=== PATIENT | male | born 1965 | race Caucasian/White ===

== ENCOUNTER 2018-12-22 04:43 | Inpatient (IN) | payer BC ==
[~2018-12-22] VITALS: Ht 185.4 cm; Wt 78.7 kg
[2018-12-22 05:58] LABS: Basophils # (auto) 0 uL; Basophils % (auto) 0.3 % (0.0-2.0); Eosinophils # (auto) 0 uL; Eosinophils % (auto) 0.2 % (0.0-7.0); Hematocrit 45.4 % (41.0-53.0); Hemoglobin 15.4 g/dL (13.5-17.5); Lymphocytes # (auto) 0.8 uL; Lymphocytes % (auto) 11.8 % (10.0-50.0); Mean Corpuscular Hemoglobin 32.5 pg (28.0-32.0); Mean Corpuscular Volume 95.7 fL (80.0-100.0); Monocytes # (auto) 0.5 uL; Monocytes % (auto) 7.8 % (0.0-12.0); Neutrophils # (auto) 5.2 uL; Neutrophils % (auto) 79.9 % (37.0-80.0); Nucleated Red Blood Cells % 0.2 %; Platelet Count (auto) 228 10^3/uL (140-450); Red Blood Cells 4.75 10^6/uL (4.5-5.90); White Blood Cell 6.5 10^3/uL (4.4-10.8)
[2018-12-22 06:20] LABS: Albumin 3.5 g/dL (3.4-5.0); Anion Gap 11 (5-15); Blood Urea Nitrogen 18 mg/dL (7-18); Calcium 8.6 mg/dL (8.5-10.1); Carbon Dioxide 24 mmol/L (21-32); Chloride 101 mmol/L (98-107); Glucose 144 mg/dL (74-106); Lipase 244 U/L (73-393); Potassium 3.3 mmol/L (3.5-5.1); Sodium 136 mmol/L (136-145)
[2018-12-22 06:27] LABS: Alanine Aminotransferase 108 U/L (16-61); Alkaline Phosphatase 110 U/L (45-117); Amylase 44 U/L (25-115); Aspartate Aminotransferase 80 U/L (15-37); BUN/Creatinine Ratio 20.2; Bilirubin, Total 1.1 mg/dL (0.2-1.0); GFR African American 114 mL/min; GFR Non-African American 94 mL/min; Total Protein 7.7 g/dL (6.4-8.2)
[2018-12-22] MEDS ORDERED: hydrALAZINE HCL 20 MG/ML VL IV ONE (06:30)
[2018-12-22] MEDS ORDERED: PANTOPRAZOLE 40 MG/10 ML VIAL INJ IV STA (06:39)
[2018-12-22] MEDS ORDERED: SODIUM CHLORIDE 0.9% 1,000 ML IVB ONE (06:39)
[2018-12-22] MEDS ORDERED: MORPHINE SULFATE 4 MG/ML SYR/VIAL IV ONE (06:45)
[2018-12-22] MEDS ORDERED: ONDANSETRON HCL 4 MG/2 ML VIAL IV ONE ×2 (06:45→11:15)
[2018-12-22 06:57] LABS: Urine Bacteria NONE SEEN /hpf (None Seen); Urine Blood Negative /uL (Negative); Urine Hyaline Cast FEW /lpf (0 - 2); Urine Specific Gravity 1.026 (1.001-1.035); Urine WBC 2 /hpf (0 - 3)
[2018-12-22] MEDS ORDERED: PIPERACILLIN-TAZOB 3.375GM 100 ML IV ONE (07:45)
[2018-12-22 08:48] LABS: INR 0.92 (0.9-1.15); Partial Thromboplastin Time 23.1 sec (23.78-33.04)
[2018-12-22] MEDS ORDERED: MIDAZOLAM HCL 1MG/1ML-2 ML VIAL ONE (09:01)
[2018-12-22] MEDS ORDERED: ROCURONIUM 10MG/ML 10ML VIAL IV ONE (09:01)
[2018-12-22] MEDS ORDERED: PROPOFOL 10 MG/ML 20 ML IV ONE (09:01)
[2018-12-22] MEDS ORDERED: fentaNYL CITRATE 100 MCG/2 ML VL ONE (09:01)
[2018-12-22] MEDS ORDERED: metroNIDAZOLE 500MG/100ML 100 ML IV ONE (09:09)
[2018-12-22] MEDS ORDERED: HYDROmorphone HCL 2 MG/ML VL ONE (09:58)
[2018-12-22] MEDS ORDERED: fentaNYL CITRATE 5 ML ONE (10:28)
[2018-12-22] MEDS ORDERED: HYDROmorphone HCL 2 MG/ML VL IV PRN ×2 (11:15)
[2018-12-22] MEDS ORDERED: hydrALAZINE HCL 20 MG/ML VL IV PRN (11:15)
[2018-12-22] MEDS ORDERED: ePHEDrine SULFATE 50 MG/ML AMP IV PRN (11:15)
[2018-12-22] MEDS: SODIUM CHLORIDE 0.9% 1,000 ML IV SCH ×2 (14:00→22:09)
[2018-12-22] MEDS ORDERED: NITROGLYCERIN 0.4 MG SL TAB SL PRN (14:00)
[2018-12-22] MEDS ORDERED: NICOTINE 21MG/24 HR TOPICAL PATCH TD ONE (14:00)
[2018-12-22] MEDS ORDERED: ONDANSETRON HCL 4 MG/2 ML VIAL IV PRN (14:00)
[2018-12-22] MEDS ORDERED: MORPHINE SULF INJ 2 MG/ML SYRINGE 1ML IV PRN ×2 (14:00)
[2018-12-22] MEDS ORDERED: THIAMINE 100mg/ml INJ (200mg/2ml VIAL) IV ONE (14:00)
[2018-12-22] MEDS ORDERED: FOLIC ACID 1 MG in D5W 5% 50 ML IV ONE (14:00)
[2018-12-22] MEDS ORDERED: PANTOPRAZOLE 40 MG/10 ML VIAL INJ IV ONE (14:00)
[2018-12-22] MEDS ORDERED: POTASSIUM CHL 20MEQ/100ML 100 ML IV ONE (14:00)
--- NOTE | 2018-12-22 15:00 | NUR ---
Telemetry admit from RADHA BEATRIZ KABA admitted to Telemetry unit after SBAR received. Patient oriented to BARBARA ASHRAF RN primary RN, unit, room, bed, and unit policies regarding patient care and visiting hours. Patient now on continuous telemetry monitoring, tele box # 23 and telemetry reading on arrival to unit is NORMAL SINUS RHYTHM 100 bpm. Patient placed on bedside oxygen, weighed by bed scale and encouraged to call if they need something. All questions and concerns addressed, patient verbalized understanding.
[2018-12-22 17:00] VITALS: BP 111/76
[2018-12-22] MEDS: HYDROmorphone HCL 2 MG/ML VL IV PRN ×2 (17:54→21:55)
[2018-12-22] MEDS: PIPERACILLIN-TAZOB 3.375GM 100 ML IV SCH (18:00)
--- NOTE | 2018-12-22 19:00 | NUR ---
Endorsed care to slot shift manager RNBrandie. No distress noted at this time.
--- NOTE | 2018-12-22 20:00 | NUR ---
Opening Shift Note Assumed care of patient, patient awake lying in bed. Patient is s/p bowel resction. Alert and oriented x 4. On oygen at 2L via NC with even and unlabored respirations. Patient has NGT to right nare. Colostomy to LLQ intact with minimal amount of liquid BM. Hypoactive bowel sounds present throughout. Mid abd incision with dressing CDI. Abd binder on. SCD's on to bilateral legs with machine on. No S/S of distress or SOB. Patient reports abd pain 5/10, patient reports pain is tolerable at this, educated patient on pain management, patient verbalized understanding. Patient remains NPO. Instructed on POC and to call for assist PRN, will continue to monitor for changes Q1hr and PRN.
[2018-12-22 21:27] VITALS: BP 131/87
[2018-12-23] MEDS: PIPERACILLIN-TAZOB 3.375GM 100 ML IV SCH ×4 (00:53→19:02)
[2018-12-23] MEDS: HYDROmorphone HCL 2 MG/ML VL IV PRN ×5 (03:51→23:04)
[2018-12-23 05:00] VITALS: BP 147/81
[2018-12-23 05:59] LABS: Basophils # (auto) 0 uL; Basophils % (auto) 0.2 % (0.0-2.0); Eosinophils # (auto) 0 uL; Lymphocytes # (auto) 0.5 uL; Lymphocytes % (auto) 8.4 % (10.0-50.0); Mean Corpuscular Hemoglobin 32.6 pg (28.0-32.0); Mean Corpuscular Hgb Conc. 34.2 g/dL (32.0-36.0); Mean Corpuscular Volume 95.4 fL (80.0-100.0); Monocytes # (auto) 0.6 uL; Monocytes % (auto) 9.9 % (0.0-12.0); Neutrophils # (auto) 4.7 uL; Neutrophils % (auto) 81.5 % (37.0-80.0); Platelet Count (auto) 151 10^3/uL (140-450); Red Blood Cells 3.98 10^6/uL (4.5-5.90); Red Cell Distribution Width 12.8 % (11.8-14.3); White Blood Cell 5.8 10^3/uL (4.4-10.8)
[2018-12-23 06:14] LABS: Albumin 2.2 g/dL (3.4-5.0); Calcium 6.9 mg/dL (8.5-10.1); Potassium 3.5 mmol/L (3.5-5.1)
[2018-12-23 06:19] LABS: BUN/Creatinine Ratio 12.1; Bilirubin, Total 1.4 mg/dL (0.2-1.0); Total Protein 5.3 g/dL (6.4-8.2)
[2018-12-23] MEDS: SODIUM CHLORIDE 0.9% 1,000 ML IV SCH ×3 (06:26→21:41)
--- NOTE | 2018-12-23 06:59 | NUR ---
Closing Note Patient resting in bed, on oxygen at 2L via NC with even and unlabored respirations. NGT to right nare secured and intact with 40ml dark green drainage. Colostomy to LLQ intact. Mid abd incision with dressing CDI. Abd binder on. SCD's on to bilateral legs with machine on. No S/S of distress or SOB. Patient remains NPO. Endorsed care to day shift RN.
--- NOTE | 2018-12-23 07:00 | NUR ---
Opening Shift Note Assumed care of patient, awake, alert, and oriented x4. No S/S of distress/SOB, but patient reports medial abdominal pain of 8/10. IV in right hand 20 gauge asymptomatic, intact, patent, and infusing normal saline at 125 mL/hour. NG tube patent, set to LIS, and draining dark green output. Valdez catheter patent and draining dark orange urine to gravity. Bed locked and in lowest position and call light is within reach. Instructed on POC and to call for assist PRN, and patient verbalized understanding. Will continue to monitor for changes Q1hr and PRN.
[2018-12-23] MEDS: NICOTINE 21MG/24 HR TOPICAL PATCH TD SCH (09:00)
[2018-12-23 09:03] VITALS: BP 148/83
[2018-12-23] MEDS: PANTOPRAZOLE 40 MG/10 ML VIAL INJ IV SCH (10:30)
[2018-12-23] MEDS: THIAMINE 100mg/ml INJ (200mg/2ml VIAL) IV SCH (10:30)
[2018-12-23] MEDS: FOLIC ACID 1 MG in D5W 5% 50 ML IV SCH (11:00)
[2018-12-23 12:58] VITALS: BP 147/90
--- NOTE | 2018-12-23 16:30 | NUR ---
Dr. Wilder at bedside. New orders received.
[2018-12-23 17:27] VITALS: BP 154/87
--- NOTE | 2018-12-23 19:01 | NUR ---
Miller catheter dc'd Order to discontinue miller catheter. Miller dc'd with clean technique following deflation of balloon. Patient tolerated well with no complaints of pain. Continue care.
[2018-12-23] MEDS: ALBUTEROL SULF 2.5 MG/0.5ML(0.5%) NEB SOLN NEB SCH ×2 (19:05→22:35)
[2018-12-23] MEDS: IPRATROPIUM BROM 0.5 MG/2.5ML INH SOL NEB SCH ×2 (19:05→22:35)
--- NOTE | 2018-12-23 19:56 | NUR ---
RECEIVED PATIENT FROM DAY SHIFT RN. PATIENT RESTING IN BED. NO S/S OF DISTRESS NOTED. C/O PAIN @ 5/10 AFTER PAIN MEDICATION GIVEN EARLIER. PATIENT UNDERSTOOD THE SCHEDULE OF PAIN MANAGEMENT. WILL COME BACK FOR PAIN MEDICATION WHEN THE TIME IS DUE AND PER PATIENT REQUEST. NG TUBE IN PLACE WITH LITTLE GREENISH FLUID OUT. SCD IN PLACE. POC INSTRUCTED AND ENCOURAGED PATIENT TO CALL FOR TECHNOLOGY RECRUITER IF NEEDED. BED IN LOWEST POSITION WITH SIDE RAILS UP X 2. CALL WILHELM WITHIN REACH. ALARM ON. CONTINUE TO MONITOR FOR CHANGES Q1H AND PRN.
[2018-12-23 20:44] VITALS: BP 154/87
[2018-12-23 21:00] VITALS: BP 142/96
--- NOTE | 2018-12-23 21:00 | NUR ---
IV removal PER PATIENT REQUESTED IV DC'd with clean sterile technique, catheter fully intact. Pressure dressing applied to site. Patient tolerated well. NOTE:
--- NOTE | 2018-12-23 21:01 | NUR ---
IV insertion IV access obtained, via clean sterile technique by inserting [22] gauge catheter at [RFA] after [1] attempt(s). IV secured properly. No trauma to site. Patient tolerated well. NOTE: []
--- NOTE | 2018-12-23 22:00 | NUR ---
ROUNDING CHECKED PATIENT, NO S/S OF DISTRESS NOTED. IV RUNNING WELL WITH NO C/O NOW. CONTINUE TO MONITOR.
--- NOTE | 2018-12-23 22:55 | NUR ---
PATIENT URINATED CLEAR AND LIGHT NATALIIA URINE ABOUT 100ML. NO S/S OF PAIN AND DIFFICULTY NOTED. CONTINUE TO MONITOR.
--- NOTE | 2018-12-23 23:04 | NUR ---
PATIENT C/O PAIN @ 04/22. MEDICATED PATIENT ORDERED. CONTINUE TO MONITOR.
--- NOTE | 2018-12-23 23:15 | NUR ---
RT AT BEDSIDE FOR BREATHING TREATMENT. PATIENT STATED NG TUBE WAS OUT. DOUBLE CHECKED, NG TUBE WAS AT THE SAME PLACE IT WAS AT THE BEGINNING OF THE SHIFT. TAPES SECURED. CONTINUE TO MONITOR.
[2018-12-24] MEDS: PIPERACILLIN-TAZOB 3.375GM 100 ML IV SCH ×5 (00:30→23:21)
--- NOTE | 2018-12-24 01:05 | NUR ---
ROUNDING CHECKED PATIENT. NO S/S OF DISTRESS NOTED. PATIENT REFUSED TO ROUND HIM LATER. RESPECTED PATIENT'S WISH AND ENCOURAGED PATIENT TO CALL FOR APPEALS REVIEWER VETERAN IF NEEDED. CONTINUE TO MONITOR.
--- NOTE | 2018-12-24 01:30 | NUR ---
PATIENT CALLED FOR IV PUMP BEEPING. THERE WAS PRESSURE. IV TUBE UNDER PATIENT'S BODY. FIXED IV TUBE. CONTINUE TO MONITOR.
--- NOTE | 2018-12-24 01:45 | NUR ---
SAW PATIENT WALKING ON THE HALLWAY, PATIENT UPSET AND LOOKING FOR ELEVATOR TO ER WITH NO NG TUBE. ASSISTED PATIENT BACK TO BED. CHARGE NURSE VIJAYA AWARE AND TALKED TO PATIENT IN THE ROOM. THE NG TUBE WAS ON THE FLOOR. PATIENT INSISTED TO TALK TO DOCTOR. WILL PAGE DOCTOR MENDIOLA FOR FURTHER INSTRUCTION. CONTINUE TO MONITOR.
--- NOTE | 2018-12-24 01:55 | NUR ---
Called/paged Dr. MENDIOLA called re:PATIENT'S CURRENT SITUATION AND PATIENT WOULD LIKE TO TALK TO MD. Waiting for call back. Continue care.
[2018-12-24] MEDS: ALBUTEROL SULF 2.5 MG/0.5ML(0.5%) NEB SOLN NEB SCH ×4 (02:00→14:00)
[2018-12-24] MEDS: IPRATROPIUM BROM 0.5 MG/2.5ML INH SOL NEB SCH ×4 (02:00→14:00)
--- NOTE | 2018-12-24 02:00 | NUR ---
returned call Dr. KELLY COVERED FOR DR MENDIOLA AND returned call, updated on patient status and reason for call, DR KELLY WANTED DR PALAFOX TO MAKE DECISION FOR NG TUBE AND TALK TO PATIENT. Continue care.
--- NOTE | 2018-12-24 02:04 | NUR ---
Called/paged Dr. PALAFOX called re: PATIENT DID NOT ON NG TUBE AND WOULD LIKE TO TALK TO DOCTOR. Waiting for call back. Continue care.
--- NOTE | 2018-12-24 02:22 | NUR ---
PATIENT WALKED OUT TO ELEVATOR AND STATED WOULD LIKE TO LEAVE FOR AMA, AND COME BACK TOMORROW. INSTRUCTED PATIENT NOT TO LEAVE FOR FURTHER TREATMENT. PATIENT INSISTED TO GO. CHARGE NURSE VIJAYA REPORTED. IV ACCESS REMOVED WELL PATIENT'S ID BAND. NO S/S OF DISTRESS NOTED AT THE TIME OF LEAVING.
--- NOTE | 2018-12-24 02:23 | NUR ---
PT LEFT, [place] TX NOT GIVEN
--- NOTE | 2018-12-24 02:58 | NUR ---
PER CHARGE NURSE VIJAYA, PATIENT IS SMOKING AND SECURITY WITH HIM NOW.
--- NOTE | 2018-12-24 03:30 | NUR ---
Patient transferred to my care. Patient is now in his new room with all belongings. Patient is very upset and agitated but alert and oriented x 4. Patient does not want to wear tele box or ID wristband. Per Gymnastic Teacher, Dr. Foster will be coming to see him shortly. Patient does not want anyone in his room that does not need to be here including CNAs. This RN will take scheduled vitals.
--- NOTE | 2018-12-24 03:50 | NUR ---
REPORTED GIVEN TO ANGELICA MURRAY.
[2018-12-24 04:00] VITALS: BP 149/89
--- NOTE | 2018-12-24 04:24 | NUR ---
Patient signed AMA form specifying that he does not want to wear wristband, tele box, and have an NG tube placed. AMA placed in chart.
--- NOTE | 2018-12-24 04:56 | NUR ---
MD Foster has seen the patient and has agreed that patient does not need NG tube at this time. MD Foster wanted to ensure that patient can receive Ativan q 6 hrs and to ensure patient does get the medication when available.
--- NOTE | 2018-12-24 05:12 | NUR ---
IV insertion IV access obtained, via clean technique by inserting a 22 gauge catheter into a vein in the left forearm after 1 attempts. IV secured properly. No trauma to site. Patient tolerated well.
[2018-12-24] MEDS: SODIUM CHLORIDE 0.9% 1,000 ML IV SCH ×3 (05:25→22:00)
[2018-12-24] MEDS: HYDROmorphone HCL 2 MG/ML VL IV PRN ×4 (05:25→20:35)
--- NOTE | 2018-12-24 06:05 | NUR ---
Patient agreed to allow laborer pipelines to take blood for lab tests.
--- NOTE | 2018-12-24 06:12 | NUR ---
Patient does not want breathing treatment at this time and his oxygen saturation is 94% on RA at this time with no SOB.
[2018-12-24] MEDS: LORazepam 2MG/ML-1ML VIAL IV PRN ×2 (06:14→12:34)
[2018-12-24 06:31] LABS: Basophils # (auto) 0 uL; Basophils % (auto) 0.5 % (0.0-2.0); Eosinophils # (auto) 0 uL; Eosinophils % (auto) 0.1 % (0.0-7.0); Hematocrit 36.6 % (41.0-53.0); Hemoglobin 12.5 g/dL (13.5-17.5); Lymphocytes # (auto) 0.4 uL; Lymphocytes % (auto) 6.4 % (10.0-50.0); Mean Corpuscular Hgb Conc. 34.2 g/dL (32.0-36.0); Mean Corpuscular Volume 96.3 fL (80.0-100.0); Monocytes # (auto) 0.5 uL; Monocytes % (auto) 8.2 % (0.0-12.0); Neutrophils % (auto) 84.8 % (37.0-80.0); Platelet Count (auto) 176 10^3/uL (140-450); Red Cell Distribution Width 12.6 % (11.8-14.3); White Blood Cell 5.9 10^3/uL (4.4-10.8)
[2018-12-24 06:46] LABS: BUN/Creatinine Ratio 12.3; Calcium 7.5 mg/dL (8.5-10.1); Magnesium 1.9 mg/dL (1.6-2.6); Phosphorus 2.3 mg/dL (2.5-4.90)
[2018-12-24 06:47] LABS: Potassium 2.9 mmol/L (3.5-5.1)
--- NOTE | 2018-12-24 07:00 | NUR ---
Respiratory note: SCHEDULED MED NEB TX NOT GIVEN. DOOR ON NOTE TO CHECK WITH RN BEFORE ENTERING ROOM, TERRI ROBERTS STATED PT DID NOT WANT MED NEB TX AT THIS TIME. TERRI ROBERTS, STATED NO DISTRESS NOTED WITH PT, PT IS ON 2L NC. WILL FOLLOW UP WITH PT FOR NEXT SCHEDULED TX.
--- NOTE | 2018-12-24 07:30 | NUR ---
Opening Shift Note Assumed care of patient, awake and alert. No S/S of distress/SOB. Pain reported to abdomen. Pain management options discussed with the patient. Instructed on POC and to call for assist PRN, will continue to monitor for changes Q1hr and PRN.
--- NOTE | 2018-12-24 07:41 | NUR ---
Endorsed low potassium critical value of 2.9 mEq to day shift RNArvind.
[2018-12-24 08:00] VITALS: BP 165/87
[2018-12-24 09:00] VITALS: BP 165/87
--- NOTE | 2018-12-24 10:57 | NUR ---
Respiratory note: SCHEDULED MED NEB TX NOT GIVEN. PATIENT WAS AWAKE AND ALERT NO DISTRESS NOTED PER TERRI FRENCH. TERRI FRENCH WAS IN ROOM WITH PATIENT.
[2018-12-24] MEDS: THIAMINE 100mg/ml INJ (200mg/2ml VIAL) IV SCH (11:12)
[2018-12-24] MEDS: NICOTINE 21MG/24 HR TOPICAL PATCH TD SCH (11:13)
[2018-12-24] MEDS: PANTOPRAZOLE 40 MG/10 ML VIAL INJ IV SCH (11:13)
[2018-12-24] MEDS: FOLIC ACID 1 MG in D5W 5% 50 ML IV SCH (11:13)
--- NOTE | 2018-12-24 13:00 | NUR ---
Patient reports that his son has sent him some stuff in the mail. The patient reports that the package is no where to be found in the hospital. i called PBX to ask if they have received a package today. They report that no package has been delivered today. PBX will notify security that the patient has not received a package.
--- NOTE | 2018-12-24 13:35 | NUR ---
Respiratory note: SCHEDULED MED NEB TX NOT GIVEN. PT IS STILL REFUSING ALL MED NEB TX'S PER RN MICKY. PATIENT DOES NOT WANT TO BE BOTHERED AND HAS A SIGN ON DOOR STILL FOR ALL STAFF.
[2018-12-24] MEDS ORDERED: POTASSIUM CHL 20 Meq TABLET PO ONE (16:15)
--- NOTE | 2018-12-24 16:50 | NUR ---
IV insertion IV access obtained, via clean sterile technique by inserting 22 gauge catheter at left forearm after 1 attempt. IV secured properly. No trauma to site. Patient tolerated well. NOTE:
--- NOTE | 2018-12-24 17:56 | NUR ---
PATIENT BLOOD PRESSURE ELEVATED. SYSTOLIC IN THE 180s. OBTAINED ORDERS FROM DOCTOR MAURY.
[2018-12-24 17:58] VITALS: BP 184/102
--- NOTE | 2018-12-24 18:25 | NUR ---
Respiratory note: NOTIFIED BY TERRI WEEKS, RESPIRATORY MED HAVE BEEN DISCONTINUED.
[2018-12-24] MEDS: hydrALAZINE HCL 20 MG/ML VL IV PRN ×2 (18:33→21:43)
[2018-12-24 18:55] LABS: Basophils # (auto) 0 uL; Basophils % (auto) 0.4 % (0.0-2.0); Eosinophils # (auto) 0 uL; Eosinophils % (auto) 0.3 % (0.0-7.0); Hematocrit 39.5 % (41.0-53.0); Hemoglobin 13.3 g/dL (13.5-17.5); Lymphocytes # (auto) 0.9 uL; Lymphocytes % (auto) 9.9 % (10.0-50.0); Mean Corpuscular Hemoglobin 32.4 pg (28.0-32.0); Mean Corpuscular Hgb Conc. 33.7 g/dL (32.0-36.0); Mean Corpuscular Volume 96.2 fL (80.0-100.0); Monocytes # (auto) 0.9 uL; Neutrophils # (auto) 7.2 uL; Neutrophils % (auto) 79.4 % (37.0-80.0); Platelet Count (auto) 246 10^3/uL (140-450); Red Cell Distribution Width 12.6 % (11.8-14.3)
[2018-12-24 19:16] LABS: BUN/Creatinine Ratio 12.7; Calcium 8.2 mg/dL (8.5-10.1); Potassium 3.5 mmol/L (3.5-5.1)
[2018-12-24 19:30] LABS: Phosphorus 2.3 mg/dL (2.5-4.90)
[2018-12-24 21:54] VITALS: BP 159/107
--- NOTE | 2018-12-24 22:00 | NUR ---
Opening Shift Note Assumed care of patient, awake and alert. No S/S of distress/SOB or pain. Instructed on POC and to call for assist PRN, will continue to monitor for changes Q1hr and PRN.
[2018-12-25] MEDS: HYDROmorphone HCL 2 MG/ML VL IV PRN ×5 (01:15→18:19)
[2018-12-25] MEDS: PIPERACILLIN-TAZOB 3.375GM 100 ML IV SCH ×4 (05:20→23:52)
[2018-12-25] MEDS: hydrALAZINE HCL 20 MG/ML VL IV PRN ×4 (05:20→22:02)
[2018-12-25 05:31] VITALS: BP 183/106
[2018-12-25] MEDS: SODIUM CHLORIDE 0.9% 1,000 ML IV SCH (06:00)
--- NOTE | 2018-12-25 07:14 | NUR ---
Report given to Kim Marrufo to assume care, patient is resting no distress.
--- NOTE | 2018-12-25 07:30 | NUR ---
Pt went outside AMA to smoke, pt made aware he is getting antibiotic at this time and needs to finish it before going outside but he is determined to go outside and finish his antibiotic when he come back.
--- NOTE | 2018-12-25 08:05 | NUR ---
pt is back in the room and re-connected to the IV antibiotic.
[2018-12-25 09:00] VITALS: BP 177/98
--- NOTE | 2018-12-25 09:30 | NUR ---
PAGED SECURITY PT REQUESTED TO TALK TO SECURITY PERSON REGARDING HIS PACKAGE, PER PT HIS SON SENT HIM 2 A PACKAGES FROM [employer] AND [employer] DELIVERED IT IN THE CATEGORY DEVELOPMENT ANALYST YESTERDAY BUT HE DID NOT RECEIVE THE PACKAGE, PER PT HE GOT CONFIRMATION THAT IT WAS DELIVERED YESTERDAY AT [facility] AND SIGNED BY 2 PERSON. PAGED SECURITY TO TALK TO THE PT.
[2018-12-25] MEDS: THIAMINE 100mg/ml INJ (200mg/2ml VIAL) IV SCH (09:31)
[2018-12-25] MEDS: PANTOPRAZOLE 40 MG/10 ML VIAL INJ IV SCH (09:31)
[2018-12-25] MEDS: NICOTINE 21MG/24 HR TOPICAL PATCH TD SCH (09:33)
[2018-12-25] MEDS: FOLIC ACID 1 MG in D5W 5% 50 ML IV SCH (10:51)
--- NOTE | 2018-12-25 10:59 | NUR ---
PT SEEN BY DR. CHINCHILLA HE SAID HE WILL CALL DR. PALAFOX REGARDING DIET ORDER. Addendum: 12/25/18 at 1223 by Niru Gil RN [id number] DR. MENDIOLA ORDERED TO CHANGE IV TO D5 1/2 NS AT 125 MLS /HR.
--- NOTE | 2018-12-25 11:51 | NUR ---
DR. MENDIOLA AT BEDSIDE, AWARE OF HIGH BLOOD PRESSURE BUT PT REFUSED BLOOD PRESSURE MEDICATION, PT EDUCATED REGARDING RISK OF STOKE BUT PT STILL REFUSED.
[2018-12-25 12:29] LABS: BUN/Creatinine Ratio 20.4; Calcium 7.8 mg/dL (8.5-10.1); Potassium 3.5 mmol/L (3.5-5.1)
[2018-12-25] MEDS: D5W/SOD CHL 0.45% 1,000 ML IV SCH ×2 (13:57→20:15)
--- NOTE | 2018-12-25 14:41 | NUR ---
NUTRITION ASSESSMENT NOTES Please refer to link notes of nutrition screen form filed under the intervention section of the plan of care for further details. Est. Needs: 2000 kcal to 2400 kcal (25-30 kcal/kgBW), 81 gms to 97 gms pro (1.0-1.2 gms/kgBW). Will continue to monitor pertinent labs and reassess nutrient need prn Thank you. Addendum: 12/25/18 at [address] Amended: Links added.
--- NOTE | 2018-12-25 15:30 | NUR ---
SPOKE WITH DR. PALAFOX HE ORDERED CLEAR LIQUID DIET.
--- NOTE | 2018-12-25 15:37 | NUR ---
PT GIVEN JELO AND JUICE, WILL CONTINUE TO MONITOR.
[2018-12-25 17:00] VITALS: BP 164/98
--- NOTE | 2018-12-25 20:20 | NUR ---
Opening Shift Note Assumed care of patient, awake and alert. No S/S of distress/SOB or pain. Instructed on POC and to call for assist PRN, will continue to monitor for changes Q1hr and PRN.Patient is complaining that his i.v.pump is always beeping, so inserted another new i.v.line in the left forearm 22gauge x one attempt ,secured it properly in aseptic technique.
[2018-12-25 22:00] VITALS: BP 181/95
[2018-12-25] MEDS: LORazepam 2MG/ML-1ML VIAL IV PRN (22:02)
[2018-12-26] MEDS: HYDROmorphone HCL 2 MG/ML VL IV PRN ×3 (04:34→23:57)
[2018-12-26] MEDS: hydrALAZINE HCL 20 MG/ML VL IV PRN (04:34)
[2018-12-26 04:50] VITALS: BP 169/91
[2018-12-26] MEDS: PIPERACILLIN-TAZOB 3.375GM 100 ML IV SCH ×4 (05:29→23:56)
--- NOTE | 2018-12-26 06:00 | NUR ---
Dressing done in the post operative site, with povidone swab ,patient removed the old dressing. Addendum: 12/26/18 at 0623 by Jacqueline Chan RN Post op. site cleansed with povidone swab, dry with dry gauze and covered with mepore dressing, operative site is very clean ,no signs of infection noted.
--- NOTE | 2018-12-26 06:00 | NUR ---
Colostomy bag emptied and rinsed , with moderate amount of yellow liquid stool output.
[2018-12-26] MEDS: D5W/SOD CHL 0.45% 1,000 ML IV SCH ×3 (06:04→20:15)
[2018-12-26 06:14] LABS: Basophils # (auto) 0 uL; Basophils % (auto) 0.3 % (0.0-2.0); Eosinophils # (auto) 0 uL; Eosinophils % (auto) 0.5 % (0.0-7.0); Hematocrit 43.4 % (41.0-53.0); Hemoglobin 14.8 g/dL (13.5-17.5); Lymphocytes # (auto) 0.7 uL; Mean Corpuscular Hemoglobin 32.2 pg (28.0-32.0); Mean Corpuscular Volume 94.7 fL (80.0-100.0); Monocytes # (auto) 1.1 uL; Monocytes % (auto) 13.7 % (0.0-12.0); Neutrophils % (auto) 76.5 % (37.0-80.0); Nucleated Red Blood Cells % 0.1 %; Platelet Count (auto) 298 10^3/uL (140-450); Red Blood Cells 4.59 10^6/uL (4.5-5.90); Red Cell Distribution Width 12.9 % (11.8-14.3); White Blood Cell 7.8 10^3/uL (4.4-10.8)
[2018-12-26 06:39] LABS: BUN/Creatinine Ratio 9.7; Calcium 8.6 mg/dL (8.5-10.1); Potassium 3.5 mmol/L (3.5-5.1)
--- NOTE | 2018-12-26 07:27 | NUR ---
Report given to Kim Mays to assume care, patient is resting no distress noted.
--- NOTE | 2018-12-26 08:00 | NUR ---
Opening Shift Note Assumed care of patient, awake and alert. No S/S of distress/SOB or pain. With midline abdominal incision with rasta intact, colostomy on ther left side of abdomen intact draining to liquid stools in moderate amount. Patient verbalized desire to be discharge today if OK with the doctors. Instructed on POC and to call for assist PRN, will continue to monitor for changes Q1hr and PRN.
[2018-12-26] MEDS: NICOTINE 21MG/24 HR TOPICAL PATCH TD SCH (08:39)
[2018-12-26] MEDS: THIAMINE 100mg/ml INJ (200mg/2ml VIAL) IV SCH (08:39)
[2018-12-26] MEDS: PANTOPRAZOLE 40 MG/10 ML VIAL INJ IV SCH (08:39)
[2018-12-26 09:00] VITALS: BP_SYST 141; BP_SYST 157; BP_DIAS 91; BP_DIAS 98
[2018-12-26] MEDS: FOLIC ACID 1 MG in D5W 5% 50 ML IV SCH (09:34)
[2018-12-26] MEDS: LORazepam 2MG/ML-1ML VIAL IV PRN (12:37)
[2018-12-26 13:00] VITALS: BP 139/89
[2018-12-26 21:30] VITALS: BP 137/98
--- NOTE | 2018-12-26 21:50 | NUR ---
Pt is asking for changing his colostomy bag because he thinks is leaking. Colostomy bag changed. Pt tolerated well Also changed the abdominal dressing
--- NOTE | 2018-12-26 22:00 | NUR ---
Dressing wet and dirty again. while changing dressing observed coming out of the abdominal incision a serous yellow liquid making the new dressing wet. Paged doctor Cristian.
--- NOTE | 2018-12-26 22:15 | NUR ---
Doctor Foster on bedside removing a rasta and suction yellow fluid from the incision with Yankauer catheter. After suction incision was dressed with 4x4 gauze and new colostomy bag was applied. Pt tolerated well. Received order for wound vac via Wound Care from doctor Foster.
[2018-12-27] MEDS: LORazepam 2MG/ML-1ML VIAL IV PRN (00:44)
[2018-12-27] MEDS: D5W/SOD CHL 0.45% 1,000 ML IV SCH ×3 (04:15→20:15)
[2018-12-27 04:53] VITALS: BP 151/110
--- NOTE | 2018-12-27 05:30 | NUR ---
Pt woke up disoriented pulled his IV out, his dressing and wearing a blanket came out of his room. Not alert and oriented to place, time and situation.
--- NOTE | 2018-12-27 05:40 | NUR ---
Reoriented patient . Wants to go out to smoke. Disagreed and pt asked me to go outside with security. Called charge nurse . Charge nurse indicated to allow pt to go to smoke together with a PERSONNEL RESEARCH PSYCHOLOGIST. PERSONNEL RESEARCH PSYCHOLOGIST not available due to shift change . Pt left alone outside to smoke.
--- NOTE | 2018-12-27 06:00 | NUR ---
Pt on floor again.
[2018-12-27 06:13] LABS: Basophils # (auto) 0 uL; Basophils % (auto) 0.5 % (0.0-2.0); Eosinophils # (auto) 0.1 uL; Eosinophils % (auto) 1.2 % (0.0-7.0); Hematocrit 44.7 % (41.0-53.0); Hemoglobin 15.1 g/dL (13.5-17.5); Lymphocytes # (auto) 0.9 uL; Lymphocytes % (auto) 12.8 % (10.0-50.0); Mean Corpuscular Hemoglobin 32.2 pg (28.0-32.0); Mean Corpuscular Hgb Conc. 33.8 g/dL (32.0-36.0); Mean Corpuscular Volume 95.1 fL (80.0-100.0); Monocytes % (auto) 14.2 % (0.0-12.0); Neutrophils # (auto) 5.1 uL; Neutrophils % (auto) 71.3 % (37.0-80.0); Platelet Count (auto) 302 10^3/uL (140-450); Red Cell Distribution Width 12.9 % (11.8-14.3); White Blood Cell 7.1 10^3/uL (4.4-10.8)
[2018-12-27 06:33] LABS: Calcium 8.2 mg/dL (8.5-10.1); Potassium 3.5 mmol/L (3.5-5.1)
[2018-12-27 06:35] LABS: BUN/Creatinine Ratio 9.2
[2018-12-27] MEDS: PIPERACILLIN-TAZOB 3.375GM 100 ML IV SCH ×3 (07:25→17:44)
[2018-12-27] MEDS: HYDROmorphone HCL 2 MG/ML VL IV PRN ×3 (07:26→22:01)
--- NOTE | 2018-12-27 08:00 | NUR ---
Opening Shift Note Assumed care of patient, awake and alert. No S/S of distress/SOB or pain. With abdominal dressing intact soaked with serous output in moderate amount. Colostomy on left side draining to greenish liquid output in moderate. Instructed to call for assist PRN, will continue to monitor for changes Q1hr and PRN.
--- NOTE | 2018-12-27 08:52 | NUR ---
SS ORDER: faxed to [facility] per Michael at [facility] they will arrange wd vac, HH for pt as well as follow up appts
[2018-12-27] MEDS: PANTOPRAZOLE 40 MG/10 ML VIAL INJ IV SCH (09:12)
[2018-12-27] MEDS: THIAMINE 100mg/ml INJ (200mg/2ml VIAL) IV SCH (09:12)
[2018-12-27] MEDS: NICOTINE 21MG/24 HR TOPICAL PATCH TD SCH (09:13)
[2018-12-27 09:28] VITALS: BP 153/92
--- NOTE | 2018-12-27 10:30 | NUR ---
cover assembler at bedside. Application of wound Vac abdominal area incision site done. Will continue care.
[2018-12-27] MEDS: FOLIC ACID 1 MG in D5W 5% 50 ML IV SCH (10:33)
--- NOTE | 2018-12-27 11:00 | NUR ---
WOUND CARE NOTE: Wound care consult received from nursing to place wound vac to abdominal incision. Patient is a 53yo male s/p exploratory laparotomy with colostomy creation by Dr Edith Foster on 12/22/18. Per notes and bedside RNDavon, patient's incision has been leaking serous fluid and requiring frequent dressing changes throughout the shift. Patient with a midline incision, measuring ~15cm with [address] Patient also with a colostomy to LLQ. Old dressing removed, site cleansed with NS and no-sting skin barrier applied to periwound skin. Periwound skin then draped with transparent film. One piece black sponge place over incision line and covered with transparent film. Tract pad place and suction at 125mm Hg achieved and no leak detect. Patient tolerated well. Next dressing change due for 12/30/18. Addendum: 12/27/18 at 1643 by LORRAINE GABRIEL RN Amended: Links added.
[2018-12-27 12:11] VITALS: BP 143/80
--- NOTE | 2018-12-27 15:20 | NUR ---
Spoke with Yu MURRAYcare connector regarding forms needed to be faxed to [facility], patient needed home health wound vac prior to discharge that was ordered by Dr. Abe Preciado. Instructions received for clarification of the order with Dr. Lisette Foster if he wanted patient home health services for wound vac. Called Dr. Lisette Foster's office, spoke to one of the education courses sales representative and left a message for clarification. Waiting for call back.
--- NOTE | 2018-12-27 15:50 | NUR ---
Received a call from Dr. Lisette Foster, orders received. Patient will be discharged with wound vac and follow up with him as outpatient. May arranged home health services for wound vac.
--- NOTE | 2018-12-27 15:55 | NUR ---
Spoke with Yu MURRAYlivestock caretaker, clarification of home health services for wound vac ordered by Dr. Lisette Foster. Per Yu she will work on the paper works.
[2018-12-27 17:28] VITALS: BP 144/87
--- NOTE | 2018-12-27 20:20 | NUR ---
RECEIVED PT IN BED, A/O X4, IN NO ACUTE DISTRESS. DENIES PAIN/DISCOMFORT. ABDL MIDLINE INCISION INTACT CONNECTED TO WOUND VAC, COLOSTOMY ON LEFT SIDE PRESENT. POC REVIEWED WITH PT, VERBALIZED UNDERSTANDING. CALL LIGHT WITHIN REACH, ENCOURAGED TO CALL IF HELP IS NEEDED. SIDE RAILS UP X2, BED IN LOWEST LOCKED POSITION. PT CAME BACK FROM SMOKING, PER PT, HE ACCIDENTALLY FELL OUTSIDE, HE TRIPPED, DENIED HITTING HIS HEAD, NO PAIN AT THIS TIME. PT OBTAINED R WRIST SKIN TEAR, WOUND CLEANSED WITH NS, PATTED DRY AND COVERED WITH BANDAID. CONTINUE CARE. Addendum: 12/27/18 at 2300 by Gerardo Harper RN [id number]-DR Irene KELLY INFORMED OF INCIDENT.
[2018-12-27 21:30] VITALS: BP 154/90
--- NOTE | 2018-12-27 23:00 | NUR ---
DR Irene KELLY AT BEDSIDE. POC REVIEWED WITH PT. RADHA DC IN AM. PT AGREED. CONTINUE CARE.
[2018-12-28 04:30] VITALS: BP 159/101
[2018-12-28] MEDS: HYDROcodone-ACET 5/325MG TAB PO PRN ×2 (06:33→20:26)
--- NOTE | 2018-12-28 08:00 | NUR ---
Opening Shift Note Assumed care of patient, awake, alert and oriented X4. No S/S of distress/SOB, complains of left, lower quadrant pain, 5/10. IV to right forearm, 22 gauge, patent and saline locked. Left, lower quadrant colostomy draining greenish brow, soft stool into colostomy bag, seal intact, stoma beefy red. Midline abdominal incision with wound vac in place, dressing clean, dry and intact. Instructed on POC and to call for assist PRN, verbalized understanding. Bed locked, in lowest position, call light within reach, will continue to monitor for changes Q1hr and PRN.
[2018-12-28 08:30] VITALS: BP 156/92
[2018-12-28] MEDS ORDERED: THIAMINE HCL 100 MG TAB PO SCH (10:00)
[2018-12-28] MEDS ORDERED: SULFAMETHOX W/TRIMETH(800/160MG) DS TAB PO SCH (10:00)
[2018-12-28] MEDS ORDERED: FOLIC ACID 1 MG TAB PO SCH (10:00)
--- NOTE | 2018-12-28 10:15 | NUR ---
WOUND CARE NOTE: IN TO CHECK FUNCTION OF WOUND VAC AT THIS TIME. PATIENT HAS WOUND VAC TO ABDOMINAL INCISION. THERE IS APPROXIMATELY 50 CC OF SEROUS DRAINAGE WITHIN VACUTAINER. VAC SET AT 125 MM/HG CONTINUOUS. GOOD SUCTION, NO LEAKS DETECTED. THERE IS ORDER FOR WOUND VAC FOR HOME. CASE MANAGEMENT IS WORKING ON THIS. DR. PALAFOX HAS BEEN ADVISED TO SIGN HOME VAC REQUEST FORM IN FRONT OF PATIENT'S CHART. WOUND CARE TEAM WILL CONTINUE TO MONITOR.
[2018-12-28] MEDS: PANTOPRAZOLE 40 MG/10 ML VIAL INJ IV SCH (10:42)
--- NOTE | 2018-12-28 12:49 | NUR ---
Nutrition Follow-up Notes Wt.: 78.7 kg Pt was sleeping with no family by bedside. per pt records pt s/p sx for perforated viscus and colostomy. pt with no distress noted and advanced to regular diet with adequate PO of 100% x 4 per RN doc Est. Needs: 2000 kcal to 2400 kcal (25-30 kcal/kgBW), 81 gms to 97 gms pro (1.0-1.2 gms/kgBW). Will continue to monitor pertinent labs and reassess nutrient need prn Labs: CA 8.2 L. rest labs wnl for today Skin: Brenton scale 21, low risk, incision at site of sx per RN doc GI: Pt had 200 ml BM on 12/27 per clinical documentation improvement specialist. PES: Resolved: Increased nutrient needs r/t acute/chronic medical condition aeb s/p surgery, severe hypoalbuminemia, NPO. Altered nutrition related lab values r/t current/chronic medical condition aeb hypokalemia, hyperbilirubinemia, hypocalcemia and severe hypoalbuminemia Will continue to monitor PO intake skin status, pertinent labs and weight trend. F/u in 3-5 days. Rec.: 1.) If Albumin level continues trending down, consider Prostat 1 pkt BID. 2.) Refer to RD for further nutrition education and weight monitoring upon discharged. 3.) Continue current plan of care.
[2018-12-28 13:28] VITALS: BP 117/70
--- NOTE | 2018-12-28 14:57 | NUR ---
SURGEON Paged Dr Lisette Foster for a second time to follow up if patient needs to go home with a wound vac and if so, wound vac order needs to be signed by him. Awaiting return call.
--- NOTE | 2018-12-28 16:13 | NUR ---
auth for wound vac from Kailey at [facility] is [id number]
[2018-12-28 17:26] VITALS: BP 147/90
--- NOTE | 2018-12-28 18:24 | NUR ---
SURGEON Third message left for Dr Lisette Foster to return call regarding the need for wound vac for home and to have wound vac order signed.
--- NOTE | 2018-12-28 19:18 | NUR ---
Care endorsed to TERRI Cook, night nurse.
--- NOTE | 2018-12-28 19:20 | NUR ---
Opening Shift Note Assumed care of patient from day shift RN Sonia. Patient is awake and alert with no S/S of distress. Wound vac is intact at 125 MMHG continuous. Bed is in lowest position, locked, and call light is in place. Instructed on POC and to call for assist PRN, will continue to monitor for changes Q1hr and PRN.
[2018-12-28] MEDS ORDERED: SULF400T11 PO (20:20)
[2018-12-28] MEDS ORDERED: THIA100T10 PO (20:20)
[2018-12-28] MEDS ORDERED: FOLI1TAB6 PO (20:20)
[2018-12-28 20:23] VITALS: BP 153/95
[2018-12-28] MEDS ORDERED: ACET650T12 PO (20:53)
[2018-12-28] MEDS ORDERED: HYDR-4683 PO (20:53)
--- NOTE | 2018-12-28 21:30 | NUR ---
MS Discharge Discharge instructions given as ordered. Encourage to follow up with PMD as instructed. All questions and concerns addressed. Education given on wound vac and colostomy care. Patient verbalized understanding. Medication reconciliation form completed and copy given to patient. No home medications at Pharmacy. Patient taken to vehicle via wheelchair with all personal belongings, accompanied by staff. No distress noted at time of departure.
--- NOTE | 2018-12-29 10:47 | NUR ---
ss order: Ostomy order faxed to [facility]. Yesterday I faxed [facility] to let them know that pt would need ostomy supplies for home
--- NOTE | 2018-12-29 14:00 | NUR ---
I faxed [employer] form to [facility] approx 30 min ago and tried to talk with rep but he was not available and to call me back. [facility] form updated with [place] and pt's address. I also called pt and informed him of sequence of events and that either myself or Miguelangel RONDON RN for [facility] would call pt with updated information. I attempted to call Kailey at [facility] however she was not available and is to call me back.
--- NOTE | 2018-12-29 15:51 | NUR ---
CALLED [facility] AND WAS TOLD BY REKHA THAT THEY ARE PROCESSING ORDER. WD VAC TO BE DELIVERED VIA UPS TOMORROW. I CALLED [facility] TO LET THEM KNOW ABOUT WD VAC AND TO CALL US ONCE THE SWAP OUT [facility] WD VAC FOR OURS. I CALLED PT TO LET HIM KNOW ABOUT DELIVERY OF WD VAC AND HH TO SEE HIM TOMORROW
--- NOTE | 2018-12-30 08:46 | NUR ---
I called Miguelangel López RN to have him f/u on delivery of wd vac to pt and to call [facility]'s (abraham) [phone] to arrange switch of our wd vac to [facility] wd vac. Miguelangel to arrange nuclear engineering technician to supply analyst our wd vac from pt. Pt's address is [address], [place]
--- NOTE | 2018-12-30 09:20 | NUR ---
Per patient, the wound vac will be delivered to his house tomorrow instead of today. He knows hospital will send someone to pickle cutter the old wound vac after the new one is delivered. Home health nurse has already seen patient today. consumer insight manager, Ines is informed the arrangement.
--- NOTE | 2018-12-30 14:01 | NUR ---
Per [facility]'s HH, wd vac to be delivered between 9-1700 hrs at pt's home tomorrow. If wd vac is at pt's house when HH arrives they will swap out, if not, will have to be done Wednesday
== END 2018-12-28 21:52 | disposition home health service (06) | DRG 329 ==
LOC: ER 04:43 → TELE-WESTW 14:35 → TELE-EAST 12-24 03:48 → EAST 12-24 18:28
PROVIDERS: ADMIT Internal Medicine; ATTEND Internal Medicine
PROC: 0DBN0ZZ Excision of Sigmoid Colon, Open Approach (ICD-10-PCS; 2018-12-22)
PROC: 0D1N0Z4 Bypass Sigmoid Colon to Cutaneous, Open Approach (ICD-10-PCS; principal; 2018-12-22 09:20)
DX: K57.32 Diverticulitis of large intestine without perforation or abscess without bleeding (principal); A41.9 Sepsis, unspecified organism; J44.1 Chronic obstructive pulmonary disease with (acute) exacerbation; E87.6 Hypokalemia; E88.09 Other disorders of plasma-protein metabolism, not elsewhere classified; F17.210 Nicotine dependence, cigarettes, uncomplicated; I10 Essential (primary) hypertension; Z91.19 Patient's noncompliance with other medical treatment and regimen; Z93.3 Colostomy status
CPT/HCPCS: 36415; 71045; 74176; 80048; 80053; 81001; 82150; 83690; 83735; 84100; 84484; 85025; 85610; 85730; 86850; 86900; 86901; 87070; 87075; 87077; 87186; 87205; 93005; 94640; C9113; G0378; J2250; J2405; J2543; J2704; J3480; J3490; J7060

== ENCOUNTER 2019-02-16 12:16 | Emergency (ER) | payer BC ==
[~2019-02-16] VITALS: Ht 172.7 cm; Wt 77.1 kg
[~2019-02-16 12:16] MED LIST: ACET650T12 PO; FOLI1TAB6 PO; HYDR-4683 PO; SULF400T11 PO; THIA100T10 PO
[2019-02-16 13:05] LABS: Basophils # (auto) 0 uL; Basophils % (auto) 0.5 % (0.0-2.0); Eosinophils # (auto) 0 uL; Eosinophils % (auto) 0.1 % (0.0-7.0); Hematocrit 39.2 % (41.0-53.0); Hemoglobin 13.5 g/dL (13.5-17.5); Lymphocytes # (auto) 0.8 uL; Lymphocytes % (auto) 20.5 % (10.0-50.0); Mean Corpuscular Hemoglobin 31.6 pg (28.0-32.0); Mean Corpuscular Hgb Conc. 34.6 g/dL (32.0-36.0); Mean Corpuscular Volume 91.2 fL (80.0-100.0); Monocytes # (auto) 0.4 uL; Neutrophils # (auto) 2.8 uL; Neutrophils % (auto) 68.9 % (37.0-80.0); Nucleated Red Blood Cells % 0.1 %; Platelet Count (auto) 107 10^3/uL (140-450); Red Blood Cells 4.29 10^6/uL (4.5-5.90); Red Cell Distribution Width 14.3 % (11.8-14.3); White Blood Cell 4.1 10^3/uL (4.4-10.8)
[2019-02-16 13:17] LABS: Albumin 3.3 g/dL (3.4-5.0); Anion Gap 17 (5-15); Blood Urea Nitrogen 13 mg/dL (7-18); Carbon Dioxide 22 mmol/L (21-32); Chloride 98 mmol/L (98-107); Glucose 108 mg/dL (74-106); Sodium 137 mmol/L (136-145)
[2019-02-16 13:22] LABS: Alanine Aminotransferase 109 U/L (16-61); Alkaline Phosphatase 105 U/L (45-117); Aspartate Aminotransferase 247 U/L (15-37); BUN/Creatinine Ratio 19.1; Bilirubin, Total 1.3 mg/dL (0.2-1.0); GFR African American 156 mL/min; GFR Non-African American 129 mL/min; Total Protein 7.1 g/dL (6.4-8.2)
[2019-02-16] MEDS ORDERED: SODIUM CHLORIDE 0.9% 1,000 ML IV ONE (15:29)
[2019-02-16] MEDS ORDERED: POTASSIUM EFFERVESENT TAB 25 MEQ PO ONE (15:30)
[2019-02-16 18:36] VITALS: BP 158/83
== END 2019-02-16 18:55 | disposition home or self-care (01) ==
LOC: EDBD 12:16 → ER 12:22
DX: R53.1 Weakness (principal); I10 Essential (primary) hypertension; F17.210 Nicotine dependence, cigarettes, uncomplicated; F12.10 Cannabis abuse, uncomplicated
CPT/HCPCS: 36415; 74176; 80053; 84484; 85025

== ENCOUNTER 2019-03-17 06:52 | Inpatient (IN) | payer SELFPAY ==
[~2019-03-17] VITALS: Ht 180.3 cm; Wt 77.9 kg
[~2019-03-17 06:52] MED LIST changes: -HYDR-4683 PO; +HYDR-4833 PO
[2019-03-17 07:43] LABS: Basophils # (auto) 0 uL; Eosinophils # (auto) 0 uL; Eosinophils % (auto) 0.1 % (0.0-7.0); Lymphocytes # (auto) 0.4 uL; Monocytes # (auto) 0.3 uL; Nucleated Red Blood Cells % 0.1 %
[2019-03-17 07:47] LABS: Basophils % (auto) 0.2 % (0.0-2.0); Hemoglobin 10.1 g/dL (13.5-17.5); Lymphocytes % (auto) 12.8 % (10.0-50.0); Mean Corpuscular Hgb Conc. 34.7 g/dL (32.0-36.0); Mean Corpuscular Volume 95.2 fL (80.0-100.0); Monocytes % (auto) 8.4 % (0.0-12.0); Neutrophils # (auto) 2.7 uL; Neutrophils % (auto) 78.5 % (37.0-80.0); Red Blood Cells 3.05 10^6/uL (4.5-5.90); Red Cell Distribution Width 16.7 % (11.8-14.3); White Blood Cell 3.5 10^3/uL (4.4-10.8)
[2019-03-17 07:58] LABS: Alanine Aminotransferase 117 U/L (16-61); Albumin 3.2 g/dL (3.4-5.0); Anion Gap 19 (5-15); Blood Urea Nitrogen 14 mg/dL (7-18); Calcium 8.3 mg/dL (8.5-10.1); Carbon Dioxide 22 mmol/L (21-32); Chloride 93 mmol/L (98-107); Glucose 77 mg/dL (74-106); Sodium 134 mmol/L (136-145)
[2019-03-17 08:03] LABS: Alkaline Phosphatase 162 U/L (45-117); Aspartate Aminotransferase 295 U/L (15-37); BUN/Creatinine Ratio 14.7; Bilirubin, Total 6.9 mg/dL (0.2-1.0); GFR African American 106 mL/min; GFR Non-African American 87 mL/min; Total Protein 6.3 g/dL (6.4-8.2)
[2019-03-17 08:11] LABS: Potassium 2.7 mmol/L (3.5-5.1)
[2019-03-17] MEDS ORDERED: POTASSIUM EFFERVESENT TAB 25 MEQ GT ONE (09:00)
[2019-03-17] MEDS ORDERED: SODIUM CHLORIDE 0.9% 1,000 ML IV ONE (09:07)
[2019-03-17 09:44] LABS: Platelet Count (auto) 63 10^3/uL (140-450)
[2019-03-17] MEDS: POTASSIUM CHL 20MEQ/100ML 100 ML IV SCH ×4 (09:50→17:53)
[2019-03-17 10:45] LABS: Alanine Aminotransferase 116 U/L (16-61); Albumin 3.2 g/dL (3.4-5.0); Anion Gap 12 (5-15); Blood Urea Nitrogen 14 mg/dL (7-18); Calcium 8.1 mg/dL (8.5-10.1); Carbon Dioxide 28 mmol/L (21-32); Chloride 95 mmol/L (98-107); Glucose 70 mg/dL (74-106); Sodium 135 mmol/L (136-145)
[2019-03-17 10:48] LABS: INR 1.07 (0.9-1.15); Partial Thromboplastin Time 24.4 sec (23.64-32.05)
[2019-03-17 10:50] LABS: Alkaline Phosphatase 168 U/L (45-117); Aspartate Aminotransferase 296 U/L (15-37); BUN/Creatinine Ratio 19.7; Bilirubin, Total 7.5 mg/dL (0.2-1.0); GFR African American 148 mL/min; GFR Non-African American 122 mL/min; Total Protein 6.4 g/dL (6.4-8.2)
[2019-03-17 11:14] LABS: Potassium 2.8 mmol/L (3.5-5.1)
[2019-03-17] MEDS ORDERED: chlordiazePOXIDE HCL 25 MG CAP PO ONE ×2 (12:15→20:00)
[2019-03-17] MEDS ORDERED: LORazepam 2MG/ML-1ML VIAL ONE ×2 (12:55→19:27)
[2019-03-17] MEDS: SODIUM CHLORIDE 0.9% 1,000 ML IV SCH ×2 (13:21→23:34)
[2019-03-17] MEDS ORDERED: LORazepam 2MG/ML-1ML VIAL IV ONE (13:30)
[2019-03-17] MEDS ORDERED: NITROGLYCERIN 0.4 MG SL TAB SL PRN (13:30)
[2019-03-17] MEDS ORDERED: chlordiazePOXIDE HCL 25 MG CAP PO PRN (13:30)
[2019-03-17] MEDS ORDERED: MORPHINE SULF INJ 2 MG/ML SYRINGE 1ML IV PRN (13:30)
[2019-03-17] MEDS ORDERED: THIAMINE 100mg/ml INJ (200mg/2ml VIAL) IV ONE (13:30)
[2019-03-17 13:54] LABS: Amylase 32 U/L (25-115); Lipase 252 U/L (73-393)
[2019-03-17] MEDS: FAMOTIDINE (10MG/ML) 2ML VL IV SCH (15:47)
[2019-03-17] MEDS: SOD CHL 0.9%/ KCL 40MEQ 1,000 ML IV SCH ×2 (15:47→20:35)
[2019-03-17] MEDS ORDERED: chlordiazePOXIDE HCL 25 MG CAP PO SCH (18:00)
[2019-03-17] MEDS: LORazepam 2MG/ML-1ML VIAL IV PRN (19:30)
[2019-03-18] MEDS: chlordiazePOXIDE HCL 25 MG CAP PO SCH ×5 (01:00→23:33)
[2019-03-18] MEDS: LORazepam 2MG/ML-1ML VIAL IV PRN ×3 (01:00→23:34)
[2019-03-18] MEDS: FAMOTIDINE (10MG/ML) 2ML VL IV SCH ×2 (01:49→13:30)
[2019-03-18] MEDS: SOD CHL 0.9%/ KCL 40MEQ 1,000 ML IV SCH ×3 (04:55→21:35)
[2019-03-18 07:20] LABS: Albumin 2.5 g/dL (3.4-5.0); Calcium 7.5 mg/dL (8.5-10.1); Potassium 4.1 mmol/L (3.5-5.1)
[2019-03-18 07:21] LABS: Basophils # (auto) 0 uL; Basophils % (auto) 1.3 % (0.0-2.0); Eosinophils # (auto) 0 uL; Eosinophils % (auto) 0.6 % (0.0-7.0); Hematocrit 28.2 % (41.0-53.0); Hemoglobin 9.5 g/dL (13.5-17.5); Lymphocytes # (auto) 0.7 uL; Lymphocytes % (auto) 24.2 % (10.0-50.0); Mean Corpuscular Hemoglobin 32.6 pg (28.0-32.0); Mean Corpuscular Hgb Conc. 33.7 g/dL (32.0-36.0); Mean Corpuscular Volume 96.5 fL (80.0-100.0); Monocytes # (auto) 0.2 uL; Neutrophils # (auto) 1.8 uL; Neutrophils % (auto) 64.9 % (37.0-80.0); Nucleated Red Blood Cells % 0.2 %; Platelet Count (auto) 79 10^3/uL (140-450); Red Blood Cells 2.92 10^6/uL (4.5-5.90); Red Cell Distribution Width 17.1 % (11.8-14.3); White Blood Cell 2.8 10^3/uL (4.4-10.8)
[2019-03-18 07:25] LABS: BUN/Creatinine Ratio 26.8; Bilirubin, Total 4.7 mg/dL (0.2-1.0); Total Protein 5.3 g/dL (6.4-8.2)
[2019-03-18] MEDS: SODIUM CHLORIDE 0.9% 1,000 ML IV SCH ×2 (09:37→21:40)
[2019-03-18] MEDS: THIAMINE 100mg/ml INJ (200mg/2ml VIAL) IV SCH (09:37)
--- NOTE | 2019-03-18 20:00 | NUR ---
Opening Shift Note Assumed care of patient, awake and alert. No S/S of distress/SOB or pain. Instructed on POC and to call for assist PRN, will continue to monitor for changes Q1hr and PRN.Sitter at bedside.
[2019-03-18 22:00] VITALS: BP 135/83
[2019-03-19] MEDS: FAMOTIDINE (10MG/ML) 2ML VL IV SCH ×2 (01:04→12:36)
[2019-03-19] MEDS: SODIUM CHLORIDE 0.9% 1,000 ML IV SCH ×2 (04:25→13:12)
[2019-03-19 04:59] VITALS: BP 157/92
[2019-03-19] MEDS: chlordiazePOXIDE HCL 25 MG CAP PO SCH ×4 (05:47→23:33)
[2019-03-19] MEDS: SOD CHL 0.9%/ KCL 40MEQ 1,000 ML IV SCH ×2 (05:55→12:36)
--- NOTE | 2019-03-19 07:27 | NUR ---
Report given to Kim Ayala , patient is resting no distress.
--- NOTE | 2019-03-19 07:31 | NUR ---
Told R.n to follow-up to hospitalist about the i.v.fluid with kcl if need to continue, dus to patient has latest order of i.v.f plain N.S.
--- NOTE | 2019-03-19 08:39 | NUR ---
Opening Shift Note Assumed care of patient from Zulma RN, awake and alert. No S/S of distress/SOB or pain. Insructed on POC and to call for assist PRN, will continue to monitor for changes Q1hr and PRN.
[2019-03-19 09:30] VITALS: BP 139/89
[2019-03-19] MEDS: THIAMINE 100mg/ml INJ (200mg/2ml VIAL) IV SCH (10:20)
--- NOTE | 2019-03-19 12:55 | NUR ---
Called/paged to clarify IV fluid order . Waiting for call back. Continue care.
[2019-03-19 13:00] VITALS: BP 138/84
--- NOTE | 2019-03-19 13:02 | NUR ---
returned call Dr. Hunt returned call, updated on patient status and reason for call, orders received to dicontinue the NS 40meq k @120ml/hr continue NS @100ML/HR. Continue care.
--- NOTE | 2019-03-19 13:38 | NUR ---
ROUNDS PATIENT IS RESTING IN BED WITH EYES CLOSED, NO DISTRESS NOTED AND PATIENT DENIES PAIN. OXYGEN SATURATION OF 97% ON ROOM AIR SITTER AT BEDSIDE REPOSITIONED PATIENT EVERY 2 HOURS, PATIENT TOLERATED WELL. BED IN LOWEST POSITION CALL LIGHT WITHIN REACH WILL CONTINUE TO MONITOR
[2019-03-19 18:45] LABS: Alcohol, Urine < 3.0 mg/dL (0-5); Amphetamine Screen, Urine NEGATIVE (NEGATIVE); Barbiturate Scree,Urine NEGATIVE (NEGATIVE); Benzodiazephine Screen, Urine POSITIVE (NEGATIVE); Cannabinoid Screen, Urine POSITIVE (NEGATIVE); Cocaine Screen, Urine NEGATIVE (NEGATIVE); Opiate Scree,Urine NEGATIVE (NEGATIVE); Phencyclidine Screen, Urine NEGATIVE (NEGATIVE)
[2019-03-19 18:55] LABS: Urine Bacteria NONE SEEN /hpf (None Seen); Urine Blood 2+ /uL (Negative); Urine Mucus FEW (None Seen); Urine Specific Gravity 1.022 (1.001-1.035); Urine WBC 8 /hpf (0 - 3)
--- NOTE | 2019-03-19 18:56 | NUR ---
gave report to SERA MURRAY
--- NOTE | 2019-03-19 19:20 | NUR ---
RECEIVED PATIENT LYING IN BED, AWAKE BUT NO VERBAL RESPONSE, WITH SITTER AT BEDSIDE. NO S/S OF RESPIRATORY DISTRESS. ORIENTED ON PLAN OF CARE. BED IS LOCKED AND IN LOWEST LEVEL, SIDE RAILS UP X2, CALL LIGHT WITHIN REACH. WILL CONTINUE TO MONITOR.
[2019-03-19 22:00] VITALS: BP 140/79
[2019-03-20] MEDS: SODIUM CHLORIDE 0.9% 1,000 ML IV SCH ×3 (01:36→21:21)
[2019-03-20] MEDS: FAMOTIDINE (10MG/ML) 2ML VL IV SCH ×2 (01:36→12:34)
[2019-03-20 05:37] VITALS: BP 129/80
[2019-03-20] MEDS: chlordiazePOXIDE HCL 25 MG CAP PO SCH ×4 (05:40→23:56)
[2019-03-20 07:09] LABS: Basophils # (auto) 0 uL; Basophils % (auto) 0.9 % (0.0-2.0); Eosinophils # (auto) 0 uL; Hematocrit 29.6 % (41.0-53.0); Hemoglobin 10.3 g/dL (13.5-17.5); Lymphocytes # (auto) 0.7 uL; Lymphocytes % (auto) 23.4 % (10.0-50.0); Mean Corpuscular Hemoglobin 33.7 pg (28.0-32.0); Mean Corpuscular Volume 96.5 fL (80.0-100.0); Monocytes # (auto) 0.3 uL; Neutrophils # (auto) 1.8 uL; Neutrophils % (auto) 63.7 % (37.0-80.0); Nucleated Red Blood Cells % 0.1 %; Platelet Count (auto) 106 10^3/uL (140-450); Red Blood Cells 3.07 10^6/uL (4.5-5.90); Red Cell Distribution Width 17.5 % (11.8-14.3); White Blood Cell 2.8 10^3/uL (4.4-10.8)
[2019-03-20 07:22] LABS: Albumin 2.3 g/dL (3.4-5.0); Potassium 3.4 mmol/L (3.5-5.1)
[2019-03-20 07:25] LABS: BUN/Creatinine Ratio 15.6; Bilirubin, Total 4.5 mg/dL (0.2-1.0); Calcium 7.7 mg/dL (8.5-10.1); Total Protein 5.2 g/dL (6.4-8.2)
--- NOTE | 2019-03-20 07:29 | NUR ---
CARE ENDORSED TO AM SHIFT RN
--- NOTE | 2019-03-20 07:35 | NUR ---
RECEIVED REPORT AND ASSUMED CARE OF PT. PT RESTING IN BED. NO S/S ACUTE DISTRESS NOTED, SAFETY ATTENDANCE AT BEDSIDE. BED AT LOWEST POSITION. CALL LIGHT AND BELONGINGS WITHIN REACH. WILL CONT TO MONITOR.
[2019-03-20 08:42] VITALS: BP 144/90
[2019-03-20] MEDS: THIAMINE 100mg/ml INJ (200mg/2ml VIAL) IV SCH (10:31)
--- NOTE | 2019-03-20 11:58 | NUR ---
NUTRITION ASSESSMENT NOTES Please refer to link notes of nutrition screen form filed under the intervention section of the plan of care for further details. Est. Needs: 1950 kcal to 2350 kcal (25-30 kcal/kgBW), 78 gms to 91 gms pro (1.0-1.3 gms/kgBW d/t severe hypoalbuminemia). Will continue to monitor pertinent labs and reassess nutrient need prn Thank you. Addendum: 03/20/19 at [address] Amended: Links added.
[2019-03-20] MEDS ORDERED: POTASSIUM CHL 20 Meq TABLET PO ONE (12:45)
[2019-03-20 13:30] VITALS: BP 132/80
[2019-03-20 17:36] VITALS: BP 146/90
[2019-03-20 17:43] LABS: Hepatitis B Surface Antigen Negative (Negative)
[2019-03-20 17:44] LABS: Hepatitis B Core IgM Negative; Hepatitis C Antibody Negative (Negative)
[2019-03-20 17:45] LABS: Hepatitis A Ab IgM Negative
[2019-03-20 22:53] VITALS: BP 147/86
[2019-03-21] MEDS: FAMOTIDINE (10MG/ML) 2ML VL IV SCH ×2 (02:04→14:40)
[2019-03-21 04:41] VITALS: BP 158/94
[2019-03-21] MEDS: chlordiazePOXIDE HCL 25 MG CAP PO SCH ×4 (06:12→23:44)
[2019-03-21] MEDS: SODIUM CHLORIDE 0.9% 1,000 ML IV SCH (06:30)
--- NOTE | 2019-03-21 07:19 | NUR ---
CARE ENDORSED TO AM SHIFT RN
[2019-03-21] MEDS: Ensure Enlive Strawberry 8oz Bottle PO SCH ×2 (08:00→18:00)
[2019-03-21 09:00] VITALS: BP 143/81
[2019-03-21] MEDS ORDERED: FUROSEMIDE 20 MG/2 ML VIAL IV ONE (10:15)
[2019-03-21] MEDS: THIAMINE 100mg/ml INJ (200mg/2ml VIAL) IV SCH (10:33)
--- NOTE | 2019-03-21 13:13 | NUR ---
CALLED FAMILY [phone] AND LEFT A VOICEMAIL . WAITING FOR A CALL BACK.
--- NOTE | 2019-03-21 15:05 | NUR ---
PT COUGHING/CHOKING WHILE EATING. CALLED DR GEE AND NEW ORDERS RECEIVED FOR SWALLOW EVAL.
--- NOTE | 2019-03-21 17:30 | NUR ---
SWALLOW EVALUATED. PATIENT HAS TEETH, ALOC. PATIENT COUGHING BEFORE AND DURING AND AFTER TRIAL. PATIENT UNABLE TO INITIATE SWALLOW OF PUREE OR PUDDING THICK LIQUID. MUST RECOMMEND ALTERNATIVE MEANS OF NUTRITION. UNSAFE FOR PO INTAKE.
[2019-03-21 18:00] VITALS: BP 141/47
--- NOTE | 2019-03-21 19:17 | NUR ---
PT RESTING IN BED. NO S/S ACUTE DISTRESS NOTED.ENDORSED CARE TO NIGHT RN.
[2019-03-21 22:00] VITALS: BP 143/75
[2019-03-22] MEDS: FAMOTIDINE (10MG/ML) 2ML VL IV SCH ×2 (01:38→14:35)
[2019-03-22 06:00] VITALS: BP 137/73
[2019-03-22] MEDS: chlordiazePOXIDE HCL 25 MG CAP PO SCH (06:00)
--- NOTE | 2019-03-22 07:24 | NUR ---
CARE ENDORSED TO AM SHIFT RN
--- NOTE | 2019-03-22 07:30 | NUR ---
Opening Note Received report from night shift manager RN. Patient is resting in bed with eyes closed, shaking and calling name to wake patient. Patient is alert to srlf only, patient whispers name only. Patient is on 2L NC. Respirations labored and uneven, suction performed. Patient has a Valdez catheter in place, patent and draining dark barbie urine. Patient has bruising on neck, bilateral upper and lower extremities. Patient is NPO per failed swallow evaluation. Sitter at bedside for safety. Bed in low and locked position, call light within reach. Will continue to monitor Q1 hour and PRN.
[2019-03-22 07:47] LABS: Basophils # (auto) 0 uL; Basophils % (auto) 0.7 % (0.0-2.0); Eosinophils # (auto) 0 uL; Eosinophils % (auto) 0.5 % (0.0-7.0); Hematocrit 32.5 % (41.0-53.0); Lymphocytes # (auto) 0.8 uL; Lymphocytes % (auto) 20.6 % (10.0-50.0); Mean Corpuscular Hemoglobin 32.9 pg (28.0-32.0); Mean Corpuscular Hgb Conc. 33.8 g/dL (32.0-36.0); Mean Corpuscular Volume 97.4 fL (80.0-100.0); Monocytes # (auto) 0.7 uL; Monocytes % (auto) 18.1 % (0.0-12.0); Neutrophils # (auto) 2.2 uL; Neutrophils % (auto) 60.1 % (37.0-80.0); Platelet Count (auto) 193 10^3/uL (140-450); Red Blood Cells 3.34 10^6/uL (4.5-5.90); White Blood Cell 3.7 10^3/uL (4.4-10.8)
[2019-03-22] MEDS: Ensure Enlive Strawberry 8oz Bottle PO SCH ×2 (08:00→18:00)
[2019-03-22 08:03] LABS: Chloride 104 mmol/L (98-107); Potassium 3.1 mmol/L (3.5-5.1); Sodium 143 mmol/L (136-145)
[2019-03-22 08:07] LABS: Alanine Aminotransferase 93 U/L (16-61); Albumin 2.2 g/dL (3.4-5.0); Anion Gap 13 (5-15); Aspartate Aminotransferase 132 U/L (15-37); BUN/Creatinine Ratio 16.7; Blood Urea Nitrogen 7 mg/dL (7-18); Calcium 7.6 mg/dL (8.5-10.1); Carbon Dioxide 26 mmol/L (21-32); GFR African American 272 mL/min; GFR Non-African American 224 mL/min; Glucose 87 mg/dL (74-106)
[2019-03-22 08:09] LABS: Alkaline Phosphatase 182 U/L (45-117); Total Protein 5.6 g/dL (6.4-8.2)
[2019-03-22 09:00] VITALS: BP 139/80
[2019-03-22] MEDS: THIAMINE 100mg/ml INJ (200mg/2ml VIAL) IV SCH (09:23)
--- NOTE | 2019-03-22 10:00 | NUR ---
Dr. Armida Law at bedside
[2019-03-22 13:00] VITALS: BP 143/87
--- NOTE | 2019-03-22 16:50 | NUR ---
Report given to Ana MURRAY
[2019-03-22 16:54] VITALS: BP 147/78
--- NOTE | 2019-03-22 17:05 | NUR ---
Patient transferred to room 298B. Patient taken with all personal belongings. No signs or symptoms of distress noted at this time.
--- NOTE | 2019-03-22 17:10 | NUR ---
ASSUMED CARE OF PATIENT, RECEIVED SBAR FROM TERRI ACOSTA. NO SIGNS OF SOB/DISTRESS NOTED. HOB HIGH FOWLERS. BED SET TO LOWEST POSITION/LOCKED, BEDSIDE RAILS UP X2, ASPIRATION PRECAUTIONS IN PLACE. SITTER AT BEDSIDE. WILL CONTINUE TO MONITOR Q 1HR AND PRN.
--- NOTE | 2019-03-22 19:28 | NUR ---
MD Powell in to see patient.
--- NOTE | 2019-03-22 19:58 | NUR ---
Called and spoke to Joel, patient's son, to notify him that patient has been hospitalized. Nobody in patient's family was aware that patient had been hospitalized, per son. Son agreed to be NOK. MD Powell had spoken to him just before I did and had given him an update. Son now has our contact information and will be notified with any change in patient status. Addendum: 03/23/19 at 0417 by ARMANDO SON RN Per Joel, patient was living "with his brother Lakhwinder." I do not have any contact information for this man.
[2019-03-22 20:24] LABS: Folate (Folic Acid) 4.74 ng/mL (5.38-24)
[2019-03-22 21:30] VITALS: BP 147/77
--- NOTE | 2019-03-22 22:50 | NUR ---
Spoke to MASOUD Olsen regarding patient's elevated D-Dimer test (1.89) and the patient's low potassium level of 3.1. Orders: 1) 20 mEq of Potassium Chloride IV once, 2) BMP for 0400 on 03/23/19. Orders repeated, verified, and placed.
[2019-03-22] MEDS ORDERED: POTASSIUM CHL 20MEQ/100ML 100 ML IV ONE (23:00)
[2019-03-23] MEDS: FAMOTIDINE (10MG/ML) 2ML VL IV SCH ×2 (01:24→13:35)
--- NOTE | 2019-03-23 01:38 | NUR ---
IV Changed after it began leaking. No infiltration or excoriation noted at site. Same for infiltration. Removed IV with catheter intact and covered site with sterile gauze then wrapped site with Coban. New IV catheter, 20 gauge, inserted into a vein in the left forearm after 1 attempt. IV site secured and covered with tegaderm. Patient tolerated well.
[2019-03-23 05:00] VITALS: BP 145/75
[2019-03-23 06:46] LABS: Anion Gap 12 (5-15); BUN/Creatinine Ratio 21.2; Blood Urea Nitrogen 7 mg/dL (7-18); Calcium 7.7 mg/dL (8.5-10.1); Carbon Dioxide 27 mmol/L (21-32); Chloride 106 mmol/L (98-107); GFR African American 359 mL/min; GFR Non-African American 296 mL/min; Glucose 80 mg/dL (74-106); Potassium 3.6 mmol/L (3.5-5.1); Sodium 145 mmol/L (136-145)
--- NOTE | 2019-03-23 07:45 | NUR ---
OPENING NOTE ASSUMED CARE OF PATIENT. NO SIGNS OF SOB/DISTRESS NOTED. BED SET TO LOWEST POSITION/LOCKED. BEDSIDE RAILS UP X2. CALL LIGHT WITHIN REACH. SITTER AT BEDSIDE. WILL CONTINUE TO MONITOR Q1HR AND PRN.
[2019-03-23 08:00] VITALS: BP 157/85
[2019-03-23] MEDS: Ensure Enlive Strawberry 8oz Bottle PO SCH ×2 (08:00→18:00)
[2019-03-23] MEDS: FOLIC ACID 1 MG in D5W 5% 50 ML IV SCH (10:24)
[2019-03-23] MEDS: THIAMINE 100mg/ml INJ (200mg/2ml VIAL) IV SCH (10:24)
[2019-03-23 12:00] VITALS: BP 132/74
--- NOTE | 2019-03-23 16:38 | NUR ---
assessment Patient is a 53 year old male. It is very hard to hear patient due to his SOB. Patient informed me prior to admission he lived home alone and was independent. Patient informed me he has a fww for home use. Patient has no insurance. I will follow up with Danny Guillermo of [facility] for Medi-jhon status. Patient has 2 ss consults regarding SNF placement. Patient has no payer source for SNF placement. I will try to find family to discuss discharge plan. Addendum: 03/23/19 at 1643 by Marisol Abebe Amended: Links added.
[2019-03-23 17:31] VITALS: BP 135/71
--- NOTE | 2019-03-23 19:19 | NUR ---
ENDORSED CARE TO TERRI ROBERTS.
--- NOTE | 2019-03-23 19:24 | NUR ---
Opening Shift Note Assumed care of patient, awake but alert only to self and only slightly responsive.. No S/S of distress/SOB or pain. Patient on 2 l/min NC. Patient has some audible crackles. Suction performed. Bed is in lowest position and locked. Call light within reach. Board updated. Instructed on POC and to call for assist PRN, will continue to monitor for changes Q1hr and PRN.
[2019-03-24] VITALS (76 sets, daily range): BP systolic 87–185; BP diastolic 51–104
[2019-03-24] MEDS: FAMOTIDINE (10MG/ML) 2ML VL IV SCH ×2 (02:14→12:40)
[2019-03-24] MEDS ORDERED: SUCCINYLCHOLINE CHLORIDE 20 MG/ML 10ML VIAL IV ONE (02:49)
[2019-03-24] MEDS ORDERED: ETOMIDATE (2MG/ML) 20ML VIAL IV ONE (02:49)
[2019-03-24] MEDS ORDERED: MIDAZOLAM DRIP 50 mg/50mL 50 ML IV ONE (03:02)
--- NOTE | 2019-03-24 03:18 | NUR ---
Patient Intubated and is being transferred to ICU. PEGGY called and notified me shortly after 0230 that patient's heart rate was sinus tachycardia in the 130s, previously in 110s. Patient found to have increased audible crackles and was pale compared to previous assessment. Patient was unresponsive to noxious stimuli. Vitals: BP: 168/99 with MAP of 121, HR: 137, RR: 22, O2 saturation 78% on 2 l/min NC, temp 100.2. Patient placed on simple face mask at 8 l/min but O2 sat manolo only to 83%. Charge Nurse notified and agreed to call RT STAT while I stayed with patient. RT paged STAT. I paged MASOUD Marc shortly afterwards who requested RT be called STAT which they already had. RT had already arrived and were assessing patient when I got off the phone with him. RT assessed and recommended patient be intubated. MASOUD Marc arrived shortly thereafter, while RT were taking an ABG sample, and ordered Etomidate 10 mg IV Push and Succinylcholine 50 mg IV Push for sedation. Bar Machine Operator Multiple Spindle notified Charge Nurse Steele that patient would be moved to ICU, room 109 with Madisyn as RN. ICU charge nurse arrived shortly after order was given for sedation by MASOUD Marc. Both medications were given at 0248. Patient intubated at approximately 0251. Stat Chest XR order placed at 0301. MASOUD Marc ordered 0.9% sodium chloride infusion at 75 ml/hr, Versed titrate per protocol. Orders repeated, verified, and placed. Copious thick creamy sputum suctioned from patient's throat. Current vitals after intubation: BP 163/81 with MAP of 115, heart rate 133, O2 saturation: 96%. Versed infusion started by charge nurse TERRI. Patient transferred to room 109.
--- NOTE | 2019-03-24 03:20 | NUR ---
Respiratory note: pt intubated by shamir cruz on first attempt, placed on vent v17, vent connected to red outlet and o2 source, alarms are set and audible, ambu bag and mask at bedside. bs are course crackles t/o, sxd large amount of thick dark green and koch secretions, sputum sample obtained and sent to lab at this time. sxd x2 via ett for same return. electrical discharge machine operator daniel lopez and zeynep ontiveros at bedside. will transfer to ICU soon.
--- NOTE | 2019-03-24 03:28 | NUR ---
Report given to TERRI Mars. Patient transferred to ICU, room 109.
--- NOTE | 2019-03-24 03:30 | NUR ---
ARRIVAL NOTE RECEIVED PT FROM FLOOR ON MECHANICAL VENTILATOR WITH FENTANYL AND VERSED STARTED. FACIAL GRIMACING TO STIMULATION. PUPILS ARE 3 AND SLUGGISH. HR 130. SINUS TACHYCARDIA. TEMPERATURE OF 102.4 AXILLARY. 20 G TO L FA. NGT PLACED TO LEFT NARE CLAMPED AND PLACEMENT VERIFIED. LOTS OF THIN/WHITE ORAL SECRETIONS. COLOSTOMY TO LEFT UPPER QUADRANT, WITH DARK GREEN MUCOID STOOL. CLEANED AND CHANGED. STOMA PINK/RED. SITE BENIGN. ABDOMEN FLAT AND SOFT. DUARTE CATHETER DRAINING ORANGE URINE WITH SEDIMENT, HUNG BELOW BLADDER AND FREE OF KINKS. BRUISE TO UPPER MIDDLE CHEST. SACRUM WITH OPTIFOAM AND BLANCHABLE REDNESS TO COCCYX. BED LOCKED IN LOWEST POSITION SIDE RAILS UP XF FOR PT SAFETY. ALL ALARMS ON AND AUDIBLE. PT IN FULL VIEW OF RN. CONTINUE CARE
--- NOTE | 2019-03-24 04:00 | NUR ---
TEMPERATURE RECTAL PROBE PLACED FOR CLOSE TEMPERATURE MONITORING. TEMP 104 RECTALLY. COOLING BLANKETS AND ICE PACKS PLACED. HOSPITALIST PAGED FOR ORDERS.
--- NOTE | 2019-03-24 04:05 | NUR ---
Called and left a brief voicemail message for Joel Shah, patient's son and NOK, that there was a change in the patient's status but did not go into more detail over voicemail. Requested Joel call ICU for more information and left call back number with ICU extension.
[2019-03-24 04:17] LABS: Basophils # (auto) 0 uL; Basophils % (auto) 0.7 % (0.0-2.0); Eosinophils # (auto) 0 uL; Hematocrit 40.3 % (41.0-53.0); Lymphocytes # (auto) 0.4 uL; Lymphocytes % (auto) 7.7 % (10.0-50.0); Mean Corpuscular Hemoglobin 32.5 pg (28.0-32.0); Mean Corpuscular Hgb Conc. 32.2 g/dL (32.0-36.0); Monocytes # (auto) 0.5 uL; Monocytes % (auto) 9.3 % (0.0-12.0); Neutrophils # (auto) 4.6 uL; Neutrophils % (auto) 82.3 % (37.0-80.0); Nucleated Red Blood Cells % 0.1 %; Platelet Count (auto) 374 10^3/uL (140-450); Red Blood Cells 3.99 10^6/uL (4.5-5.90); Red Cell Distribution Width 17.4 % (11.8-14.3); White Blood Cell 5.6 10^3/uL (4.4-10.8)
--- NOTE | 2019-03-24 04:25 | NUR ---
Respiratory note: at bedside for routine vent check no changes made at this time. will have day shift continue plan of care. current temp is 103.9f.
[2019-03-24] MEDS: fentaNYL Drip 2500mCg/250mlNS 250 ML IV SCH (04:26)
[2019-03-24 04:27] LABS: Anion Gap 9 (5-15); Blood Urea Nitrogen 7 mg/dL (7-18); Calcium 7.9 mg/dL (8.5-10.1); Carbon Dioxide 30 mmol/L (21-32); Chloride 106 mmol/L (98-107); GFR African American 222 mL/min; GFR Non-African American 183 mL/min; Glucose 94 mg/dL (74-106); Potassium 3.8 mmol/L (3.5-5.1); Sodium 145 mmol/L (136-145)
--- NOTE | 2019-03-24 04:50 | NUR ---
Respiratory note: UNABLE TO OBTAIN ABG DUE TO LOW BP, TERRI FREGOSO MADE AWARE. WILL ENDORSE TO DAY SHIFT RT.
--- NOTE | 2019-03-24 06:22 | NUR ---
HOSPITALIST MASOUD NUNEZ CALLED BACK TO GIVE ORDERS ON HIGH TEMPERATURE. WILL CARRY OUT IN EMAR.
--- NOTE | 2019-03-24 06:23 | NUR ---
TEMP REASSESS TEMP 101.0 AT THIS TIME. WILL CONTINUE TO MONITOR
[2019-03-24] MEDS ORDERED: ACETAMINOPHEN 650 mg PER 20 mL UD GT PRN (06:30)
[2019-03-24] MEDS: MIDAZOLAM DRIP 50 mg/50mL 50 ML IV SCH (07:31)
[2019-03-24] MEDS: Ensure Enlive Strawberry 8oz Bottle PO SCH ×2 (07:32→16:56)
[2019-03-24] MEDS: SODIUM CHLORIDE 0.9% 1,000 ML IV SCH ×2 (07:32→12:41)
--- NOTE | 2019-03-24 08:02 | NUR ---
DR. IVEY HERE TO SEE PATIENT. SEE MD NOTES AND EMR FOR ANY NEW POSSIBLE ORDERS.
[2019-03-24] MEDS ORDERED: VANCOMYCIN 1GM/250ML 250 ML IV ONE (09:30)
[2019-03-24] MEDS ORDERED: VANCOMYCIN PER PHARMACY 0 MG IV SCH (09:30)
--- NOTE | 2019-03-24 09:45 | NUR ---
DR. GEE HERE TO SEE PATIENT. SEE MD NOTES AND EMR FOR ANY NEW POSSIBLE ORDERS.
[2019-03-24] MEDS: PIPERACILLIN-TAZOB 3.375GM 100 ML IV SCH ×3 (10:30→22:00)
[2019-03-24] MEDS: THIAMINE 100mg/ml INJ (200mg/2ml VIAL) IV SCH (10:30)
--- NOTE | 2019-03-24 10:40 | NUR ---
BLOOD PRESSURE DECREASING, DR. Magalys GEE CALLED AND INFORMED. NEW ORDER FOR LEVOPHED. SEE EMR AND IV SPREAD SHEET.
[2019-03-24] MEDS: NOREPINEPHRINE 8 MG/250ML KIT 250 ML IV SCH (11:10)
[2019-03-24] MEDS: FOLIC ACID 1 MG in D5W 5% 50 ML IV SCH (11:11)
[2019-03-24 11:29] LABS: Lactic Acid w/Reflex 2.9 mmol/L (0.4-2.0)
--- NOTE | 2019-03-24 11:29 | NUR ---
NURSE PRACTITIONER TRIP HERE TO SEE PATIENT. SEE MD NOTES AND EMR FOR ANY NEW POSSIBLE ORDERS.
--- NOTE | 2019-03-24 12:17 | NUR ---
Nutrition Follow-up Notes Wt.: 74.5 kg Pt`s intubated sedated with no family by bedside. per pt records pt with PNA and resp failure. pt is currently NPO with no new diet orders Est. Needs: 1950 kcal to 2350 kcal (25-30 kcal/kgBW), 78 gms to 91 gms pro (1.0-1.3 gms/kgBW d/t severe hypoalbuminemia). Will continue to monitor pertinent labs and reassess nutrient need prn Labs: CA 7.9 L, ALB 2.2 L Skin: Brenton scale 14, mod risk, pt's with multiple bruises per RN doc. GI: Pt had 3 BM 03/23 per fabric coating supervisor. PES: Altered nutrition related lab values r/t current/chronic medical condition aeb hypokalemia, low renal labs, hyperbilirubinemia, elev. LFTs, hypocalcemia and severe hypoalbuminemia Increased nutrient needs r/t chronic current medical condition aeb severe hypoalbuminemia, <75% consumed meals. Will continue to monitor NPO status, skin status, pertinent labs and weight trend. F/u in 2 to 3 days. Rec.: 1.) Consider alternate nutrition support if pt continues to be NPO > 48 hrs. If EN is choice of route consider Jevity 1.2 @ 70 ml.hr per MD approval. 2) If Albumin level continues trending down, consider Prostat 1 pkt BID. 3.) Refer to RD for further nutrition education and weight monitoring upon discharged. 4.) Continue current plan of care.
[2019-03-24] MEDS: VANCOMYCIN 1GM/250ML 250 ML IV SCH ×2 (12:40→20:14)
--- NOTE | 2019-03-24 13:15 | NUR ---
DR. BLEVINS HERE TO SEE PATIENT. SEE MD NOTES AND EMR FOR ANY NEW POSSIBLE ORDERS.
--- NOTE | 2019-03-24 14:20 | NUR ---
PICC line placement Patient/Patient significant other educated on need for PICC line placement. All risks and benefits explained and all questions and concerns addressed prior to procedure. Noted past medical history and allergies with no contraindications. INR and Plt counts within acceptable range. 5 fr PICC line inserted via right basilic vein using [employer] US and Tip Location System. Sterile technique with maximum barrier precautions utilized. Blood return obtained from each of 3 lumens and each flushed easily with NS using proper technique. PICC secured with Stat-lock; biodisc and occlusive dressing applied. Stat portable chest x-ray obtained for PICC tip placement. *Baseline Arm Circumference 27cm. Internal length 43cm. External length 0cm. PICC lot # [id number]. Note: Placed easily x1 attempt
[2019-03-24] MEDS ORDERED: LIDOCAINE 1% (LOCAL ANESTH.) PF 5ml SDV ID ONE (14:30)
--- NOTE | 2019-03-24 15:39 | NUR ---
OK to use PICC line Xray completed. OK to use PICC line by Radiologist.
--- NOTE | 2019-03-24 16:34 | NUR ---
DR. MOLINA HERE TO SEE PATIENT. SEE MD NOTES AND EMR FOR ANY POSSIBLE NEW ORDERS.
--- NOTE | 2019-03-24 18:06 | NUR ---
PATIENT TAKEN TO CT FOR CT OF ABDOMEN AND PELVIS.
--- NOTE | 2019-03-24 19:30 | NUR ---
Opening shift note Received pt on mechanical ventilator. Sedated on versed and fentanyl. Pt does open eyes to verbal stimuli. Does not track or follow commands. Movement of upper extremities seen. Sinus rhythm on bedside monitor. Levophed gtt on. Lungs sound clear and diminished at bases. Neck bruising and B/L upper extremity bruising seen with scabs to knees. NGT to left nare clamped and positive placement verified. Colostomy in place to left upper abdomen with dark mucoid stool. PICC line to AMELIA. site benign and all ports patent. Valdez catheter in place draining bright orange urine with sediment. Hung below bladder and free of kinks. Bed locked in lowest position. all alarms on and audible. Pt in full view of RN. Pt does not seem in any pain or distress noted. Will continue care.
[2019-03-24] MEDS: SODIUM CHLOR 0.9% PF (SALINE LOCK) 10ML VIAL/SYR IV SCH (22:00)
[2019-03-25] VITALS (104 sets, daily range): BP systolic 103–139; BP diastolic 54–104
[2019-03-25] MEDS: FAMOTIDINE (10MG/ML) 2ML VL IV SCH ×2 (01:30→14:10)
[2019-03-25] MEDS: MIDAZOLAM DRIP 50 mg/50mL 50 ML IV SCH (03:00)
[2019-03-25 03:53] LABS: Basophils # (auto) 0.1 uL; Eosinophils # (auto) 0 uL; Eosinophils % (auto) 0.2 % (0.0-7.0); Hemoglobin 10.3 g/dL (13.5-17.5); Lymphocytes # (auto) 0.8 uL; Lymphocytes % (auto) 8.3 % (10.0-50.0); Mean Corpuscular Hemoglobin 32.9 pg (28.0-32.0); Mean Corpuscular Hgb Conc. 33.3 g/dL (32.0-36.0); Mean Corpuscular Volume 98.8 fL (80.0-100.0); Monocytes # (auto) 0.8 uL; Monocytes % (auto) 9.2 % (0.0-12.0); Neutrophils # (auto) 7.4 uL; Neutrophils % (auto) 81.3 % (37.0-80.0); Platelet Count (auto) 260 10^3/uL (140-450); Red Blood Cells 3.14 10^6/uL (4.5-5.90); White Blood Cell 9.1 10^3/uL (4.4-10.8)
--- NOTE | 2019-03-25 04:00 | NUR ---
CARES CHG WIPE BATH GIVEN AND PARTIAL LINEN CHANGE. PT FACIAL GRIMACES TO STIMULI AND MOVES UPPER EXTREMITIES WITH RESISTANCE. ORAL AND REECE CARE DONE.
[2019-03-25 04:11] LABS: Albumin 1.6 g/dL (3.4-5.0); BUN/Creatinine Ratio 26.8; Bilirubin, Total 3.9 mg/dL (0.2-1.0); Calcium 7.6 mg/dL (8.5-10.1)
[2019-03-25] MEDS: PIPERACILLIN-TAZOB 3.375GM 100 ML IV SCH ×4 (05:05→22:00)
[2019-03-25] MEDS: VANCOMYCIN 1GM/250ML 250 ML IV SCH ×2 (05:05→13:45)
--- NOTE | 2019-03-25 05:31 | NUR ---
SPOKE WITH HOSPITALIST, MAYRA HAND SPLITTER, ABOUT POTASSIUM LEVEL OF 3.0. NEW ORDERS FOR 40 MEQ OF POTASSIUM IVPB.
[2019-03-25] MEDS: POTASSIUM CHL 20MEQ/100ML 100 ML IV SCH ×3 (06:18→22:42)
[2019-03-25] MEDS: fentaNYL Drip 2500mCg/250mlNS 250 ML IV SCH ×2 (07:21→18:15)
[2019-03-25] MEDS: SODIUM CHLORIDE 0.9% 1,000 ML IV SCH (07:22)
[2019-03-25] MEDS: Ensure Enlive Strawberry 8oz Bottle PO SCH (07:22)
--- NOTE | 2019-03-25 07:44 | NUR ---
MD AT BEDSIDE: ORDERS MD UPDATED ON PT'S STATUS, LABS AND POC FOR TODAY. ORDERS GIVEN AND TO BE CARRIED OUT. WILL CONTINUE TO MONITOR.
--- NOTE | 2019-03-25 08:00 | NUR ---
OPEN RECEIVED REPORT FROM NIGHT RNZENOBIA. ASSUMED CARE OF ICU PATIENT, FULL CODE STATUS. PATIENT SEDATED ON VENT. #8.0 ETT, 26 CM AT LIP. AC 14, 500VT, 30%FIO2, PEEP +5. NGT TO LEFT FIELD, CLAMPED, PLACEMENT VERIFIED. COLOSTOMY TO LUQ. DUARTE TO GRAVITY. RIGHT UPPER ARM PICC LINE PATENT AND FLUSHED AT THIS TIME. PATIENT HAS MULTIPLE BRUISING TO BODY, IN DIFFERENT STAGES OF HEALING. WILL CONTINUE TO TURN PATIENT Q2HRS AND PRN. OFF LOADING PRESSURE AREAS WITH PILLOWS. SEE SIMULATION TECH AND IV FLOW SHEET FOR FURTHER PATIENT INFORMATION. CONTINUE CARE.
[2019-03-25] MEDS: NOREPINEPHRINE 8 MG/250ML KIT 250 ML IV SCH (08:40)
[2019-03-25] MEDS: SODIUM CHLOR 0.9% PF (SALINE LOCK) 10ML VIAL/SYR IV SCH ×2 (09:20→22:00)
--- NOTE | 2019-03-25 10:00 | NUR ---
TUBE FEEDINGS STARTED AT THIS TIME JEVITY 1.2 STARTED AT A RATE OF 20 ML/HR VIA FEEDING PUMP. LEFT FIELD NGT PLACEMENT VERIFIED, NO RESIDUALS AT THIS TIME. WILL INCREASE TOLERATED. WILL CONTINUE TO MONITOR.
[2019-03-25] MEDS: FOLIC ACID 1 MG in D5W 5% 50 ML IV SCH (10:28)
[2019-03-25] MEDS: THIAMINE 100mg/ml INJ (200mg/2ml VIAL) IV SCH (10:28)
[2019-03-25] MEDS: Jevity 1.2 Cal/Fiber 1 Liter GT SCH (10:57)
--- NOTE | 2019-03-25 11:30 | NUR ---
DR. BRIGHT AT BEDSIDE: UPDATE MD UPDATED ON PT'S STATUS, LABS AND POC. WILL CONTINUE WITH CURRENT TREATMENT PLAN. WILL CONTINUE TO MONITOR.
--- NOTE | 2019-03-25 12:30 | NUR ---
TEMP 99.9 : COOLING MEASURES APPLIED RECTAL TEMP. ICE PACKS PLACED AT THIS TIME. DECREASING TEMP IN ROOM AT THIS TIME. COOL TOWEL PLACED ON PT'S FOREHEAD. WILL CONTINUE TO MONITOR.
--- NOTE | 2019-03-25 14:02 | NUR ---
WOUND CARE NOTE: Wound care in to see patient due to low Brenton score of 11 and intubation status , putting patient to high risk for skin breakdown. Patient is 53 y/o male with admitting diagnosis of Delirium Tremens, Liver Failure. Patient is resting in ICU bed in Rm 109. He's intubated, sedated and mechanically ventilated. Patient appears to be in no pain using Cardona Marsh Faces Pain Scale. Skin assessment done with the assistance of patient's nurse, TERRI Morley. Patient noted with multi intact ecchymosis to extremities and L lateral abdomen. He has intact, dry, scabbed abrasion to Rt forearm and Rt knee. His left upper arm has old resolving skin tear measuring 2x2cm. Cleansed with NS, patted dry with gauze, applied Thera honey gel and covered with Opti foam gentle dressing. His sacrum has intact skin with blanchable redness. Laisa care given, applied Barrier cream and covered upper sacrum with preventative Opti foam sacral dressing. Intact skin with blanchable redness noted to arch, plantar aspect of patient's L foot. Redness does not appear to be pressure related. Repositioned patient for comfort facing his Lt. side, redistributed pressure points with pillows and elevated heels on pillows. Patient tolerated well. RECOMMENDATION: BID/PRN cleaning and application of Barrier cream to sacral/buttocks as preventative, Q3days/PRN dressing change to MUMTAZ skin tear per MD order, Dietary consult for low Brenton score, frequent turning and repositioning schedule as condition permits, redistribute pressure points with pillows, elevate heels on pillows, continue monitoring by wound care while patient is mechanically ventilated. Addendum: 03/25/19 at 1703 by Imelda Briggs RN Amended: Links added.
--- NOTE | 2019-03-25 15:30 | NUR ---
RECEIVED REPORT FROM ONELIA, ASSUMED CARE OF PATIENT. ASSESSMENT COMPLETED - SEE SPREADSHEET.
--- NOTE | 2019-03-25 16:00 | NUR ---
TF RESIDUAL 20 ML - WILL CONTINUE TO MONITOR.
--- NOTE | 2019-03-25 18:15 | NUR ---
DR IVEY VISITS ET EXAMINES PATIENT - ORDERS RECEIVED.
[2019-03-25] MEDS: VANCOMYCIN 1,250 MG in D5W 5% 250 ML IV SCH (20:06)
[2019-03-26] VITALS (101 sets, daily range): BP systolic 90–167; BP diastolic 39–82
--- NOTE | 2019-03-26 | NUR ---
RESIDUALS TUBE FEEDING TURNED OFF AT THIS TIME DUE TO HIGH RESIDUALS. PT NOT TOLERATING WELL.
--- NOTE | 2019-03-26 01:15 | NUR ---
BRADYCARDIA PT'S HR WENT DOWN TO 40 AND LOWEST SEEN WAS 39. WENT INTO JUNCTIONAL ARRHYTHMIA. TURNED OFF SEDATION AT THIS TIME AND STIMULATED PT. HR WENT TO 50 AND BACK TO SINUS RHYTHM. WILL CONTINUE TO MONITOR CLOSELY. BILATERAL MITTENS APPLIED FOR [place] SAFETY.
[2019-03-26] MEDS: POTASSIUM CHL 20MEQ/100ML 100 ML IV SCH (01:19)
[2019-03-26] MEDS: FAMOTIDINE (10MG/ML) 2ML VL IV SCH ×2 (01:30→15:14)
[2019-03-26] MEDS ORDERED: DOPamine 1600MCG/ML D5W 250 ML IV ONE (01:54)
--- NOTE | 2019-03-26 02:00 | NUR ---
HOSPITALIST PAGED HOSPITALIST, MASOUD NUNEZ, AND INFORMED OF BRADYCARDIA; LOWEST HR 32. NEW ORDERS RECEIVED.
[2019-03-26] MEDS: DOPamine 1600MCG/ML D5W 250 ML IV SCH ×2 (02:15→19:54)
[2019-03-26] MEDS: MIDAZOLAM DRIP 50 mg/50mL 50 ML IV SCH ×2 (03:00→20:28)
[2019-03-26] MEDS: VANCOMYCIN 1,250 MG in D5W 5% 250 ML IV SCH ×2 (04:00→12:00)
--- NOTE | 2019-03-26 04:00 | NUR ---
CARES FULL BED BATH GIVEN AND FULL LINEN CHANGE. PT REPOSITIONED FOR COMFORT AND BONY PROMINENCES OFFLOADED. SKIN INTEGRITY ASSESSED FOR ANY CHANGES; NONE NOTED. PT TOLERATED WELL.
[2019-03-26 04:06] LABS: Basophils # (auto) 0 uL; Basophils % (auto) 0.6 % (0.0-2.0); Eosinophils # (auto) 0 uL; Eosinophils % (auto) 0.5 % (0.0-7.0); Hematocrit 32.8 % (41.0-53.0); Hemoglobin 10.8 g/dL (13.5-17.5); Lymphocytes # (auto) 0.6 uL; Lymphocytes % (auto) 8.7 % (10.0-50.0); Mean Corpuscular Hemoglobin 32.9 pg (28.0-32.0); Mean Corpuscular Hgb Conc. 33.1 g/dL (32.0-36.0); Mean Corpuscular Volume 99.6 fL (80.0-100.0); Monocytes # (auto) 0.5 uL; Monocytes % (auto) 7.6 % (0.0-12.0); Neutrophils # (auto) 5.9 uL; Neutrophils % (auto) 82.6 % (37.0-80.0); Platelet Count (auto) 253 10^3/uL (140-450); Red Blood Cells 3.29 10^6/uL (4.5-5.90); Red Cell Distribution Width 16.4 % (11.8-14.3); White Blood Cell 7.2 10^3/uL (4.4-10.8)
[2019-03-26 04:22] LABS: Potassium 3.8 mmol/L (3.5-5.1)
[2019-03-26 04:28] LABS: Albumin 1.6 g/dL (3.4-5.0); BUN/Creatinine Ratio 25.8; Bilirubin, Total 3.5 mg/dL (0.2-1.0); Calcium 7.7 mg/dL (8.5-10.1); Total Protein 5.4 g/dL (6.4-8.2)
[2019-03-26] MEDS: PIPERACILLIN-TAZOB 3.375GM 100 ML IV SCH ×4 (05:56→22:16)
--- NOTE | 2019-03-26 07:15 | NUR ---
REPORT RECEIVED FROM DIRECTOR OF MARKET ANALYSIS NURSE. PATIENT RESTING IN BED AT AT THIS TIME. RESPIRATIONS EVEN AND UNLABORED, INTUBATED AND SEDATED. NO SIGNS OF ACUTE DISTRESS NOTED. BED IN LOW POSITION. WILL CONTINUE TO MONITOR.
--- NOTE | 2019-03-26 08:00 | NUR ---
UPON ASSESSMENT OF PATIENT THERE WAS NOTED TO HAVE HIGH RESIDUALS. CONNECTED NGT TO SUCTION AND 700ML OF TUBE FEEDINGS WAS REMOVED. HELD TUBE FEEDINGS AT THIS TIME AND WILL INFORM MD. CONTINUED NGT TO LIS AT THIS TIME, WILL CONTINUE TO MONITOR.
--- NOTE | 2019-03-26 08:40 | NUR ---
DR GEE AT BEDSIDE TO ASSESS PATIENT AND DISCUSS PLAN OF CARE. MD AWARE THAT PATIENT HAS HIGH RESIDUALS THROUGH NGT OF TUBE FEEDINGS AND THEY ARE HELD AT THIS TIME. ORDERS NOTED IN CHART.
[2019-03-26] MEDS: SODIUM CHLORIDE 0.9% 1,000 ML IV SCH ×2 (09:10→21:40)
[2019-03-26] MEDS: FOLIC ACID 1 MG in D5W 5% 50 ML IV SCH (09:18)
[2019-03-26] MEDS: THIAMINE 100mg/ml INJ (200mg/2ml VIAL) IV SCH (09:18)
[2019-03-26] MEDS: SODIUM CHLOR 0.9% PF (SALINE LOCK) 10ML VIAL/SYR IV SCH ×2 (09:19→22:16)
[2019-03-26] MEDS: NOREPINEPHRINE 8 MG/250ML KIT 250 ML IV SCH (10:38)
--- NOTE | 2019-03-26 12:15 | NUR ---
Nutrition Follow-up Notes Wt.: 69.0 kg Pt`s intubated sedated with no family by bedside. per pt records pt with PNA and resp failure. pt is currently NPO off EN support as per RN pt with very high residuals of around 700 ml noted. pt was on Jevity 1.2 @ 20 ml.hr providing 576 kcals and 26 gm proteins Est. Needs: 1950 kcal to 2350 kcal (25-30 kcal/kgBW), 78 gms to 91 gms pro (1.0-1.3 gms/kgBW d/t severe hypoalbuminemia). Will continue to monitor pertinent labs and reassess nutrient need prn Labs: CA 7.7 L, ALB 1.6 L, TRENT 3.5 H Skin: Brenton scale 11, high risk, pt's with multiple bruises per RN doc. GI: Pt had 3 BM 03/23 per medical claims analyst. PES: Altered nutrition related lab values r/t current/chronic medical condition aeb hypokalemia, low renal labs, hyperbilirubinemia, elev. LFTs, hypocalcemia and severe hypoalbuminemia Increased nutrient needs r/t chronic current medical condition aeb severe hypoalbuminemia, <75% consumed meals. Will continue to monitor NPO status, skin status, pertinent labs and weight trend. F/u in 2 to 3 days. Rec.: 1.) Resume EN support with Jevity 1.2 @ 70 ml.hr as medically feasible. 2) consider PN support to meet > 75% of needs if pt continues to be NPO and GI is not accessible. 3) If Albumin level continues trending down, consider Prostat 1 pkt BID. 3.) Refer to RD for further nutrition education and weight monitoring upon discharged. 4.) Continue current plan of care.
[2019-03-26] MEDS ORDERED: IPRATROPIUM BROM 0.5 MG/2.5ML INH SOL NEB ONE (13:00)
[2019-03-26] MEDS ORDERED: ALBUTEROL SULF 2.5 MG/0.5ML(0.5%) NEB SOLN NEB ONE (13:00)
--- NOTE | 2019-03-26 15:30 | NUR ---
ADMINISTERED PEPCID ORDERED AND PATIENT HAD NOTED BRADYCARDIA LOW 43. STOPPED GIVING MEDICATION AND ADJUSTED DOPAMINE DRIP PER PROTOCOL.WILL CALL MD AND MONITOR PATIENT.
--- NOTE | 2019-03-26 16:06 | NUR ---
SPOKE TO DR Armida GEE ABOUT PATIENT GOING BRADYCARDIC DURING ADMINISTRATION OF PEPCID IV. PER MD DISCONTINUE AND START PATIENT ON PROTONIX IV DAILY.
[2019-03-26] MEDS: IPRATROPIUM BROM 0.5 MG/2.5ML INH SOL NEB SCH ×2 (17:48→23:17)
[2019-03-26] MEDS: ALBUTEROL SULF 2.5 MG/0.5ML(0.5%) NEB SOLN NEB SCH ×2 (17:48→23:17)
--- NOTE | 2019-03-26 19:00 | NUR ---
OPENING NOTE ASSUMED CARE OF PATIENT AT THIS TIME. REPORT RECEIVED FROM DAY SHIFT RN. POC REVIEWED. HEAD TO TOE ASSESSMENT COMPLETE, SEE INTERVENTION SPREADSHEET FOR COMPLETE DETAILS. RECEIVED PT ON VENTILATOR AND SEDATED. VSS AT THIS TIME. RECEIVED PT ON DOPAMINE GTT FOR HEART RATE. IV SITE BENIGN. RECEIVED PT WITH COLOSTOMY BAG. F/C DRAINING TO GRAVITY. BED LOCKED AND IN LOWEST POSITION, SAFETY PRECAUTIONS IN PLACE. WILL MONITOR PT CAREFULLY. Addendum: 03/27/19 at 0303 by DENISE DE JESUS RN RECEIVED PT WITH NGT TO LIS.
[2019-03-26] MEDS: VANCOMYCIN 1GM/250ML 250 ML IV SCH (21:03)
[2019-03-27] VITALS (104 sets, daily range): BP systolic 90–150; BP diastolic 43–103
[2019-03-27] MEDS: fentaNYL Drip 2500mCg/250mlNS 250 ML IV SCH ×2 (03:00→20:27)
[2019-03-27] MEDS: PIPERACILLIN-TAZOB 3.375GM 100 ML IV SCH ×3 (04:00→16:28)
[2019-03-27 04:08] LABS: Basophils # (auto) 0 uL; Basophils % (auto) 0.5 % (0.0-2.0); Eosinophils # (auto) 0 uL; Eosinophils % (auto) 0.7 % (0.0-7.0); Hematocrit 31.4 % (41.0-53.0); Hemoglobin 10.6 g/dL (13.5-17.5); Lymphocytes # (auto) 0.6 uL; Lymphocytes % (auto) 10.4 % (10.0-50.0); Mean Corpuscular Hemoglobin 32.9 pg (28.0-32.0); Mean Corpuscular Hgb Conc. 33.8 g/dL (32.0-36.0); Mean Corpuscular Volume 97.5 fL (80.0-100.0); Monocytes # (auto) 0.7 uL; Monocytes % (auto) 10.9 % (0.0-12.0); Neutrophils # (auto) 4.7 uL; Neutrophils % (auto) 77.5 % (37.0-80.0); Platelet Count (auto) 232 10^3/uL (140-450); Red Blood Cells 3.22 10^6/uL (4.5-5.90); Red Cell Distribution Width 16.1 % (11.8-14.3); White Blood Cell 6.1 10^3/uL (4.4-10.8)
[2019-03-27 04:23] LABS: Albumin 1.5 g/dL (3.4-5.0); Potassium 3.7 mmol/L (3.5-5.1)
[2019-03-27 04:27] LABS: BUN/Creatinine Ratio 16.5; Bilirubin, Total 3.4 mg/dL (0.2-1.0); Total Protein 5.1 g/dL (6.4-8.2)
[2019-03-27 04:33] LABS: Calcium 5.9 mg/dL (8.5-10.1)
--- NOTE | 2019-03-27 04:39 | NUR ---
CA 5.9 HOSPITALIST PAGED AT THIS TIME.
--- NOTE | 2019-03-27 05:21 | NUR ---
HOSPITALIST RETURNED PAGE, NO ORDERS GIVEN AT THIS TIME.
--- NOTE | 2019-03-27 05:21 | NUR ---
LINEN CHANGE CHG BATH GIVEN. PT TOLERATED WELL. SKIN INTEGRITY ASSESSED AT THIS TIME, NO CHANGES NOTED. PT REPOSITIONED FOR SAFETY AND COMFORT. WILL CONTINUE WITH CARE.
[2019-03-27] MEDS ORDERED: CALCIUM GLUC 4.65meq/50ml D5AE 50 ML IV ONE ×2 (06:00→07:00)
[2019-03-27] MEDS: IPRATROPIUM BROM 0.5 MG/2.5ML INH SOL NEB SCH ×4 (06:16→23:38)
[2019-03-27] MEDS: ALBUTEROL SULF 2.5 MG/0.5ML(0.5%) NEB SOLN NEB SCH ×4 (06:16→23:38)
--- NOTE | 2019-03-27 08:15 | NUR ---
DR GEE AT BEDSIDE UPDATED ON CURRENT STATUS. NEW ORDERS RECEIVED
[2019-03-27] MEDS: FOLIC ACID 1 MG in D5W 5% 50 ML IV SCH (10:00)
[2019-03-27] MEDS ORDERED: PANTOPRAZOLE 40 MG/10 ML VIAL INJ IV SCH (10:00)
[2019-03-27] MEDS: SODIUM CHLOR 0.9% PF (SALINE LOCK) 10ML VIAL/SYR IV SCH ×2 (10:00→22:10)
[2019-03-27] MEDS: NOREPINEPHRINE 8 MG/250ML KIT 250 ML IV SCH (10:38)
[2019-03-27] MEDS: THIAMINE 100mg/ml INJ (200mg/2ml VIAL) IV SCH (10:48)
[2019-03-27] MEDS: METOCLOPRAMIDE HCL 5MG/ml INJ 2ml VIAL IV SCH ×2 (10:50→22:10)
[2019-03-27] MEDS: SODIUM CHLORIDE 0.9% 1,000 ML IV SCH (11:03)
[2019-03-27] MEDS ORDERED: GASTROGRAFIN 120 ML SOL ONE (13:30)
[2019-03-27] MEDS: DOPamine 1600MCG/ML D5W 250 ML IV SCH (13:48)
[2019-03-27] MEDS: VANCOMYCIN 1GM/250ML 250 ML IV SCH (15:00)
[2019-03-27] MEDS: MIDAZOLAM DRIP 50 mg/50mL 50 ML IV SCH (15:27)
--- NOTE | 2019-03-27 19:30 | NUR ---
OPEN NOTES Assumed care of patient. Patient is intubated and sedated. Patient open eyes to call. Obeys simple commands. Pupils both reactive to light. Patient is jaundice. VS stable. Full assessment done - refer interventions. Sedation : IV Versed and IV Fentanyl - will wean off for CPAP trial in AM ECG SR, HR 60-70/min, BP 110-120 mmHg systolic. IV Dopamine at 0.5mcg/kg/min - will wean off. Patient has NGT left nares- clamped, Colostomy at left lower abdomen with light brownish green watery output about 450mls. Valdez catheter - with light barbie urine. Repositioned. Head up 30 degrees. Suctioned and Oral care done. SCD at both legs.
--- NOTE | 2019-03-27 20:00 | NUR ---
DOPAMINE OFF Patient's HR 65 -70/min , BP stable IV Dopamine turned off will continue to monitor
--- NOTE | 2019-03-27 20:00 | NUR ---
RADIOLOGY Radiology staff did a Xray of the abdomen to check if the contrast is cleared out. He said its cleared out He said that he will send it to the radiologist to be read.
[2019-03-27] MEDS ORDERED: VANCOMYCIN 1GM/250ML 250 ML IV SCH (22:00)
[2019-03-28] VITALS (95 sets, daily range): BP systolic 100–166; BP diastolic 55–99
--- NOTE | 2019-03-28 | NUR ---
SEDATION Patient has order for CPAP trial in AM. IV Versed turned off IV Fentanyl at 25mcg/hr - will titrate
[2019-03-28] MEDS: PIPERACILLIN-TAZOB 3.375GM 100 ML IV SCH ×2 (00:01→06:00)
[2019-03-28] MEDS: SODIUM CHLORIDE 0.9% 1,000 ML IV SCH ×2 (00:20→13:44)
--- NOTE | 2019-03-28 03:00 | NUR ---
RADIOLOGY Talked to psychiatric tech and follow up the result of the small bowel xray He said he will let the Radiologist know and put the order stat
--- NOTE | 2019-03-28 04:00 | NUR ---
Patient bathe/linen change Patient cleaned with CHG wipes. Skin integrity assessed for any changes. Linens changed. Patient repositioned for comfort.
[2019-03-28 04:09] LABS: Basophils # (auto) 0.1 uL; Basophils % (auto) 1.9 % (0.0-2.0); Eosinophils # (auto) 0 uL; Eosinophils % (auto) 0.5 % (0.0-7.0); Hematocrit 29.2 % (41.0-53.0); Lymphocytes # (auto) 0.4 uL; Lymphocytes % (auto) 5.9 % (10.0-50.0); Mean Corpuscular Hemoglobin 33.3 pg (28.0-32.0); Mean Corpuscular Hgb Conc. 34.3 g/dL (32.0-36.0); Mean Corpuscular Volume 97.2 fL (80.0-100.0); Monocytes # (auto) 0.6 uL; Monocytes % (auto) 9.1 % (0.0-12.0); Neutrophils # (auto) 5.5 uL; Neutrophils % (auto) 82.6 % (37.0-80.0); Platelet Count (auto) 224 10^3/uL (140-450); White Blood Cell 6.7 10^3/uL (4.4-10.8)
[2019-03-28 04:22] LABS: Albumin 1.5 g/dL (3.4-5.0); Calcium 7.6 mg/dL (8.5-10.1); Potassium 3.6 mmol/L (3.5-5.1)
[2019-03-28 04:29] LABS: Bilirubin, Total 3.6 mg/dL (0.2-1.0)
[2019-03-28] MEDS: ALBUTEROL SULF 2.5 MG/0.5ML(0.5%) NEB SOLN NEB SCH ×3 (06:08→18:33)
[2019-03-28] MEDS: IPRATROPIUM BROM 0.5 MG/2.5ML INH SOL NEB SCH ×3 (06:08→18:33)
[2019-03-28] MEDS: DOPamine 1600MCG/ML D5W 250 ML IV SCH (07:42)
--- NOTE | 2019-03-28 08:00 | NUR ---
Neuro status Patient opening eyes to voice, answering simple questions, following simple commands. All sedation off at this time. Plans for cpap today.
--- NOTE | 2019-03-28 08:46 | NUR ---
CARES/DESATURATION While a.m assessment completed patient alarming high peak pressures, patient having large amount of thick/thin creamy et secretions breathing in the 30's and labored. Some gurgling audible. R.T at bedside, cuff adjusted and patient noted to desaturate as low as 50's. Patient bagged, HME changed as it is noted to be saturated. Patient reassessed, hr 94 rr 23-25, pox 94-96% bp 157/80. Patient on low dose fent at 10mcg, Will continue to monitor closely at this time.
--- NOTE | 2019-03-28 09:30 | NUR ---
Patient tolerating ventilator well. Fent gtt off. Patient only opens eyes to voice or light shaking, Awaiting patient to become more alert to start cpap trial.
[2019-03-28] MEDS ORDERED: cefTRIAXone 1GM/50ML D5W 50 ML IV SCH (10:00)
--- NOTE | 2019-03-28 10:00 | NUR ---
Retail Support Specialist PHYSICS PROFESSOR at bedside. Updated on patients status. Informed patient has been off Dopamine gtt as reported. No new orders.
[2019-03-28] MEDS: NOREPINEPHRINE 8 MG/250ML KIT 250 ML IV SCH (10:38)
[2019-03-28] MEDS: FOLIC ACID 1 MG in D5W 5% 50 ML IV SCH (10:43)
[2019-03-28] MEDS: METOCLOPRAMIDE HCL 5MG/ml INJ 2ml VIAL IV SCH ×2 (10:43→22:00)
[2019-03-28] MEDS: SODIUM CHLOR 0.9% PF (SALINE LOCK) 10ML VIAL/SYR IV SCH ×2 (10:49→22:00)
--- NOTE | 2019-03-28 11:40 | NUR ---
Nutrition Follow-up Notes Wt.: 75.3 kg as of yesterday. Pt's intubated, off from sedation, no immediate family at bedside during rounds earlier. Pt's currently NPO, with EN support temporarily held for CPAP trial today, per nursing. Pt's previously n Jevity 1.2 @ 20 ml.hr providing 576 kcal and 26 gm proteins Est. Needs: 1950 kcal to 2350 kcal (25-30 kcal/kgBW), 78 gms to 91 gms pro (1.0-1.3 gms/kgBW d/t severe hypoalbuminemia). Will continue to monitor pertinent labs and reassess nutrient need prn Labs: Na 146 H, Cl 109 H, BUN 19 H, Cr 1.46 H, Ca 7.6 L, Tot patricia 3.6 H, AST 121 H, ALP 159 H, Tpro 5.0 L, Alb 1.5 L Skin: Brenton scale 13, mod risk, pt's with left arm skin tear and multiple bruises per RN doc. Pls refer to relief salesperson's notes 03/25/19 for further details re: tx plans. GI: Pt had 3x BM 03/23/19 per small parts shaper operator. PES: Altered nutrition related lab values r/t current/chronic medical condition aeb hypokalemia, low renal labs, hyperbilirubinemia, elev. LFTs, hypocalcemia and severe hypoalbuminemia Increased nutrient needs r/t chronic current medical condition aeb severe hypoalbuminemia, <75% consumed meals. Will continue to monitor NPO status, skin status, pertinent labs and weight trend. F/u in 2 to 3 days. Rec.: 1.) Advance gradually to oral diet when medically appropriate. 2.) If Albumin level continues trending down with improved renal labs, consider Prostat 1 pkt BID. 3.) If still NPO, consider to resume EN support with Jevity 1.2 @ 70 ml/hr as medically feasible. 4.) Refer to RD for further nutrition education and weight monitoring upon discharged. 5.) Continue current plan of care.
[2019-03-28] MEDS ORDERED: OMEPRAZOLE 20MG/10ML ORAL SUSP GT ONE (13:15)
--- NOTE | 2019-03-28 13:18 | NUR ---
GI AT BEDSIDE DR. BLEVINS UPDATED ON PLAN OF CARE. AWARE OF COLOSTOMY OUTPUT REPORTED WITH NO NG DRAINAGE NOTED. ABD SOFT. NO NEW ORDERS. SEE MD NOTES. Addendum: 03/28/19 at 1339 by Myra Angeles RN PER MD AGUIAR TO START ON KYLIE ANTONY.
--- NOTE | 2019-03-28 13:37 | NUR ---
HOSPITALIST PAGED DR. GEE UPDATED ON PATIENTS STATUS. MD AWARE OF COLOSTOMY OUTPUT REPORT BY NOC SHIFT. MD ALSO MADE AWARE PATIENT HAS REMAINED GROGGY AND NOT APPROPRIATE FOR CPAP TILL THIS POINT. MD STATED HOLD CPAP UNTIL A.M. PT TOLERATING REMAINING OFF SEDATION AT THIS TIME HE IS TOLERATING VENTILATOR WELL. NEW ORDER TO CHANGED PROTONIX ORDER IS IN "BACKORDER" PER RX TO PRILOSEC VIA NG STARTED TOMORROW.
[2019-03-28] MEDS: CLINDAMYCIN 600MG IV 50 ML IV SCH ×2 (13:44→22:00)
[2019-03-28] MEDS ORDERED: PANTOPRAZOLE 40 MG/10 ML VIAL INJ IV ONE (13:45)
--- NOTE | 2019-03-28 13:55 | NUR ---
Respiratory note: PT PLACED ON HEATED CIRCUIT WITHOUT INCIDENT.
[2019-03-28] MEDS ORDERED: CLINDAMYCIN 600 MG/4 ML VL IM SCH (14:00)
[2019-03-28] MEDS: Jevity 1.2 Cal/Fiber 1 Liter GT SCH (14:08)
[2019-03-28] MEDS: THIAMINE 100mg/ml INJ (200mg/2ml VIAL) IV SCH (14:08)
--- NOTE | 2019-03-28 14:14 | NUR ---
TUBE FEEDINGS STARTED PATIENT NOTED TO HAVE STOOL IN COLOSTOMY. NO GASTRIC CONTENTS FROM NG. TUBE FEEDINGS STARTED CPAP IS ON HOLD HE IS NOT WAKING UP APPROPRIATELY. FEEDINGS STARTED AFTER PLACEMENT VERIFICATION VIA AUSCULTATION. FEEDING AT 10ML/HR IN PLACE. ASPIRATION PRECAUTIONS IN PLACE.
--- NOTE | 2019-03-28 14:38 | NUR ---
DRESSING CHANGED 03/28 0400 . CDI. Addendum: 03/28/19 at 1439 by Myra Angeles RN Amended: Links added.
--- NOTE | 2019-03-28 15:39 | NUR ---
FORGEMAN HELPER AT BEDSIDE MD UPDATED ON PATIENTS STATUS. POSSIBLE CPAP IN A.M. IF PATIENT AWAKE. PRN VERSED ORDERED IF PATIENT DOES NOT TOLERATE BEING OFF SEDATION DURING NIGHT. SEE MD NOTES/ ORDERS.
[2019-03-28] MEDS ORDERED: MIDAZOLAM HCL 1MG/1ML-2 ML VIAL IV PRN (17:00)
--- NOTE | 2019-03-28 18:00 | NUR ---
TUBE FEEDINGS TOLERATED NO GASTRIC RESIDUAL. TF INCREASED TO 20ML/HR. ASPIRATION PRECAUTIONS IN PLACE.
[2019-03-28] MEDS: ceFAZolin 1GM/50ML 50 ML IV SCH (18:10)
--- NOTE | 2019-03-28 19:10 | NUR ---
PATIENT TOLERATING VENTILATOR WELL. REMAINS OFF SEDATION. POSSIBLE CPAP IN A.M. REPORT TO BE GIVEN TO NOC NURSE.
[2019-03-29] VITALS (76 sets, daily range): BP systolic 104–170; BP diastolic 55–97
[2019-03-29] MEDS: ALBUTEROL SULF 2.5 MG/0.5ML(0.5%) NEB SOLN NEB SCH ×5 (00:18→23:38)
[2019-03-29] MEDS: IPRATROPIUM BROM 0.5 MG/2.5ML INH SOL NEB SCH ×5 (00:18→23:38)
[2019-03-29] MEDS: DOPamine 1600MCG/ML D5W 250 ML IV SCH (01:36)
[2019-03-29] MEDS: fentaNYL Drip 2500mCg/250mlNS 250 ML IV SCH (03:00)
[2019-03-29] MEDS: MIDAZOLAM DRIP 50 mg/50mL 50 ML IV SCH (03:00)
[2019-03-29 03:58] LABS: Basophils # (auto) 0 uL; Basophils % (auto) 0.8 % (0.0-2.0); Eosinophils # (auto) 0 uL; Eosinophils % (auto) 0.7 % (0.0-7.0); Hematocrit 27.2 % (41.0-53.0); Hemoglobin 9.2 g/dL (13.5-17.5); Lymphocytes # (auto) 0.6 uL; Lymphocytes % (auto) 9.5 % (10.0-50.0); Mean Corpuscular Hemoglobin 33.2 pg (28.0-32.0); Mean Corpuscular Volume 97.5 fL (80.0-100.0); Monocytes # (auto) 0.7 uL; Monocytes % (auto) 12.1 % (0.0-12.0); Neutrophils # (auto) 4.7 uL; Neutrophils % (auto) 76.9 % (37.0-80.0); Nucleated Red Blood Cells % 0.1 %; Platelet Count (auto) 234 10^3/uL (140-450); Red Blood Cells 2.79 10^6/uL (4.5-5.90); Red Cell Distribution Width 16.5 % (11.8-14.3); White Blood Cell 6.1 10^3/uL (4.4-10.8)
[2019-03-29 04:24] LABS: Albumin 1.5 g/dL (3.4-5.0); Calcium 7.3 mg/dL (8.5-10.1); Potassium 3.2 mmol/L (3.5-5.1)
[2019-03-29 04:27] LABS: BUN/Creatinine Ratio 12.9
[2019-03-29 04:28] LABS: Bilirubin, Total 2.3 mg/dL (0.2-1.0)
[2019-03-29] MEDS: ceFAZolin 1GM/50ML 50 ML IV SCH ×5 (06:00→23:35)
[2019-03-29] MEDS: CLINDAMYCIN 600MG IV 50 ML IV SCH ×3 (06:00→23:14)
--- NOTE | 2019-03-29 06:50 | NUR ---
RT AT BEDSIDE TO START CPAP TRIAL; WILL CONT. TO MONITOR.
--- NOTE | 2019-03-29 07:00 | NUR ---
OPEN SHIFT RECEIVED REPORT FROM KATJA SERRA RN. PATIENT ON CPAP TRIAL AT THIS MOMENT. PATIENT FOLLOWING COMMANDS. NAKLU RT AT BEDSIDE. DUARTE IN PLACE FREE OF KINKS DRAINING TO GRAVITY HANGING BELOW BLADDER. HOB AT 45 DEGREES. BED LOCKED W/ 2X BED RAILS UP. SEE PX ASSESSMENT FOR MORE INFORMATION.
[2019-03-29] MEDS: SODIUM CHLORIDE 0.9% 1,000 ML IV SCH ×2 (07:49→16:20)
--- NOTE | 2019-03-29 08:00 | NUR ---
Dr. Powell at bedside: Updated Dr. Powell on patients status. Awake, lethargy-w/moments of confusion. Patient knows name and place.
--- NOTE | 2019-03-29 08:15 | NUR ---
CALLED MD KELLEY RECEIVED OKAY TO EXTUBATE.
[2019-03-29] MEDS ORDERED: POTASSIUM CHL 20MEQ/100ML 100 ML IV ONE (08:45)
--- NOTE | 2019-03-29 09:00 | NUR ---
MD Magalys GEE AT [facility]. UPDATING ON PLAN OF CARE FOR PATIENT. INFORMED ABOUT EXTUBATION AND OKAY WITH IT. NEW ORDERS RECEIVED.
--- NOTE | 2019-03-29 09:05 | NUR ---
EXTUBATION PT EXTUBATED. IN NO SIGNS OF DISTRESS AT THIS MOMENT. ON COOL MIST FACE MASK. NO STRIDER. PATIENT SITTING AT 80 DEGREES. SUCTION AT BEDSIDE.
[2019-03-29] MEDS: METOCLOPRAMIDE HCL 5MG/ml INJ 2ml VIAL IV SCH ×2 (09:45→23:14)
[2019-03-29] MEDS: THIAMINE 100mg/ml INJ (200mg/2ml VIAL) IV SCH (09:45)
[2019-03-29] MEDS: ACETAMINOPHEN 650 mg PER 20 mL UD PO PRN (09:45)
[2019-03-29] MEDS: FOLIC ACID 1 MG in D5W 5% 50 ML IV SCH (09:46)
[2019-03-29] MEDS: OMEPRAZOLE 20MG/10ML ORAL SUSP NG SCH (09:46)
[2019-03-29] MEDS: SODIUM CHLOR 0.9% PF (SALINE LOCK) 10ML VIAL/SYR IV SCH ×2 (09:46→23:14)
[2019-03-29] MEDS: NOREPINEPHRINE 8 MG/250ML KIT 250 ML IV SCH (10:38)
--- NOTE | 2019-03-29 17:56 | NUR ---
CUSTOMS INVESTIGATOR MAGDALENO CONTACTED PATIENT BLOOD PRESSURE 170/66 HR 78. CUSTOMS INVESTIGATOR MAGDALENO UPDATED ON THIS. NEW ORDERS RECEIVED.
[2019-03-29] MEDS ORDERED: hydrALAZINE HCL 20 MG/ML VL ONE (17:58)
[2019-03-29] MEDS ORDERED: hydrALAZINE HCL 20 MG/ML VL IV PRN (18:00)
--- NOTE | 2019-03-29 19:18 | NUR ---
ENDORSED CARE TO TERRI HIGHTOWER.
--- NOTE | 2019-03-29 20:45 | NUR ---
Received Pt from ICU 109, assumed care of patient, Pt lying on bed with eyes closed, arousal by voice, able to answer with slowly/ very softly voice, followed command, asked for easy need. Breathing even and nonlabored, on O2NC 2LPM, No S/S of distress/SOB or pain, occasional cough. NG to right nare in place, positive placement, clamped, will resume TF when ready. PICC line at right upper arm infusing NS, CDI site. Valdez's catheter hung to gravity with clear light barbie urine. Bed in low position, call light within reach, all alarms are audible, fall and safety precaution in place. SCD to both legs. Instructed on POC and to call for assist PRN, will continue to monitor for changes Q1hr and PRN.
--- NOTE | 2019-03-29 20:45 | NUR ---
PT. OFF UNIT TO PEGGY [id number].; REPORT GIVEN TO TERRI TAO.
[2019-03-29] MEDS: POTASSIUM CHL 20MEQ/100ML 100 ML IV SCH ×2 (21:03→23:14)
[2019-03-29] MEDS: Jevity 1.2 Cal/Fiber 1 Liter GT SCH (23:35)
[2019-03-30] VITALS (7 sets, daily range): BP systolic 142–152; BP diastolic 65–85
--- NOTE | 2019-03-30 00:30 | NUR ---
Condition update/ resume TF Pt's condition stable, no sleeping, asked for water, will do mouth care for moisture, pending swallowing eval. SBP slightly high 150's, other v/s stable. Occasionally cough, thick creamy sputum from oropharyngeal suction. NG in place, no residual, started TF at 20ml/hr, and will monitor residual, aspiration precaution in place. Continue care.
[2019-03-30] MEDS: SODIUM CHLORIDE 0.9% 1,000 ML IV SCH ×2 (01:28→18:00)
--- NOTE | 2019-03-30 04:30 | NUR ---
Patient bathe/linen change Patient given complete bath with CHG wipes. Valdez's cath care done, Valdez's slip box changer attached to thigh to secure. Skin integrity assessed for any changes. Optifoam at sacrum had minimal drainage, sacrum checked, found circular open wound, will endorsed care to d/s and change Optifoam. Complete linens changed. Mouth care done. Patient repositioned to prevent pressure ulcer.
[2019-03-30] MEDS: ceFAZolin 1GM/50ML 50 ML IV SCH ×4 (06:07→23:57)
[2019-03-30] MEDS: CLINDAMYCIN 600MG IV 50 ML IV SCH ×3 (06:07→22:01)
[2019-03-30] MEDS: ALBUTEROL SULF 2.5 MG/0.5ML(0.5%) NEB SOLN NEB SCH ×4 (06:47→23:30)
[2019-03-30] MEDS: IPRATROPIUM BROM 0.5 MG/2.5ML INH SOL NEB SCH ×4 (06:47→23:30)
--- NOTE | 2019-03-30 08:00 | NUR ---
Opening Shift Note Assumed care of patient, patient sleeping, woke up by touching and calling his name, patient able to tell me his name and he made aware that he is in the hospital, able to follow direction when testing his arms and legs power, no restless or agitation noted. No S/S of distress/SOB or pain. Instructed on POC and to call for assist PRN, will continue to monitor for changes Q1hr and PRN. Patient sitting up, has feeding running at 30 ml/hr.
--- NOTE | 2019-03-30 09:15 | NUR ---
Mouth care provided, Speech therapist at the bedside, patient sitting up around 90 degree, will continue to monitor and care.
--- NOTE | 2019-03-30 09:26 | NUR ---
SWALLOW EVALUATED. PATIENT ALOC BUT ABLE TO TOLERATE PUREE TEXTURE WITH THIN LIQUIDS WITH NO OVERT SIGNS OR SYMPTOMS OF ASPIRATION. PATIENT HAD DIFFICULTY WITH STRAW. NURSING NOTIFIED.
[2019-03-30] MEDS: METOCLOPRAMIDE HCL 5MG/ml INJ 2ml VIAL IV SCH ×2 (09:57→22:01)
[2019-03-30] MEDS: THIAMINE 100mg/ml INJ (200mg/2ml VIAL) IV SCH (09:57)
[2019-03-30] MEDS: METOPROLOL SUCCINATE XL 50 MG TAB PO SCH (09:58)
[2019-03-30] MEDS: SODIUM CHLOR 0.9% PF (SALINE LOCK) 10ML VIAL/SYR IV SCH ×2 (09:59→22:01)
--- NOTE | 2019-03-30 10:00 | NUR ---
No NG content noted, medication given, increased tube feeding to 40 ml/hr at this time.
[2019-03-30] MEDS: FOLIC ACID 1 MG in D5W 5% 50 ML IV SCH (10:06)
[2019-03-30] MEDS: OMEPRAZOLE 20MG/10ML ORAL SUSP NG SCH (10:06)
--- NOTE | 2019-03-30 10:10 | NUR ---
Dr. Law at the bedside, seen and examined patient, will continue plan of care and monitor.
--- NOTE | 2019-03-30 12:23 | NUR ---
Nutrition Follow-up Notes Wt.: 74.6 kg Pt's successfully extubated 03/29 sleeping with no family by beside. Pt's currently NPO with EN feeds with Jevity 1.2 @ 40 ml.hr providing 1152 kcals and kcal and 52 gm proteins. noted pt active ST eval Est. Needs: 1950 kcal to 2350 kcal (25-30 kcal/kgBW), 78 gms to 91 gms pro (1.0-1.3 gms/kgBW d/t severe hypoalbuminemia). Will continue to monitor pertinent labs and reassess nutrient need prn Labs: BUN 19 H, CREAT 1.47 H, CA 7.3 L, TRENT 2.3 H, ALB 1.5 L. Skin: Brenton scale 12, high risk, pt's with left arm skin tear and multiple bruises per RN doc. Pls refer to credit manager's notes for further details re: tx plans. GI: Pt had 160 ml BM today per route sales trainee. PES: Altered nutrition related lab values r/t current/chronic medical condition aeb hypokalemia, low renal labs, hyperbilirubinemia, elev. LFTs, hypocalcemia and severe hypoalbuminemia Increased nutrient needs r/t chronic current medical condition aeb severe hypoalbuminemia, <75% consumed meals. Will continue to monitor NPO status, EN tolerance, skin status, pertinent labs and weight trend. F/u in 2 to 3 days. Rec.: 1.) Advance gradually to oral diet when medically appropriate per ST eval. 2.) If Albumin level continues trending down with improved renal labs, consider Prostat 1 pkt BID. 3.) Advance EN support with Jevity 1.2 @ 70 ml/hr if pt continues to be NPO. 4.) Refer to RD for further nutrition education and weight monitoring upon discharged. 5.) Continue current plan of care.
--- NOTE | 2019-03-30 13:55 | NUR ---
Position changed, patient sitting up on the bed for eating, max assist, mouth care provided, but patient still sleepy, will hold feeding him by mouth at this time, will continue Jevity via NG tube at this time.
--- NOTE | 2019-03-30 14:00 | NUR ---
PT at the bedside. Patient sitting at the edge of the bed with PT.
--- NOTE | 2019-03-30 15:09 | NUR ---
Patient awake, sitting up on the bed, still has coughing, pharyngeal suctioning provided, try to feed him but he couldn't keep himself sitting up with the head stretch, coughing a little, will hold feeding per mouth at this time.
--- NOTE | 2019-03-30 18:01 | NUR ---
Position changed, mouth care provided, offer feeding pureed food at this time too but patient refused at this time. Patient follow direction but mostly seems sleepy. No NG content noted, increased Jevity to 50 ml/hr at this time, will continue to monitor and care. Colostomy content around 400 ml with brown color, liquid with small solid.
--- NOTE | 2019-03-30 20:00 | NUR ---
Tube feeding NG tube in place, positive placement, residual checked, no residual noted. Increased Jevity to goal rate from 50ml/hr to 60ml/hr, continue to monitor.
--- NOTE | 2019-03-30 20:00 | NUR ---
Opening Shift Note Assumed care of patient, lying on bed with eyes closed, easy arousal by voice, followed simple command, A&O to self, spoke very soft low voice. Breathing on O2NC 1LPM, even and nonlabored, No S/S of distress/SOB or pain. NG to left nare, continuously feeding with Jevity at 50ml/hr. PICC line at right upper arm, CDI site, flushed well, due to d/s tomorrow. SCD on both legs. Bed in low position, aspiration/ fall and safety precaution in place, all alarms are audible. [facility] at [facility], will continue to monitor for changes Q1hr and PRN. Addendum: 03/30/19 at 2315 by Javier Mao RN Neck muscle weak, Pt leans/turns his face to right side most of the time, off load and support right side of the head with rolled wash clothes to prevent pressure ulcer at the ear lobe.
--- NOTE | 2019-03-30 20:35 | NUR ---
Dr Powell at bedside.
--- NOTE | 2019-03-30 21:50 | NUR ---
Condition update/ wound d/s Pt sleeping on bed, arousal by voice, answered with soft low voice, v/s stable. Abrasion wound with scabs at posterior right FA near elbow area cleaned with CHG stick, covered with Optifoam gentle, no drainage. NG position checked, a secure tape changed. Valdez's catheter loom changer changed due to peeling off. Re-positioned Pt. Sacrum wound covered with Optifoam intact, minimum drainage noted, will change Optifoam in am after bed bath. Z-guard applied. Colostomy emptied, brown yellowish loose stool 160ml drained with air. Continue care.
[2019-03-31] VITALS (7 sets, daily range): BP systolic 136–174; BP diastolic 50–93
[2019-03-31] MEDS: Jevity 1.2 Cal/Fiber 1 Liter GT SCH (03:57)
--- NOTE | 2019-03-31 04:30 | NUR ---
Patient bathe/linen change PICC line D/S done. Skin tear at left arm d/s and changed Optifoam done, pictures taken. Patient given complete bath with CHG wipes. Skin integrity assessed for any changes. Linens changed. Patient repositioned to prevent pressure ulcer.
[2019-03-31] MEDS: CLINDAMYCIN 600MG IV 50 ML IV SCH ×3 (06:22→22:29)
[2019-03-31] MEDS: ceFAZolin 1GM/50ML 50 ML IV SCH ×3 (06:22→18:33)
[2019-03-31 06:33] LABS: Basophils # (auto) 0 uL; Basophils % (auto) 0.5 % (0.0-2.0); Eosinophils # (auto) 0.1 uL; Eosinophils % (auto) 0.9 % (0.0-7.0); Hematocrit 27.5 % (41.0-53.0); Hemoglobin 9.2 g/dL (13.5-17.5); Lymphocytes # (auto) 0.5 uL; Lymphocytes % (auto) 5.4 % (10.0-50.0); Mean Corpuscular Hemoglobin 33.2 pg (28.0-32.0); Mean Corpuscular Hgb Conc. 33.6 g/dL (32.0-36.0); Mean Corpuscular Volume 98.8 fL (80.0-100.0); Monocytes # (auto) 0.6 uL; Neutrophils # (auto) 7.8 uL; Neutrophils % (auto) 86.2 % (37.0-80.0); Platelet Count (auto) 257 10^3/uL (140-450); Red Blood Cells 2.78 10^6/uL (4.5-5.90); Red Cell Distribution Width 16.3 % (11.8-14.3)
[2019-03-31 06:37] LABS: Albumin 1.6 g/dL (3.4-5.0); Calcium 7.4 mg/dL (8.5-10.1); Potassium 3.7 mmol/L (3.5-5.1)
[2019-03-31 06:41] LABS: BUN/Creatinine Ratio 13.5; Total Protein 5.3 g/dL (6.4-8.2)
[2019-03-31] MEDS: ALBUTEROL SULF 2.5 MG/0.5ML(0.5%) NEB SOLN NEB SCH ×3 (06:49→19:42)
[2019-03-31] MEDS: IPRATROPIUM BROM 0.5 MG/2.5ML INH SOL NEB SCH ×3 (06:49→19:42)
--- NOTE | 2019-03-31 08:15 | NUR ---
Opening Shift Note Assumed care of patient, laying in bed with eyes closed, arousable to voice, follows simple commands. No S/S of distress/SOB or pain. Patient on 1 LPM oxygen via nasal cannula, saturation 99%. Patient on Pureed diet but not awake enough to eat at this time. Jevity running at 60ml/hr via LT nare NGT, patient tolerating well, no residuals noted. Placement verified. LT lower abdomen colostomy draining brown, liquid stool. Bed locked on lowest position, side rails up x2, bed alarms on at all times, call christine within reach, instructed on POC and to call for assist PRN, will continue to monitor for changes Q1hr and PRN.
--- NOTE | 2019-03-31 10:22 | NUR ---
Dr Law at bedside, updated on patient's status. Informed of sodium level 149 and MRSA in the sputum. Informed patient not waking up enough to eat. Patient seen and examined. Received verbal order for free water every six hours. Orders read back and verified. Will carry out.
[2019-03-31] MEDS: SODIUM CHLORIDE 0.9% 1,000 ML IV SCH (10:47)
[2019-03-31] MEDS: METOCLOPRAMIDE HCL 5MG/ml INJ 2ml VIAL IV SCH ×2 (10:47→22:29)
[2019-03-31] MEDS: THIAMINE 100mg/ml INJ (200mg/2ml VIAL) IV SCH (10:47)
[2019-03-31] MEDS: FOLIC ACID 1 MG in D5W 5% 50 ML IV SCH (10:47)
[2019-03-31] MEDS: OMEPRAZOLE 20MG/10ML ORAL SUSP NG SCH (10:48)
[2019-03-31] MEDS: SODIUM CHLOR 0.9% PF (SALINE LOCK) 10ML VIAL/SYR IV SCH ×2 (10:48→22:30)
[2019-03-31] MEDS: METOPROLOL SUCCINATE XL 50 MG TAB PO SCH (10:49)
--- NOTE | 2019-03-31 12:19 | NUR ---
Nutrition Consult and Follow-up Notes Wt.: 77.4 kg as of yesterday. Pt's in isolation room, on oxgen via nasal cannula, no immediate family member at beside during rounds this morning. Pt's currently on Purred diet, no record of food intake yet at this time r/t pt's not awake enough to eat. Pt's EN support of Jevity 1.2 @ 60 ml/hr providing 1728 kcal, 80 gms proteins and 1162 ml free water, tolerates feeding, no residuals noted by RN this morning. Pt with fair EN support d/t mod initiation rate delivery of concentrated formula aeb current EN infusion meets 74% to 89% of est caloric needs and 88% to 102% of est protein needs. Est. Needs: 1950 kcal to 2350 kcal (25-30 kcal/kgBW), 78 gms to 91 gms pro (1.0-1.3 gms/kgBW d/t severe hypoalbuminemia). Will continue to monitor pertinent labs and reassess nutrient need prn Labs: Na 149 H, Cl 117 H, Cr 1.33 H, Ca 8.1 L Tot patricia 2.0 H, AST 118 H, ALP 161 H, Tpro 5.3 L Alb 1.6 L. Skin: Brenton scale 12, high risk, pt's with left arm skin tear and multiple bruises per RN doc. Pls refer to peace officer's notes (03/25/19) for further details re: tx plans. GI: Pt had 340 ml BM via colostomy this morning per bindery production manager. PES: Altered nutrition related lab values r/t current/chronic medical condition aeb hypokalemia, low renal labs, hyperbilirubinemia, elev. LFTs, hypocalcemia and severe hypoalbuminemia Increased nutrient needs r/t chronic current medical condition aeb severe hypoalbuminemia, <75% consumed meals. Will continue to monitor PO intake, EN tolerance, skin status, pertinent labs and weight trend. F/u in 2 to 3 days. Rec.: 1.) Continue close supervision and feeding assistance prn during meals. 2.) If pt unable to tolerate oral diet, continue on EN support of Jevity 1.2 @ 70 ml/hr goal rate as tolerated. 3.) If Albumin level continues trending down with improved renal labs, consider Prostat 1 pkt BID. 4.) Consider daily MVI with minerals and Asc acid 500 mgs BID prn. 5.) Refer to RD for further nutrition education and weight monitoring upon discharged. 6.) Continue current plan of care. Thank you for this consult.
[2019-03-31] MEDS: FREE WATER NG SCH ×2 (13:15→18:34)
--- NOTE | 2019-03-31 14:00 | NUR ---
WOUND CARE NOTE: Wound care consult received from nursing. Patient has previously been on wound care rounding due to low Brenton score. Patient now with open area to right sacrum measuring 2x2cm, and skin tears to bilateral forearms. Reviewed photos taken by nursing with bedside RN, Kamialh. RECOMMENDATIONS: Nursing to cleanse sacrum with wound cleanser, pat dry, apply ZGUARD and cover with OPTIFOAM GENTLE, change every other day/PRN soiling; Nursing to cleanse skin tears with wound cleanser, pat dry apply THERAHONEY GEL and cover with OPTIFOAM GENTLE dressings, change every other day; specialty bed to be ordered; wound care team to continue to follow. Addendum: 03/31/19 at 1846 by LORRAINE GABRIEL RN Amended: Links added.
--- NOTE | 2019-03-31 20:00 | NUR ---
Opening Shift Note Assumed care of patient, awake and alert and oriented x2, speech is somewhat incomprehensible, able to follow commands and track. No S/S of distress/SOB or pain. Jevity feedings at 60ml/hr . Left nare NGT auscultated for placement, residual checked zero noted. Aspiration and fall precautions in place. Instructed on POC and to call for assist PRN, will continue to monitor for changes frequently.
--- NOTE | 2019-03-31 20:20 | NUR ---
DR. IVEY AT BEDSIDE.
[2019-04-01] VITALS (7 sets, daily range): BP systolic 129–158; BP diastolic 70–90
[2019-04-01] MEDS: FREE WATER NG SCH ×3 (01:21→12:00)
[2019-04-01] MEDS: ceFAZolin 1GM/50ML 50 ML IV SCH ×4 (01:21→17:11)
[2019-04-01] MEDS: CLINDAMYCIN 600MG IV 50 ML IV SCH ×3 (06:00→21:17)
[2019-04-01] MEDS: SODIUM CHLORIDE 0.9% 1,000 ML IV SCH (06:00)
[2019-04-01] MEDS: ALBUTEROL SULF 2.5 MG/0.5ML(0.5%) NEB SOLN NEB SCH ×3 (06:22→18:26)
[2019-04-01] MEDS: IPRATROPIUM BROM 0.5 MG/2.5ML INH SOL NEB SCH ×3 (06:22→18:26)
--- NOTE | 2019-04-01 06:26 | NUR ---
[facility] COMPLETE BED BATH PROVIDED USING CHG WIPES AND WARM WASH CLOTHS. SKIN INTEGRITY REASSESSED: LARGE ECCHYMOSIS NOTED TO LEFT MID BACK. DRESSING CHANGED TO LEFT FA AND RIGHT FA SKIN TEARS PER ORDERS. RIGHT FA SKIN TEAR MOSTLY HEALED WITH SCABBING.SACRUM DTI COVERED WITH OPTIFOAM. ECCHYMOSIS ON ANTERIOR CHEST AND THROUGHOUT PATIENT'S BODY. NEW GOWN PLACED ON PATIENT, PARTIAL LINEN CHANGE DONE.PATIENT TRANSFERRED TO [facility] WITHOUT INCIDENT. REPOSITIONED FOR COMFORT. CONTINUE TO MONITOR.
[2019-04-01 07:04] LABS: Basophils # (auto) 0 uL; Basophils % (auto) 0.4 % (0.0-2.0); Eosinophils # (auto) 0.1 uL; Eosinophils % (auto) 0.7 % (0.0-7.0); Hematocrit 28.5 % (41.0-53.0); Hemoglobin 9.5 g/dL (13.5-17.5); Lymphocytes # (auto) 0.6 uL; Lymphocytes % (auto) 5.5 % (10.0-50.0); Mean Corpuscular Hemoglobin 32.8 pg (28.0-32.0); Mean Corpuscular Hgb Conc. 33.2 g/dL (32.0-36.0); Mean Corpuscular Volume 98.6 fL (80.0-100.0); Monocytes # (auto) 0.7 uL; Monocytes % (auto) 5.9 % (0.0-12.0); Neutrophils # (auto) 10.2 uL; Neutrophils % (auto) 87.5 % (37.0-80.0); Platelet Count (auto) 277 10^3/uL (140-450); Red Blood Cells 2.89 10^6/uL (4.5-5.90); Red Cell Distribution Width 16.3 % (11.8-14.3); White Blood Cell 11.6 10^3/uL (4.4-10.8)
[2019-04-01 07:22] LABS: Albumin 1.7 g/dL (3.4-5.0); BUN/Creatinine Ratio 17.1; Calcium 7.4 mg/dL (8.5-10.1); Potassium 4.1 mmol/L (3.5-5.1)
[2019-04-01 07:25] LABS: Total Protein 5.4 g/dL (6.4-8.2)
--- NOTE | 2019-04-01 07:45 | NUR ---
Opening Shift Note Assumed care of patient, awake and oriented x2, re-oriented to time and situation. No S/S of distress/SOB or pain. Patient on 2LPM oxygen via nasal cannula, saturation 100%. Jevity running at 60ml/hr via LT nare NGT, patient tolerating well, no residuals noted. See interventions for complete assessment. Bed locked on lowest position, side rails up x2, bed alarms on at all times, call christine within reach, instructed on POC and to call for assist PRN, will continue to monitor for changes Q1hr and PRN.
--- NOTE | 2019-04-01 08:10 | NUR ---
Dr Law at bedside, updated on patient's status. Patient seen and examined. Received verbal order to discontinue NGT and IV Fluid and to do CT Angio to rule out PE due to D-dimer 1.89. Verbal orders read back and verified. Will carry out orders.
--- NOTE | 2019-04-01 09:30 | NUR ---
Called patient's son Joel Shah via telephone number [phone]. CT Chest explained and son verbalized understanding. Telephone consent for CT chest obtained by this RN with Fransisca MURRAY.
--- NOTE | 2019-04-01 09:44 | NUR ---
Patient's son Joel indicated patient has no allergy to Iodine or sea food.
--- NOTE | 2019-04-01 10:00 | NUR ---
NGT removal NGT removed per MD order following explanation and instruction to patient. Patient tolerated well.
[2019-04-01] MEDS: FOLIC ACID 1 MG in D5W 5% 50 ML IV SCH (10:18)
[2019-04-01] MEDS: METOCLOPRAMIDE HCL 5MG/ml INJ 2ml VIAL IV SCH ×2 (10:18→21:17)
[2019-04-01] MEDS: THIAMINE 100mg/ml INJ (200mg/2ml VIAL) IV SCH (10:18)
[2019-04-01] MEDS: OMEPRAZOLE 20MG/10ML ORAL SUSP NG SCH (10:19)
[2019-04-01] MEDS: SODIUM CHLOR 0.9% PF (SALINE LOCK) 10ML VIAL/SYR IV SCH ×2 (10:19→21:20)
[2019-04-01] MEDS: METOPROLOL SUCCINATE XL 50 MG TAB PO SCH (10:20)
[2019-04-01] MEDS ORDERED: IOHEXOL 350 MG/ML 100ML IJ ONE (13:55)
--- NOTE | 2019-04-01 14:45 | NUR ---
Patient out of room to CT.
--- NOTE | 2019-04-01 15:17 | NUR ---
Patient back to room from CT.
--- NOTE | 2019-04-01 17:11 | NUR ---
CT chest report still pending.
--- NOTE | 2019-04-01 19:10 | NUR ---
CTA report still pending
--- NOTE | 2019-04-01 20:02 | NUR ---
Patient awaiting transfer to Tele floor room 233, gave report to Celia MURRAY.
--- NOTE | 2019-04-01 20:30 | NUR ---
ASSUMED CARE OF PATIENT Assumed care of patient from Shannon MURRAY. Patient is alert and oriented to self and date of , patient was reoriented to place and situation, reinforcement needed. Patient denies pain at this time. No S/S of distress/SOB noted at this time. Instructed on plan of care and to call for assistance as needed, reinforcement needed. Bed is locked in lowest position, side rails x 3 are up, call light is within reach, and bed alarm is on. Will continue patient care and to round on patient hourly and as needed.
[2019-04-02] VITALS (7 sets, daily range): BP systolic 118–158; BP diastolic 64–85
[2019-04-02] MEDS: ceFAZolin 1GM/50ML 50 ML IV SCH ×4 (00:05→18:42)
--- NOTE | 2019-04-02 04:30 | NUR ---
WOUND CARE Patients sacrum was cleaned with wound cleanser and patted dry with clean gauze. Hydragaurd was applied to sacrum as recommended by wound care nurse. Patient was also noted to have skin tears to right forearm and left elbow, skin tears were cleaned with wound cleanser and patted dry with clean gauze, honey thera was applied to skin tears, and optifoam was applied to both right forearm and left elbow. Patient was also noted to have scab to right knee, was cleaned with wound cleanser, patted dry with clean gauze, thera honey was applied, and scab was covered with optifoam.
[2019-04-02] MEDS: CLINDAMYCIN 600MG IV 50 ML IV SCH ×3 (05:49→21:59)
[2019-04-02] MEDS: ALBUTEROL SULF 2.5 MG/0.5ML(0.5%) NEB SOLN NEB SCH ×4 (06:18→17:55)
[2019-04-02] MEDS: IPRATROPIUM BROM 0.5 MG/2.5ML INH SOL NEB SCH ×4 (06:18→17:55)
--- NOTE | 2019-04-02 07:15 | NUR ---
OPENING SHIFT NOTE ASSUMED CARE OF PATIENT FROM ALUM MIXER RN AUGUSTINE. PATIENT IS AWAKE AND ALERT X1 (NAME). REORIENTED PATIENT TO TIME, PLACE AND SITUATION. WILL CONTINUE TO INSTRUCT PATIENT ON POC THROUGH OUT SHIFT. BED IS IN LOWEST POSITION WITH SIDE RAILS RAISED X2, BED WHEELS LOCKED, BED ALARM ON, HOB > 30 DEGREES, DUARTE IS HANGING BELOW BLADDER AND IS DRAINING LIGHT NATALIIA URINE, AND CALL LIGHT IS WITHIN REACH
[2019-04-02 07:23] LABS: Basophils # (auto) 0.1 uL; Basophils % (auto) 0.5 % (0.0-2.0); Eosinophils # (auto) 0.1 uL; Eosinophils % (auto) 0.7 % (0.0-7.0); Hematocrit 27.6 % (41.0-53.0); Hemoglobin 9.2 g/dL (13.5-17.5); Lymphocytes # (auto) 0.8 uL; Lymphocytes % (auto) 7.3 % (10.0-50.0); Mean Corpuscular Hemoglobin 32.9 pg (28.0-32.0); Mean Corpuscular Hgb Conc. 33.5 g/dL (32.0-36.0); Mean Corpuscular Volume 98.3 fL (80.0-100.0); Monocytes # (auto) 0.7 uL; Neutrophils # (auto) 9.5 uL; Neutrophils % (auto) 85.5 % (37.0-80.0); Platelet Count (auto) 286 10^3/uL (140-450); Red Blood Cells 2.81 10^6/uL (4.5-5.90); Red Cell Distribution Width 15.7 % (11.8-14.3); White Blood Cell 11.2 10^3/uL (4.4-10.8)
--- NOTE | 2019-04-02 07:37 | NUR ---
CLOSING SHIFT NOTE Endorsed patient care to Sunni MURRAY.
[2019-04-02 07:42] LABS: Albumin 1.7 g/dL (3.4-5.0); BUN/Creatinine Ratio 20.3; Calcium 7.6 mg/dL (8.5-10.1); Potassium 4.1 mmol/L (3.5-5.1)
[2019-04-02 07:53] LABS: Total Protein 5.4 g/dL (6.4-8.2)
--- NOTE | 2019-04-02 10:12 | NUR ---
MD GEE AT BEDSIDE UPDATED MD ON PATIENT'S STATUS, INCLUDING SODIUM LEVELS AND MICHAEL, PRILOSEC, AND TALIA, MD IS AWARE. PER MD HE WILL PUT IN NEPHRO CONSULT AND DC MICHAEL, JUANSEC AND TALIA. WILL FOLLOW THROUGH WITH ORDERS.
[2019-04-02] MEDS: FOLIC ACID 1 MG in D5W 5% 50 ML IV SCH (11:07)
[2019-04-02] MEDS: SODIUM CHLOR 0.9% PF (SALINE LOCK) 10ML VIAL/SYR IV SCH ×2 (11:07→22:00)
[2019-04-02] MEDS: THIAMINE 100mg/ml INJ (200mg/2ml VIAL) IV SCH (11:07)
[2019-04-02] MEDS: METOCLOPRAMIDE HCL 5MG/ml INJ 2ml VIAL IV SCH ×2 (11:07→21:59)
[2019-04-02] MEDS: METOPROLOL SUCCINATE XL 50 MG TAB PO SCH (11:08)
--- NOTE | 2019-04-02 11:22 | NUR ---
MD BENTON AT BEDSIDE. UPDATED MD ON PATIENT'S STATUS INCLUDING SODIUM LEVELS, MD IS AWARE AND WILL PUT IN ORDERS FOR D5W. WILL FOLLOW THROUGH WITH ORDERS.
--- NOTE | 2019-04-02 12:12 | NUR ---
Pt worked on sitting balance at the edge of the bed. Pt's sitting balance is poor, pt was able to sit up w/ mod/max A x 2 for approx 10min. Pt was left up in bed in supine with call light w/in reach Addendum: 04/02/19 at 1213 by Kiley Fitzpatrick PT Amended: Links added.
--- NOTE | 2019-04-02 13:59 | NUR ---
Nutrition Consult and Follow-up Notes Wt.: 92.1 kg based on bed scale as of yesterday. Noted ?14/7 kg weight gain in last 3 days likely d/t ? fluid retention aeb positive I & Os for past few days. Pt's in isolation room, with PT at beside when rounded this morning. Pt's no signs of distress noted earlier, off from EN support, currently on Pureed 2 gms Na, Low Fat diet with Ensure Enlive 1 cartonm BID, has inadequate PO intake aeb <50% ave. consumed meals (x6) in last 2.5 days. Est. Needs: 1950 kcal to 2350 kcal (25-30 kcal/kgBW), 78 gms to 91 gms pro (1.0-1.3 gms/kgBW d/t severe hypoalbuminemia). Will continue to monitor pertinent labs and reassess nutrient need prn Labs: Na 145 H, Cl 114 H, BUN 24 H, Ca 7.6 L Tot patricia 2.0 H, AST 104 H, ALP 166 H, Tpro 5.4 L Alb 1.7 L. Skin: Brenton scale 11, high risk, pt's medial sacrum pressure ulcer, left arm skin tear and multiple bruises per RN doc. Pls refer to automatic operator's notes this morning for further details re: tx plans. GI: Pt had 350 ml BM via colostomy this morning per heat welder plastics. PES: Altered nutrition related lab values r/t current/chronic medical condition aeb hypokalemia, low renal labs, hyperbilirubinemia, elev. LFTs, hypocalcemia and severe hypoalbuminemia Increased nutrient needs r/t chronic current medical condition aeb severe hypoalbuminemia, <75% consumed meals. Will continue to monitor PO intake, EN tolerance, skin status, pertinent labs and weight trend. F/u in 3 to 5 days. Rec.: 1.) Continue close supervision and feeding assistance prn during meals. 2.) If Albumin level continues trending down with improved renal labs, consider Prostat 1 pkt BID. 3.) Consider daily MVI with minerals and Asc acid 500 mgs BID prn. 4.) Refer to RD for further nutrition education and weight monitoring upon discharged. 5.) Continue current plan of care. Thank you for this consult
[2019-04-02] MEDS: D5W 5% 1,000 ML IV SCH (14:40)
[2019-04-02] MEDS: Ensure Enlive Vanilla 8oz Bottle PO SCH (18:23)
--- NOTE | 2019-04-02 19:02 | NUR ---
CLOSING SHIFT NOTE ENDORSED CARE TO CAFETERIA ASSOCIATE RN AUGUSTINE. PATIENT HAS NO S/S OF DISTRESS/SOB OR PAIN AT THIS TIME.
--- NOTE | 2019-04-02 19:30 | NUR ---
OPENING SHIFT NOTE Assumed care of patient from Sunni MURRAY. Patient is alert and oriented to self and date of , patient was reoriented to place and situation, reinforcement needed. Patient denies pain at this time. No S/S of distress/SOB or pain noted at this time. Instructed on plan of care and to call for assistance as needed, will reinforce education throughout shift. Bed is locked in lowest position, side rails x 3 are up, call light is within reach, and bed alarm is on. Will continue patient care and to round on patient hourly and as needed.
[2019-04-03] MEDS: ceFAZolin 1GM/50ML 50 ML IV SCH ×5 (00:08→23:33)
[2019-04-03] MEDS: ALBUTEROL SULF 2.5 MG/0.5ML(0.5%) NEB SOLN NEB SCH ×4 (00:10→18:54)
[2019-04-03] MEDS: IPRATROPIUM BROM 0.5 MG/2.5ML INH SOL NEB SCH ×4 (00:10→18:54)
--- NOTE | 2019-04-03 02:00 | NUR ---
PATIENT PULLED OUT COLOSTOMY BAG Patient was noted laying in bed with colostomy bag laying in bed. Stoma area was cleaned with clean warm water and patted dry. A new colostomy bag was applied to stoma area. Patients linens were changed and patient was repositioned. Patient is now laying in bed with even and unlabored respirations. No S/S of distress/SOB noted. Bed is locked in lowest position, side rails x 3 are up, call light is within reach, and bed alarm is on.
[2019-04-03 05:00] VITALS: BP 153/82
[2019-04-03] MEDS: CLINDAMYCIN 600MG IV 50 ML IV SCH ×3 (05:58→21:10)
[2019-04-03 06:13] LABS: Basophils # (auto) 0.1 uL; Eosinophils # (auto) 0.1 uL; Eosinophils % (auto) 0.7 % (0.0-7.0); Hematocrit 24.6 % (41.0-53.0); Hemoglobin 8.2 g/dL (13.5-17.5); Lymphocytes # (auto) 0.8 uL; Lymphocytes % (auto) 7.2 % (10.0-50.0); Mean Corpuscular Hemoglobin 32.9 pg (28.0-32.0); Mean Corpuscular Hgb Conc. 33.3 g/dL (32.0-36.0); Mean Corpuscular Volume 98.8 fL (80.0-100.0); Monocytes # (auto) 0.5 uL; Monocytes % (auto) 5.2 % (0.0-12.0); Neutrophils # (auto) 9.1 uL; Neutrophils % (auto) 85.9 % (37.0-80.0); Platelet Count (auto) 275 10^3/uL (140-450); Red Blood Cells 2.49 10^6/uL (4.5-5.90); Red Cell Distribution Width 15.4 % (11.8-14.3); White Blood Cell 10.6 10^3/uL (4.4-10.8)
[2019-04-03 06:16] LABS: Potassium 3.5 mmol/L (3.5-5.1)
[2019-04-03 06:20] LABS: BUN/Creatinine Ratio 17.5; Calcium 6.9 mg/dL (8.5-10.1)
--- NOTE | 2019-04-03 07:30 | NUR ---
OPENING SHIFT NOTE RECEIVED REPORT FROM [facility] NURSE, ASSUMED CARE OF PATIENT. PATIENT IS A&OX4, ABLE TO ANSWER ALL QUESTIONS BUT WITH PERIODS OF CONVERSATION THAT MAKE NO SENSE. PATIENT IS ON A SPECIALTY MATTRESS, BED RAILS UP X 3, CALL LIGHT WITHIN REACH, BED LOW AND LOCKED. PT HAS NO C/O PAIN OR DISTRESS AT THIS TIME, EDUCATED PATIENT PROPERTY INVESTOR LIGHT USE PRN, PATIENT VERBALIZED UNDERSTANDING. PATIENT REPOSITIONED AT THIS TIME. CONTINUING TO MONITOR Q1 HR
--- NOTE | 2019-04-03 07:45 | NUR ---
COLOSTOMY OUTPUT Total colostomy output: 50ml of brown soft stool.
--- NOTE | 2019-04-03 07:48 | NUR ---
CLOSING SHIFT NOTE Endorsed patient care to TERRI Bermudez.
[2019-04-03 09:00] VITALS: BP 146/79
[2019-04-03] MEDS: OMEPRAZOLE 20MG/10ML ORAL SUSP PO SCH (09:30)
[2019-04-03] MEDS: SODIUM CHLOR 0.9% PF (SALINE LOCK) 10ML VIAL/SYR IV SCH ×2 (09:30→22:51)
[2019-04-03] MEDS: METOPROLOL SUCCINATE XL 50 MG TAB PO SCH (09:30)
[2019-04-03] MEDS: THIAMINE 100mg/ml INJ (200mg/2ml VIAL) IV SCH (09:32)
[2019-04-03] MEDS: METOCLOPRAMIDE HCL 5MG/ml INJ 2ml VIAL IV SCH ×2 (09:33→21:10)
[2019-04-03] MEDS: D5W 5% 1,000 ML IV SCH (09:33)
[2019-04-03] MEDS: Ensure Enlive Vanilla 8oz Bottle PO SCH ×2 (09:33→18:35)
--- NOTE | 2019-04-03 10:00 | NUR ---
PT AT BEDSIDE
[2019-04-03] MEDS: FOLIC ACID 1 MG in D5W 5% 50 ML IV SCH (12:54)
[2019-04-03 13:06] VITALS: BP 132/77
--- NOTE | 2019-04-03 15:48 | NUR ---
PERIODS OF CONFUSION PATIENT EXPERIENCES PERIODS OF CONFUSION, STATES AT TIMES HE IS SMOKING, OTHER TIMES HE IS GOING TO WALK OUT SIDE. REDIRECTING PATIENT TO REALITY AND ADVISING PATIENT OF NEED FOR SAFETY. PATIENT VERBALIZED UNDERSTANDING, NEEDS CONTINUOUS REINFORCEMENT
[2019-04-03 16:39] VITALS: BP 127/64
--- NOTE | 2019-04-03 18:37 | NUR ---
COLOSTOMY OUTPUT BAG EMPTIED, 25 ML OF SOFT BROWN STOOL EMPTIED
[2019-04-03 22:16] VITALS: BP 129/75
[2019-04-04] MEDS: ALBUTEROL SULF 2.5 MG/0.5ML(0.5%) NEB SOLN NEB SCH ×4 (00:50→19:08)
[2019-04-04] MEDS: IPRATROPIUM BROM 0.5 MG/2.5ML INH SOL NEB SCH ×4 (00:50→19:08)
--- NOTE | 2019-04-04 05:30 | NUR ---
WOUND CARE Patients sacrum was cleaned with clean soap and water and patted dry. Hydraguard was applied on patients sacrum and an optifoam was placed.
[2019-04-04 05:33] VITALS: BP 141/70
[2019-04-04] MEDS: ceFAZolin 1GM/50ML 50 ML IV SCH ×3 (05:33→18:17)
[2019-04-04] MEDS: D5W 5% 1,000 ML IV SCH (06:52)
[2019-04-04] MEDS: CLINDAMYCIN 600MG IV 50 ML IV SCH ×3 (06:52→22:42)
--- NOTE | 2019-04-04 07:00 | NUR ---
COLOSTOMY OUTPUT Colostomy output: 20ml of soft brown stool.
--- NOTE | 2019-04-04 07:30 | NUR ---
OPENING SHIFT NOTE RECEIVED REPORT FROM [facility] SHIFT NURSE, ASSUMED CARE OF PATIENT. PATIENT IS A&O X2, WITH NO C/O PAIN OR DISTRESS AT THIS TIME. BED IS IN LOW POSITION AND A SPECIALTY MATTRESS IN PLACE, BRAKES ON. BED RAILS UP X3 FOR PATIENT SAFETY AND BED ALARM ON. CALL LIGHT WITHIN REACH. EDUCATED PATIENT ON POC AND CALL LIGHT USE PRN, PATIENT VERBALIZED UNDERSTANDING BUT REINFORCEMENT IS NEEDED. CONTINUING TO MONITOR PATIENT Q1 HR AND PRN
[2019-04-04] MEDS: Ensure Enlive Vanilla 8oz Bottle PO SCH ×2 (08:00→18:00)
--- NOTE | 2019-04-04 08:07 | NUR ---
PATIENT SAFETY PATIENT ATTEMPTING TO GET OUT OF BED STATING "I DON'T WANT THIS PLANE TO GO WITH ME ON IT" EDUCATED PATIENT THAT HE IS IN THE HOSPITAL AND NOT ON A PLANE AND HE NEEDS TO REMAIN IN BED AT THIS TIME FOR HIS SAFETY. PATIENT CONTINUED TO STATE HE WOULD LIKE A DRINK OR A SMOKE. EDUCATED PATIENT ON ENVIRONMENT AND THE NEED FOR HIS SAFETY, WILL CONTINUE TO REINFORCE THIS THROUGHOUT THE DAY
[2019-04-04 09:00] VITALS: BP 128/75
[2019-04-04] MEDS: FOLIC ACID 1 MG in D5W 5% 50 ML IV SCH (10:11)
[2019-04-04] MEDS: SODIUM CHLOR 0.9% PF (SALINE LOCK) 10ML VIAL/SYR IV SCH ×2 (10:11→22:42)
[2019-04-04] MEDS: OMEPRAZOLE 20MG/10ML ORAL SUSP PO SCH (10:12)
[2019-04-04] MEDS: THIAMINE 100mg/ml INJ (200mg/2ml VIAL) IV SCH (10:12)
[2019-04-04] MEDS: METOPROLOL SUCCINATE XL 50 MG TAB PO SCH (10:12)
[2019-04-04] MEDS: METOCLOPRAMIDE HCL 5MG/ml INJ 2ml VIAL IV SCH ×2 (10:12→22:42)
--- NOTE | 2019-04-04 10:39 | NUR ---
re-assessment Per ss consult need to know if Danny worked on his insurance, living situation. Per Danny patients [facility] status is secure. It can take up to 6 weeks to complete. Patient does live alone. Will re-assess today. Addendum: 04/04/19 at 1044 by Marisol Abebe Amended: Links added.
[2019-04-04 10:50] LABS: BUN/Creatinine Ratio 16.3; Calcium 7.3 mg/dL (8.5-10.1); Potassium 3.5 mmol/L (3.5-5.1)
[2019-04-04 13:00] VITALS: BP 140/76
[2019-04-04 17:00] VITALS: BP 133/78
--- NOTE | 2019-04-04 18:00 | NUR ---
COLOSTOMY OUTPUT 450 ML TOTAL OUTPUT OF THICK BROWN STOOL
--- NOTE | 2019-04-04 19:35 | NUR ---
Opening Shift Note Assumed care of patient alert and oriented x2. Changes tone of voice to normal speaking to whispering. No S/S of distress on O2 N/C 1LPM, even and nonlabored. Denies pain. PICC line at right upper arm, C/D/I. SCD on both legs. Bed in low position, aspiration/ fall and safety precaution in place. Will continue to monitor for changes.
--- NOTE | 2019-04-04 21:00 | NUR ---
COLOSTOMY OUTPUT Colostomy output: 60ml of soft brown stool.
[2019-04-04 22:35] VITALS: BP 119/77
[2019-04-05] MEDS: D5W 5% 1,000 ML IV SCH ×2 (00:19→17:27)
[2019-04-05] MEDS: ceFAZolin 1GM/50ML 50 ML IV SCH ×5 (00:19→23:32)
[2019-04-05] MEDS: ALBUTEROL SULF 2.5 MG/0.5ML(0.5%) NEB SOLN NEB SCH ×4 (01:59→19:21)
[2019-04-05] MEDS: IPRATROPIUM BROM 0.5 MG/2.5ML INH SOL NEB SCH ×4 (01:59→19:21)
[2019-04-05 04:38] VITALS: BP 133/84
[2019-04-05] MEDS: CLINDAMYCIN 600MG IV 50 ML IV SCH ×3 (05:24→21:48)
[2019-04-05 06:33] LABS: Potassium 4.1 mmol/L (3.5-5.1)
[2019-04-05 06:40] LABS: BUN/Creatinine Ratio 17.9; Calcium 7.4 mg/dL (8.5-10.1)
--- NOTE | 2019-04-05 06:43 | NUR ---
COLOSTOMY OUTPUT Colostomy output: 20ml of soft brown stool.
--- NOTE | 2019-04-05 07:30 | NUR ---
OPENING SHIFT NOTE RECEIVED REPORT FROM [facility] SHIFT NURSE AND ASSUMED CARE OF PATIENT. PATIENT PRESENTS RESTING WITH EYES CLOSED, NO S/S OF DISTRESS OR PAIN. PATIENT IS ON 1 L O2 NC, DUARTE PRESENT AND PATENT HUNG BELOW BED LINE, RIGHT UPPER PICC PRESENT WITH D5 RUNNING AT 50. BED IS IN LOW POSITION, BRAKES LOCKED AND CALL LIGHT WITHIN REACH. FALL AND ASPIRATION PRECAUTIONS ARE IN PLACE. CONTACT/DROPLET PRECAUTIONS ALSO IN PLACE. WILL CONTINUE TO MONITOR PATIENT Q1 HR AND PRN
[2019-04-05 09:08] VITALS: BP 130/70
[2019-04-05] MEDS: Ensure Enlive Vanilla 8oz Bottle PO SCH ×2 (09:46→19:03)
[2019-04-05] MEDS: FOLIC ACID 1 MG in D5W 5% 50 ML IV SCH (09:55)
[2019-04-05] MEDS: SODIUM CHLOR 0.9% PF (SALINE LOCK) 10ML VIAL/SYR IV SCH ×2 (09:57→21:48)
[2019-04-05] MEDS: METOPROLOL SUCCINATE XL 50 MG TAB PO SCH (09:58)
[2019-04-05] MEDS: METOCLOPRAMIDE HCL 5MG/ml INJ 2ml VIAL IV SCH ×2 (09:58→21:48)
[2019-04-05] MEDS: THIAMINE 100mg/ml INJ (200mg/2ml VIAL) IV SCH (09:58)
[2019-04-05] MEDS: OMEPRAZOLE 20MG/10ML ORAL SUSP PO SCH (09:59)
--- NOTE | 2019-04-05 11:58 | NUR ---
Nutrition Follow-up Notes Wt.: 91.0 kg Pt's in isolation room, sleeping with no family by bedside when rounded this morning. Pt's no signs of distress noted earlier, currently on Pureed 2 gms Na, Low Fat diet with Ensure Enlive 1 carton BID, has adequate PO of 75% x 5 per RN doc Est. Needs: 1950 kcal to 2350 kcal (25-30 kcal/kgBW), 78 gms to 91 gms pro (1.0-1.3 gms/kgBW d/t severe hypoalbuminemia). Will continue to monitor pertinent labs and reassess nutrient need prn Labs: BUN 21 H, CA 7.4 L. Skin: Brenton scale 12, high risk, pt's medial sacrum pressure ulcer, left arm skin tear and multiple bruises per RN doc. Pls refer to motor tester's notes for further details re: tx plans. GI: Pt had 80 ml BM via colostomy this morning per scientific glass blower. PES: Altered nutrition related lab values r/t current/chronic medical condition aeb hypokalemia, low renal labs, hyperbilirubinemia, elev. LFTs, hypocalcemia and severe hypoalbuminemia Increased nutrient needs r/t chronic current medical condition aeb severe hypoalbuminemia, <75% consumed meals. Will continue to monitor PO intake, EN tolerance, skin status, pertinent labs and weight trend. F/u in 3 to 5 days. Rec.: 1.) Continue close supervision and feeding assistance prn during meals. 2.) If Albumin level continues trending down with improved renal labs, consider Prostat 1 pkt BID. 3.) Consider daily MVI with minerals and Asc acid 500 mgs BID prn. 4.) Refer to RD for further nutrition education and weight monitoring upon discharged. 5.) Continue current plan of care.
[2019-04-05 12:34] VITALS: BP 108/65
--- NOTE | 2019-04-05 14:20 | NUR ---
SPOKE TO SS SPOKE TO MARYA Tipton IN REGARDS TO PATIENTS POSSIBLE DC STATUS FOR TOMORROW, ADVISED HER OF PATIENTS INABILITY TO PERFORM ADL'S
[2019-04-05 17:00] VITALS: BP 124/71
--- NOTE | 2019-04-05 18:02 | NUR ---
Assumed Care of Patient Received report from TERRI Bermudez. Assumed care of patient, awake and alert. No S/S of distress/SOB. Patient denies any pain at this time. Bed in lowest and locked position with side rails up x2. Instructed on POC and to call for assist PRN, will continue to monitor for changes Q1hr and PRN.
[2019-04-05 21:42] VITALS: BP 129/93
[2019-04-05] MEDS: ACETAMINOPHEN 650 mg PER 20 mL UD PO PRN (22:01)
[2019-04-06] MEDS: ALBUTEROL SULF 2.5 MG/0.5ML(0.5%) NEB SOLN NEB SCH ×4 (02:08→18:00)
[2019-04-06] MEDS: IPRATROPIUM BROM 0.5 MG/2.5ML INH SOL NEB SCH ×4 (02:08→18:00)
[2019-04-06 03:01] VITALS: BP 129/73
[2019-04-06 04:54] VITALS: BP 141/80
[2019-04-06] MEDS: CLINDAMYCIN 600MG IV 50 ML IV SCH ×3 (05:37→22:28)
--- NOTE | 2019-04-06 07:20 | NUR ---
Opening Shift Note Assumed care of patient, awake and alert. No S/S of distress OR SOB. Pt denies any pain at this time. Bed in lowest and locked position with side rails up x2 and call light within reach. Pt Instructed on POC and to call for assist PRN, will continue to monitor for changes Q1hr and PRN.
[2019-04-06 09:00] VITALS: BP 133/78
[2019-04-06] MEDS: D5W 5% 1,000 ML IV SCH (09:30)
[2019-04-06] MEDS: Ensure Enlive Vanilla 8oz Bottle PO SCH ×2 (09:30→17:45)
--- NOTE | 2019-04-06 10:00 | NUR ---
DR. GEE AT BEDSIDE DISCUSSING POC WITH PT.
--- NOTE | 2019-04-06 10:10 | NUR ---
PAGED S/S IN REGARDS TO THE PT DISCHARGE PLACEMENT STATUS. AWAITING CALL BACK.
[2019-04-06] MEDS: THIAMINE 100mg/ml INJ (200mg/2ml VIAL) IV SCH (10:25)
[2019-04-06] MEDS: METOCLOPRAMIDE HCL 5MG/ml INJ 2ml VIAL IV SCH ×2 (10:26→22:29)
[2019-04-06] MEDS: FOLIC ACID 1 MG in D5W 5% 50 ML IV SCH (10:26)
[2019-04-06] MEDS: METOPROLOL SUCCINATE XL 50 MG TAB PO SCH (10:27)
[2019-04-06] MEDS: OMEPRAZOLE 20MG/10ML ORAL SUSP PO SCH (10:28)
[2019-04-06] MEDS: ACETAMINOPHEN 650 mg PER 20 mL UD PO PRN (10:29)
[2019-04-06] MEDS: SODIUM CHLOR 0.9% PF (SALINE LOCK) 10ML VIAL/SYR IV SCH ×2 (10:30→22:29)
--- NOTE | 2019-04-06 11:00 | NUR ---
SPOKE TO MARYA DOUGHERTY. MARYA STATED THAT SHE WILL ASSESS THE PATIENTS HOME LIVING STATUS FOR DISCHARGE.
[2019-04-06 13:00] VITALS: BP 111/68
[2019-04-06] MEDS: ceFAZolin 1GM/50ML 50 ML IV SCH ×2 (13:10→17:45)
[2019-04-06 17:00] VITALS: BP 133/80
--- NOTE | 2019-04-06 19:25 | NUR ---
Opening Shift Note Assumed care of patient, awake and alert. No S/S of distress/SOB or pain. Triple lumen PICC line in right upper arm is intact and patent. All lumens flushed with 10ml NS. Valdez catheter is in place, collection bag is below the level of the bladder and draining light barbie urine to gravity. Instructed on POC and to call for assistance PRN, will continue to monitor for changes Q1hr and PRN.
[2019-04-06 22:00] VITALS: BP 134/72
[2019-04-07] MEDS: ALBUTEROL SULF 2.5 MG/0.5ML(0.5%) NEB SOLN NEB SCH ×4 (00:08→18:31)
[2019-04-07] MEDS: IPRATROPIUM BROM 0.5 MG/2.5ML INH SOL NEB SCH ×4 (00:08→18:31)
--- NOTE | 2019-04-07 00:30 | NUR ---
COLOSTOMY OUTPUT Colostomy bag emptied. 60ml of soft brown stool removed. Patient tolerated well.
[2019-04-07] MEDS: ceFAZolin 1GM/50ML 50 ML IV SCH ×5 (03:02→23:54)
--- NOTE | 2019-04-07 03:30 | NUR ---
PICC LINE DRESSING CHANGED Patient position and mask applied. PICC line dressing removed. Skin tears noted under dressing with minimal serous drainage. Catheter measured and is 10cm. bio patch removed. Minor serous drainage noted. Insertion site, surrounding tissue and lumens cleansed. stat-lock removed. New stat-lock applied and new bio patch applied. sterile gauze placed over skin tear prior to application of transparent dressing. No s/s of infection noted. Patient tolerated well.
--- NOTE | 2019-04-07 03:55 | NUR ---
WOUND CARE dressing to sacrum removed. Wound bed is beefy red with minimal serous drainage. Edges are pink and blanchable. Wound cleansed with wound cleanser and pat dry. Barrier cream applied and Optifoam dressing placed. Patient tolerated well. Positioned on left side. Bed returned to lowest locked position. Will continue to monitor PRN.
[2019-04-07 05:00] VITALS: BP 142/84
[2019-04-07] MEDS: CLINDAMYCIN 600MG IV 50 ML IV SCH ×4 (06:00→22:04)
[2019-04-07] MEDS: D5W 5% 1,000 ML IV SCH (07:15)
--- NOTE | 2019-04-07 07:50 | NUR ---
Opening Shift Note Assumed care of patient, awake and alert, confused and hallucinating. No S/S of distress/SOB or pain. Instructed on POC and to call for assist PRN, will continue to monitor for changes Q1hr and PRN.
[2019-04-07 08:26] VITALS: BP 137/80
--- NOTE | 2019-04-07 09:00 | NUR ---
Dr. Law at bedside.
--- NOTE | 2019-04-07 09:10 | NUR ---
Spoke to Damon PT regarding patient's mobility. Damon states that patient is maximum assist and is unable to stand or walk. Dr. Law informed. Dr. Law told Damon to do what they can for the patient.
[2019-04-07] MEDS: Ensure Enlive Vanilla 8oz Bottle PO SCH ×2 (09:18→19:07)
--- NOTE | 2019-04-07 09:22 | NUR ---
Incentive spirometer Patient instructed regarding incentive spirometer use.
[2019-04-07] MEDS: THIAMINE 100mg/ml INJ (200mg/2ml VIAL) IV SCH (10:38)
[2019-04-07] MEDS: METOPROLOL SUCCINATE XL 50 MG TAB PO SCH (10:38)
[2019-04-07] MEDS: METOCLOPRAMIDE HCL 5MG/ml INJ 2ml VIAL IV SCH ×2 (10:38→22:04)
[2019-04-07] MEDS: SODIUM CHLOR 0.9% PF (SALINE LOCK) 10ML VIAL/SYR IV SCH ×2 (10:39→22:04)
[2019-04-07] MEDS: OMEPRAZOLE 20MG/10ML ORAL SUSP PO SCH (10:39)
[2019-04-07] MEDS: FOLIC ACID 1 MG in D5W 5% 50 ML IV SCH (10:39)
--- NOTE | 2019-04-07 11:04 | NUR ---
PT Patient was unarousable during morning PT visit. Addendum: 04/07/19 at 1105 by BRANDY WALLER PTT Amended: Links added.
--- NOTE | 2019-04-07 11:38 | NUR ---
assessment Patient is more alert today. Patient is very weak and unable to care for himself. Patient informed me he will try to contact his brother Lakhwinder to see if he can discharge with him until he gets stronger. Patient cannot find his phone at this time to provided me with Lakhwinder's phone number. Patient stated he has [employer] insurance. I informed Tamiko in admissions and she informed me his [employer] terminated on February 18. I will continue to try and find patients brother Lakhwinder for discharge planning. Addendum: 04/07/19 at 1142 by Marisol CASILLAS Amended: Links added.
--- NOTE | 2019-04-07 11:42 | NUR ---
re-assessment Per consult home health for PT. Patient has no payer source, patient is uninsured. Patient has no money to pay matias for Home Health. Addendum: 04/07/19 at 1144 by Marisol Abebe Amended: Links added.
[2019-04-07 11:53] VITALS: BP 144/78
[2019-04-07 16:46] VITALS: BP 128/77
--- NOTE | 2019-04-07 19:07 | NUR ---
Closing note Patient resting in bed, no signs of distress noted. Side rails up x2. Call light within reach. Bed at lowest position.
--- NOTE | 2019-04-07 19:40 | NUR ---
OPENING SHIFT NOTE Assumed care of patient, awake and alert. No S/S of distress/SOB or pain. Triple lumen PICC line in right upper arm is intact and patent. All lumens flushed with 10ml NS. Valdez catheter is in place, collection bag is below the level of the bladder and draining light barbie urine to gravity. 70ml of soft brown stool removed from colostomy bag. Patient tolerated well. Instructed on POC and to call for assistance PRN, will continue to monitor for changes Q1hr and PRN.
[2019-04-07 22:00] VITALS: BP 143/79
[2019-04-08] MEDS: ALBUTEROL SULF 2.5 MG/0.5ML(0.5%) NEB SOLN NEB SCH ×4 (00:32→18:52)
[2019-04-08] MEDS: IPRATROPIUM BROM 0.5 MG/2.5ML INH SOL NEB SCH ×4 (00:32→18:52)
--- NOTE | 2019-04-08 03:45 | NUR ---
Assumed patient care. Patient in bed alert and oriented x 2 with periods of confusion, able to answer yes and no to simple questions. Patient's respiration even and unlabored. No non verbal cues to pain noted and observed. Plan of care discussed, patient requires reinforcement. Will continue to monitor.
--- NOTE | 2019-04-08 03:58 | NUR ---
Care endorsed to TERRI Avendano. Patient is stable with no s/s of distress at this time.
[2019-04-08 05:00] VITALS: BP 143/85
[2019-04-08] MEDS: ceFAZolin 1GM/50ML 50 ML IV SCH ×3 (05:39→18:16)
[2019-04-08] MEDS: CLINDAMYCIN 600MG IV 50 ML IV SCH ×3 (05:40→22:11)
[2019-04-08 06:36] LABS: Albumin 1.9 g/dL (3.4-5.0); Calcium 7.6 mg/dL (8.5-10.1); Potassium 3.7 mmol/L (3.5-5.1)
[2019-04-08 06:39] LABS: BUN/Creatinine Ratio 11.9; Bilirubin, Total 1.7 mg/dL (0.2-1.0); Total Protein 5.8 g/dL (6.4-8.2)
--- NOTE | 2019-04-08 07:30 | NUR ---
Opening Shift Note Assumed care of patient, awake, alert, and oriented x4. No S/S of distress/SOB, but patient is reporting generalized body pain of 5/10. PICC line is in right upper arm triple lumen and is asymptomatic, intact, patent, and infusing D5 in NS at 30 mL/hour. Valdez catheter is patent and draining clear yellow urine to gravity. Patient is on air bed, and bed is locked and in lowest position, call light is within reach. Instructed on POC and to call for assist PRN, and patient verbalized understanding. Will continue to monitor for changes Q1hr and PRN.
[2019-04-08] MEDS: Ensure Enlive Vanilla 8oz Bottle PO SCH ×2 (08:00→17:54)
--- NOTE | 2019-04-08 08:30 | NUR ---
Dr. Kareem Law, Hospitalist, at bedside to consult patient. No new orders received at this time. Will continue to monitor patient Q1.
[2019-04-08 09:00] VITALS: BP 156/89
[2019-04-08] MEDS: OMEPRAZOLE 20MG/10ML ORAL SUSP PO SCH (10:00)
[2019-04-08] MEDS: FOLIC ACID 1 MG in D5W 5% 50 ML IV SCH (10:33)
[2019-04-08] MEDS: METOPROLOL SUCCINATE XL 50 MG TAB PO SCH (10:33)
[2019-04-08] MEDS: THIAMINE 100mg/ml INJ (200mg/2ml VIAL) IV SCH (10:33)
[2019-04-08] MEDS: METOCLOPRAMIDE HCL 5MG/ml INJ 2ml VIAL IV SCH ×2 (10:33→22:11)
[2019-04-08] MEDS: SODIUM CHLOR 0.9% PF (SALINE LOCK) 10ML VIAL/SYR IV SCH ×2 (10:34→22:15)
[2019-04-08] MEDS: D5W 5% 1,000 ML IV SCH (10:35)
--- NOTE | 2019-04-08 11:15 | NUR ---
Physical Therapy at bedside.
[2019-04-08 13:00] VITALS: BP 154/88
--- NOTE | 2019-04-08 14:13 | NUR ---
Found patient smoking a cigarette in his bed, immediately put cigarette out and explained no smoking policy to patient. Will continue to monitor patient Q10 minutes.
--- NOTE | 2019-04-08 14:16 | NUR ---
Respiratory Therapist at bedside.
--- NOTE | 2019-04-08 14:19 | NUR ---
WOUND CARE NOTE: Weekly reevaluation by wound care team. Patient on wound care rounding due to low Brenton score and pressure ulcer to sacrum. Patient's wound open area to right sacrum now measuring 2x1.5cm. Skin tears to bilateral arms healing appropriately. RECOMMENDATIONS: Nursing to continue with previous wound/skin care orders; wound care team to continue to follow. Addendum: 04/08/19 at 1424 by LORRAINE GABRIEL RN Amended: Links added.
[2019-04-08 15:54] VITALS: BP 154/88
--- NOTE | 2019-04-08 16:00 | NUR ---
PICC LINE REMOVED Patient pulled PICC line out 20 cm; DC'd PICC line with clean sterile technique, catheter fully intact. Pressure dressing applied to site. Patient tolerated well.
--- NOTE | 2019-04-08 16:57 | NUR ---
IV insertion IV access obtained, via clean sterile technique by inserting 20 gauge catheter at right wrist after 1 attempt. IV secured properly. No trauma to site. Patient tolerated procedure well.
[2019-04-08 17:28] VITALS: BP 163/89
--- NOTE | 2019-04-08 19:30 | NUR ---
Opening shift note Patient in bed sleeping with eyes closed. Pt's respiration even and unlabored, no non verbal cues to pain noted and observed. Valdez intact and patent, draining moderate amount of clear barbie urine. Will continue to monitor.
--- NOTE | 2019-04-08 20:15 | NUR ---
Patient tried to get off bed, stated "I want to go to bed now" Re-oriented patient and repositioned patient in bed. Will continue to monitor.
[2019-04-08 21:30] VITALS: BP 140/81
[2019-04-09] MEDS: ceFAZolin 1GM/50ML 50 ML IV SCH ×5 (00:31→23:57)
[2019-04-09] MEDS: ALBUTEROL SULF 2.5 MG/0.5ML(0.5%) NEB SOLN NEB SCH ×4 (00:52→18:39)
[2019-04-09] MEDS: IPRATROPIUM BROM 0.5 MG/2.5ML INH SOL NEB SCH ×4 (00:52→18:39)
[2019-04-09 05:00] VITALS: BP 161/90
[2019-04-09] MEDS: D5W 5% 1,000 ML IV SCH (07:15)
[2019-04-09] MEDS: CLINDAMYCIN 600MG IV 50 ML IV SCH ×3 (07:17→21:40)
--- NOTE | 2019-04-09 07:30 | NUR ---
Opening Shift Note Assumed care of patient, awake, alert, and oriented x4. No S/S of distress/SOB or pain. IV is in the right wrist 20 gauge and is asymptomatic, intact, patent, and is infusing D5 at 30 mL/hour. Valdez catheter is patent and draining clear gold urine to gravity. Bed is locked and in lowest position and call light is within reach. Instructed on POC and to call for assist PRN, and patient verbalized understanding to the best of his ability. Will continue to monitor for changes Q1hr and PRN.
[2019-04-09] MEDS: Ensure Enlive Vanilla 8oz Bottle PO SCH ×2 (08:00→18:00)
--- NOTE | 2019-04-09 08:30 | NUR ---
Dr. Law, Hospitalist, at bedside. No new orders received at this time.
--- NOTE | 2019-04-09 08:31 | NUR ---
Patient reports that he has a place to go when he is discharged. He states he can go to his brothers house, and that is what his plan is if he gets discharged tomorrow.
[2019-04-09 09:00] VITALS: BP 152/89
[2019-04-09 09:00] LABS: Potassium 3.9 mmol/L (3.5-5.1)
[2019-04-09 09:05] LABS: Bilirubin, Total 1.7 mg/dL (0.2-1.0); Total Protein 6.3 g/dL (6.4-8.2)
--- NOTE | 2019-04-09 10:00 | NUR ---
Physical therapy at bedside.
[2019-04-09] MEDS: SODIUM CHLOR 0.9% PF (SALINE LOCK) 10ML VIAL/SYR IV SCH ×2 (10:19→21:40)
[2019-04-09] MEDS: FOLIC ACID 1 MG in D5W 5% 50 ML IV SCH (10:20)
[2019-04-09] MEDS: OMEPRAZOLE 20MG/10ML ORAL SUSP PO SCH (10:20)
[2019-04-09] MEDS: THIAMINE 100mg/ml INJ (200mg/2ml VIAL) IV SCH (10:20)
[2019-04-09] MEDS: METOCLOPRAMIDE HCL 5MG/ml INJ 2ml VIAL IV SCH ×2 (10:21→21:40)
[2019-04-09] MEDS: METOPROLOL SUCCINATE XL 50 MG TAB PO SCH (10:21)
--- NOTE | 2019-04-09 11:15 | NUR ---
IV removal IV DC'd with clean sterile technique, catheter fully intact. Pressure dressing applied to site. Patient tolerated well.
[2019-04-09 13:00] VITALS: BP 115/66
--- NOTE | 2019-04-09 13:00 | NUR ---
IV insertion IV access obtained, via clean sterile technique by inserting 20 gauge catheter at LEFT forearm after 1 attempt. IV secured properly. No trauma to site. Patient tolerated well.
[2019-04-09 17:23] VITALS: BP 121/79
--- NOTE | 2019-04-09 19:09 | NUR ---
Endorsed care to operations supervisor 2nd shift RNSalo.
--- NOTE | 2019-04-09 20:00 | NUR ---
OPENING NOTE RECEIVED REPORT FROM DAYSHIFT RN. ASSUMING ROLE OF CARE OF PATIENT AT THIS TIME. PATIENT SHOWING NO SIGN OF DISTRESS, SHORTNESS OF BREATH, AND PATIENT DENIES ANY PAIN AT THIS TIME. PATIENT ANSWERS QUESTIONS AND FOLLOWS COMMANDS BUT STILL SHOWS PERIODS OF CONFUSION. PATIENT EDUCATED ON PLAN OF CARE FOR THE NIGHT AND PATIENT VERBALIZED UNDERSTANDING. BED LOWERED, CALL LIGHT WITHIN REACH, AND PATIENT WILL BE ROUNDED ON EVERY HOUR AND NEEDED.
[2019-04-09 21:53] VITALS: BP 136/83
[2019-04-10] MEDS: ALBUTEROL SULF 2.5 MG/0.5ML(0.5%) NEB SOLN NEB SCH ×4 (00:29→18:25)
[2019-04-10] MEDS: IPRATROPIUM BROM 0.5 MG/2.5ML INH SOL NEB SCH ×4 (00:29→18:25)
[2019-04-10 04:34] VITALS: BP 142/86
[2019-04-10] MEDS: ceFAZolin 1GM/50ML 50 ML IV SCH (05:34)
[2019-04-10] MEDS: CLINDAMYCIN 600MG IV 50 ML IV SCH (06:16)
[2019-04-10] MEDS: Ensure Enlive Vanilla 8oz Bottle PO SCH ×2 (08:13→19:05)
[2019-04-10] MEDS: D5W 5% 1,000 ML IV SCH (08:54)
[2019-04-10 09:03] VITALS: BP 146/89
[2019-04-10] MEDS: THIAMINE 100mg/ml INJ (200mg/2ml VIAL) IV SCH (09:34)
[2019-04-10] MEDS: SODIUM CHLOR 0.9% PF (SALINE LOCK) 10ML VIAL/SYR IV SCH ×2 (09:34→21:49)
[2019-04-10] MEDS: METOCLOPRAMIDE HCL 5MG/ml INJ 2ml VIAL IV SCH ×2 (09:34→21:49)
[2019-04-10] MEDS: OMEPRAZOLE 20MG/10ML ORAL SUSP PO SCH ×2 (09:36→09:43)
[2019-04-10] MEDS: METOPROLOL SUCCINATE XL 50 MG TAB PO SCH (09:36)
[2019-04-10] MEDS: FOLIC ACID 1 MG in D5W 5% 50 ML IV SCH (09:41)
--- NOTE | 2019-04-10 12:28 | NUR ---
PT 1st AM visit,patient was on the phone and requested from this PTT to comeback later. 2nd AM visit,patient requested to comeback later in the afternoon because he needs to do alot of things. Addendum: 04/10/19 at 1245 by BRANDY WALLER PTT Amended: Links added.
[2019-04-10 12:45] VITALS: BP 136/77
--- NOTE | 2019-04-10 16:15 | NUR ---
Care transferred to TERRI Farrell. Assumed care of patient, awake and alert. No S/S of distress/SOB or pain. Instructed on POC and to call for assist PRN, will continue to monitor for changes Q1hr and PRN.
[2019-04-10 17:17] VITALS: BP 137/77
[2019-04-10 22:00] VITALS: BP 158/85
[2019-04-11] MEDS: ALBUTEROL SULF 2.5 MG/0.5ML(0.5%) NEB SOLN NEB SCH ×3 (00:30→11:27)
[2019-04-11] MEDS: IPRATROPIUM BROM 0.5 MG/2.5ML INH SOL NEB SCH ×3 (00:30→11:27)
[2019-04-11 05:00] VITALS: BP 160/92
[2019-04-11 07:17] VITALS: BP 160/92
[2019-04-11] MEDS: Ensure Enlive Vanilla 8oz Bottle PO SCH (08:01)
[2019-04-11 08:56] VITALS: BP 150/79
--- NOTE | 2019-04-11 09:23 | NUR ---
DUARTE CATHETER DISCONTINUED PER DR GEE
[2019-04-11] MEDS: THIAMINE 100mg/ml INJ (200mg/2ml VIAL) IV SCH (09:47)
[2019-04-11] MEDS: OMEPRAZOLE 20MG/10ML ORAL SUSP PO SCH (09:48)
[2019-04-11] MEDS: METOCLOPRAMIDE HCL 5MG/ml INJ 2ml VIAL IV SCH (09:48)
[2019-04-11] MEDS: SODIUM CHLOR 0.9% PF (SALINE LOCK) 10ML VIAL/SYR IV SCH (09:48)
[2019-04-11] MEDS: FOLIC ACID 1 MG in D5W 5% 50 ML IV SCH (09:48)
[2019-04-11] MEDS: METOPROLOL SUCCINATE XL 50 MG TAB PO SCH (09:50)
--- NOTE | 2019-04-11 10:23 | NUR ---
re-assessment Patient has been provided with a list of room and boards. Patient is reviewing list. Patient also informed me he is looking into finding a [employer] apartment. Patient informed me he was living with his brother prior to admission, but does not want to return home with his brother. Patient informed me his brother is charging him 600.00 per month to rent a room. Patient wants his own place to live. I have informed patient he has to decide soon on where he is going. I informed patient he will be discharged today or tomorrow. Patient verbalized understanding. Addendum: 04/11/19 at 1027 by Marisol CASILLAS Amended: Links added.
[2019-04-11 12:24] VITALS: BP 150/79
--- NOTE | 2019-04-11 13:16 | NUR ---
PT Patient refused to be OOB during morning PT visit and stated he has to make calls for a place to live after getting out of hospital. Addendum: 04/11/19 at 1317 by BRANDY WALLER PTT Amended: Links added.
[2019-04-11 13:18] VITALS: BP 160/96
--- NOTE | 2019-04-11 14:40 | NUR ---
PT Patient refused again to be OOB or do PT during afternoon visit. TERRI Claros was notified of pt's refusal. Addendum: 04/11/19 at 1442 by BRANDY WALLER PTT Amended: Links added.
--- NOTE | 2019-04-11 15:12 | NUR ---
Nutrition Follow-up Notes Wt.: 91.0 kg Pt's sleeping with no family by bedside when rounded this morning. Pt's no signs of distress noted earlier, currently on Puree 2 gms Na, Low Fat diet with Ensure Enlive 1 carton BID, has adequate PO of >75% x 2 days per RN doc Est. Needs: 1950 kcal to 2350 kcal (25-30 kcal/kgBW), 78 gms to 91 gms pro (1.0-1.3 gms/kgBW d/t severe hypoalbuminemia). Will continue to monitor pertinent labs and reassess nutrient need prn Labs: No new albs today 04/09: CA 8.0 L, TRENT 1.7 H, ALB 2.0 L Skin: Brenton scale 20 low risk, pt's medial sacrum pressure ulcer, left arm skin tear and multiple bruises per RN doc. Pls refer to beef grader's notes for further details re: tx plans. GI: Pt had 1 BM 04/08 per bottomer operator. PES: Altered nutrition related lab values r/t current/chronic medical condition aeb hypokalemia, low renal labs, hyperbilirubinemia, elev. LFTs, hypocalcemia and severe hypoalbuminemia Increased nutrient needs r/t chronic current medical condition aeb severe hypoalbuminemia, <75% consumed meals. Will continue to monitor PO intake, skin status, pertinent labs and weight trend. F/u in 3 to 5 days. Rec.: 1.) Continue close supervision and feeding assistance prn during meals. 2.) If Albumin level continues trending down with improved renal labs, consider Prostat 1 pkt BID. 3.) Consider daily MVI with minerals and Asc acid 500 mgs BID prn. 4.) Refer to RD for further nutrition education and weight monitoring upon discharged. 5.) Continue current plan of care.
--- NOTE | 2019-04-11 15:14 | NUR ---
Pt upset due to discharge. Pt ws given options as to discharge plans but now he states he just wants to go get his keys and get his car. The hospital gave the pt a new wheelchair for home. Pt was questions as to if he would return to his previous living plans. However he states no. Pt does not want to make a concrete decision.. Have spoken to pt twice but each time there is no plan.
--- NOTE | 2019-04-11 16:09 | NUR ---
PATIENT DISCHARGED HOME . PATIENT STATED HE HAD ARRANGED FOR LIFT TO PICK HIM UP AND TRANSPORT HIM TO A FRIENDS HOUSE. ALL DISCHARGE INFORMATION GIVEN. ALL DISCHARGE PAPERWORK SIGNED. ALL IV ACCESS DISCONTINUED. TELEMETRY DISCONTINUED AND RETURNED TO PEGGY.
== END 2019-04-11 16:00 | disposition home or self-care (01) | DRG 870 ==
LOC: ER 06:52 → EDBD 06:52 → TELE 06:53 → TELE-CENTR 03-18 13:59 → TELE-WESTW 03-22 17:09 → ICU WEST 03-24 03:20 → DOU IN ICU 03-29 20:53 → TELE-EAST 04-01 20:51
PROVIDERS: ADMIT Internal Medicine; ATTEND Family Medicine
PROC: 5A1955Z Respiratory Ventilation, Greater than 96 Consecutive Hours (ICD-10-PCS; principal; 2019-03-24)
PROC: 0BH17EZ Insertion of Endotracheal Airway into Trachea, Via Natural or Artificial Opening (ICD-10-PCS; 2019-03-24)
PROC: 02HV33Z Insertion of Infusion Device into Superior Vena Cava, Percutaneous Approach (ICD-10-PCS; 2019-03-24)
PROC: 0D9670Z Drainage of Stomach with Drainage Device, Via Natural or Artificial Opening (ICD-10-PCS; 2019-03-25)
DX: A41.9 Sepsis, unspecified organism (principal); G92 Toxic encephalopathy; J18.1 Lobar pneumonia, unspecified organism; J96.01 Acute respiratory failure with hypoxia; R65.21 Severe sepsis with septic shock; K72.91 Hepatic failure, unspecified with coma; D61.818 Other pancytopenia; E87.0 Hyperosmolality and hypernatremia; E87.1 Hypo-osmolality and hyponatremia; G93.1 Anoxic brain damage, not elsewhere classified; J44.0 Chronic obstructive pulmonary disease with (acute) lower respiratory infection; F10.231 Alcohol dependence with withdrawal delirium; K70.30 Alcoholic cirrhosis of liver without ascites; E53.8 Deficiency of other specified B group vitamins; L89.152 Pressure ulcer of sacral region, stage 2; E78.00 Pure hypercholesterolemia, unspecified; E83.51 Hypocalcemia; E87.6 Hypokalemia; F12.90 Cannabis use, unspecified, uncomplicated; F17.210 Nicotine dependence, cigarettes, uncomplicated; I10 Essential (primary) hypertension; K76.0 Fatty (change of) liver, not elsewhere classified; M47.9 Spondylosis, unspecified; R29.6 Repeated falls; Y95 Nosocomial condition; J32.0 Chronic maxillary sinusitis; Z79.899 Other long term (current) drug therapy; Z82.0 Family history of epilepsy and other diseases of the nervous system; Z82.49 Family history of ischemic heart disease and other diseases of the circulatory system; Z85.07 Personal history of malignant neoplasm of pancreas; Z90.49 Acquired absence of other specified parts of digestive tract; Z93.3 Colostomy status; Z80.0 Family history of malignant neoplasm of digestive organs
CPT/HCPCS: 36415; 36569; 36600; 51702; 70450; 71045; 71275; 74176; 74250; 76705; 80048; 80053; 80074; 80202; 80307; 81001; 82140; 82150; 82607; 82746; 82805; 82962; 83605; 83690; 83880; 84132; 84443; 84484; 85025; 85379; 85610; 85730; 87040; 87070; 87077; 87081; 87086; 87186; 87205; 92507; 92610; 93005; 93306; 94003; 94640; 94761; 95819; 96365; 96366; 96375; 97110; 97116; 97163; 97530; A4618; C9113; G0378; J0330; J0610; J0690; J0696; J2250; J2543; J3480; J3490; J7042; J7060

== ENCOUNTER 2019-04-11 22:20 | Emergency (ER) | payer SELFPAY ==
[~2019-04-11] VITALS: Ht 165.1 cm; Wt 60.3 kg
[2019-04-11 22:20] VITALS: BP 139/87
== END 2019-04-11 23:20 | disposition left against medical advice (07) ==
LOC: ER 22:21
DX: K94.03 Colostomy malfunction (principal); Z53.21 Procedure and treatment not carried out due to patient leaving prior to being seen by health care provider

== ENCOUNTER 2019-04-12 01:35 | Emergency (ER) | payer SELFPAY ==
[~2019-04-12] VITALS: Ht 185.4 cm; Wt 68.0 kg
[2019-04-12] MEDS ORDERED: cloNIDine HCL 0.1 MG TAB PO ONE (02:30)
[2019-04-12 03:01] LABS: Basophils # (auto) 0.1 uL; Eosinophils # (auto) 0.1 uL; Hematocrit 29.4 % (41.0-53.0); Hemoglobin 9.9 g/dL (13.5-17.5); Lymphocytes # (auto) 0.9 uL; Lymphocytes % (auto) 8.9 % (10.0-50.0); Mean Corpuscular Hemoglobin 33.1 pg (28.0-32.0); Mean Corpuscular Hgb Conc. 33.7 g/dL (32.0-36.0); Mean Corpuscular Volume 98.2 fL (80.0-100.0); Monocytes # (auto) 0.9 uL; Monocytes % (auto) 8.4 % (0.0-12.0); Neutrophils # (auto) 8.4 uL; Neutrophils % (auto) 80.7 % (37.0-80.0); Platelet Count (auto) 293 10^3/uL (140-450); Red Blood Cells 2.99 10^6/uL (4.5-5.90); Red Cell Distribution Width 14.8 % (11.8-14.3); White Blood Cell 10.4 10^3/uL (4.4-10.8)
[2019-04-12 03:24] LABS: Alanine Aminotransferase 25 U/L (16-61); Albumin 2.4 g/dL (3.4-5.0); Anion Gap 11 (5-15); Aspartate Aminotransferase 134 U/L (15-37); BUN/Creatinine Ratio 12.3; Blood Urea Nitrogen 13 mg/dL (7-18); Calcium 7.9 mg/dL (8.5-10.1); Carbon Dioxide 22 mmol/L (21-32); Chloride 102 mmol/L (98-107); GFR African American 93 mL/min; GFR Non-African American 77 mL/min; Glucose 87 mg/dL (74-106); Potassium 4.1 mmol/L (3.5-5.1); Sodium 135 mmol/L (136-145)
[2019-04-12 03:28] LABS: Alkaline Phosphatase 173 U/L (45-117); Bilirubin, Total 2.1 mg/dL (0.2-1.0); Total Protein 6.7 g/dL (6.4-8.2)
[2019-04-12 04:08] LABS: Urine WBC None Seen /hpf (0 - 3)
[2019-04-12 04:29] LABS: Urine Bacteria NONE SEEN /hpf (None Seen); Urine Blood Negative /uL (Negative); Urine Specific Gravity 1.011 (1.001-1.035)
[2019-04-12] MEDS ORDERED: SODIUM CHLORIDE 0.9% 1,000 ML IV ONE (07:27)
[2019-04-12 13:00] VITALS: BP 142/83
== END 2019-04-12 13:30 | disposition home or self-care (01) ==
LOC: EDBD 01:35 → ER 01:39
DX: R07.89 Other chest pain (principal); R94.5 Abnormal results of liver function studies; E03.9 Hypothyroidism, unspecified
CPT/HCPCS: 36415; 71045; 80053; 81001; 83880; 84443; 84484; 85025; 93005; 99284; J7030; 96360

== ENCOUNTER 2019-04-22 10:46 | Emergency (ER) | payer MEDICAID ==
[~2019-04-22] VITALS: Ht 172.7 cm; Wt 81.6 kg
[2019-04-22] MEDS ORDERED: IPRATROPIUM BROM 0.5 MG/2.5ML INH SOL NEB ONE (11:15)
[2019-04-22] MEDS ORDERED: ALBUTEROL SULF 2.5 MG/0.5ML(0.5%) NEB SOLN NEB ONE (11:15)
[2019-04-22 11:36] LABS: Basophils # (auto) 0.1 uL; Basophils % (auto) 0.6 % (0.0-2.0); Eosinophils # (auto) 0.1 uL; Hemoglobin 12.5 g/dL (13.5-17.5); Lymphocytes # (auto) 0.8 uL; Lymphocytes % (auto) 7.3 % (10.0-50.0); Mean Corpuscular Hemoglobin 32.5 pg (28.0-32.0); Mean Corpuscular Hgb Conc. 33.1 g/dL (32.0-36.0); Mean Corpuscular Volume 98.4 fL (80.0-100.0); Monocytes # (auto) 0.7 uL; Monocytes % (auto) 6.1 % (0.0-12.0); Neutrophils # (auto) 9.2 uL; Platelet Count (auto) 325 10^3/uL (140-450); Red Blood Cells 3.86 10^6/uL (4.5-5.90); Red Cell Distribution Width 14.5 % (11.8-14.3); White Blood Cell 10.8 10^3/uL (4.4-10.8)
[2019-04-22 12:00] LABS: Albumin 2.4 g/dL (3.4-5.0); Anion Gap 8 (5-15); Blood Urea Nitrogen 8 mg/dL (7-18); Calcium 7.9 mg/dL (8.5-10.1); Carbon Dioxide 24 mmol/L (21-32); Chloride 106 mmol/L (98-107); Glucose 155 mg/dL (74-106); Potassium 3.6 mmol/L (3.5-5.1); Sodium 138 mmol/L (136-145)
[2019-04-22 12:07] LABS: Alanine Aminotransferase 37 U/L (16-61); Alkaline Phosphatase 200 U/L (45-117); Aspartate Aminotransferase 99 U/L (15-37); BUN/Creatinine Ratio 8.3; Bilirubin, Total 1.5 mg/dL (0.2-1.0); GFR African American 105 mL/min; GFR Non-African American 86 mL/min; Total Protein 6.9 g/dL (6.4-8.2)
[2019-04-22 16:16] VITALS: BP 132/92
[2019-05-19] MEDS ORDERED: ALBUAER3 IN (00:48)
== END 2019-04-22 16:18 | disposition home or self-care (01) ==
LOC: EDBD 10:46 → ER 10:47
DX: J45.901 Unspecified asthma with (acute) exacerbation (principal); R73.9 Hyperglycemia, unspecified; I10 Essential (primary) hypertension; F17.210 Nicotine dependence, cigarettes, uncomplicated; Z93.3 Colostomy status
CPT/HCPCS: 36415; 71045; 80053; 84484; 85025; 93005; 94640; 99284; J7611; J7644